=== PATIENT | male | born 1930 | race Caucasian/White ===

== ENCOUNTER 2021-02-16 13:38 | Inpatient (IN) ==
[2021-02-16 15:28] LABS: Hematocrit (blood only) 48.5 % (42-52); Hemoglobin 16.8 g/dL (14.0-18.0); Mean Corpuscular Hemoglobin 32.2 pg (25-34); Mean Corpuscular Hgb Conc 34.6 g/dL (32-36); Mean Corpuscular Volume 92.9 fL (80-100); Platelet Count 254 K/uL (130-400); RDW Coefficient of Variation 13.9 % (11.5-14.5); RDW Standard Deviation 47.1 fL (36.4-46.3); Red Blood Count 5.22 M/uL (4.7-6.1); White Blood Count 22.68 K/uL (4.8-10.8)
[2021-02-16 15:46] LABS: Albumin Level 2.6 gm/dl (3.4-5.0); Blood Urea Nitrogen 38 mg/dl (7-18); Calcium 9.1 mg/dl (8.5-10.1); Carbon Dioxide 29 mmol/L (21-32); Chloride 99 mmol/L (98-107); Est GFR (African American) 42.3 ml/min; Est GFR (Non-African American) 36.5 ml/min; Glucose 136 mg/dl (70-99); Lipase 96 U/L (73-393); Potassium 4.6 mmol/L (3.5-5.1); Sodium 133 mmol/L (136-145)
--- NOTE | 2021-02-16 15:52 | Emergency Department Note ---
History of Present Illness General Chief complaint: Illness Stated complaint: FEVER,ABD PAIN,NOT EATING,WEAKNESS,REF BY DOC Time Seen by Provider: 02/16/21 15:31 Source: patient and family History of Present Illness Provider complaint: Abdominal pain Onset (ago): week(s) Location: abdomen and right Radiation: non-radiation Pain Consistency: + intermittent Maximum Pain Intensity: 6 Quality: + dull Relieved By: + none Exacerbated By: + none Associated symptoms: + fever/chills and + nausea/vomiting (Nausea no vomiting); no chest pain, no cough, no headaches, no malaise and no shortness of breath This is an 89-year-old male sent over from his doctor's office for evaluation of fever and abdominal pain. The patient states that he has had abdominal pain on the right side for approximately 1 week. The pain is intermittent. He describes it as dull. No modifying factors. It is associated with a fever up to 100.6 at his doctor's office today. He has been nauseated but not vomiting. He has had no appetite and has not been eating very much according to his . He has had no urinary symptoms, diarrhea or black or bloody stools. The patient denies any cough or cold symptoms or known exposure to COVID-19. He has had his vaccination for COVID-19. He does have a prior history of colon cancer which was resected years ago. He also has a history of bladder cancer. Home Medications Medication Instructions Recorded Confirmed Type PreserVision AREDS 1 tab PO BID 09/14/19 02/16/21 History amlodipine 5 mg PO QPM 09/14/19 02/16/21 History lisinopril 40 mg PO QAM 09/14/19 02/16/21 History metoprolol succinate 100 mg PO QPM 09/14/19 02/16/21 History multivitamin 1 tab PO QAM 09/14/19 02/16/21 History finasteride [Proscar] 5 mg PO QAM 30 Days #30 tab 09/19/19 02/16/21 Rx tamsulosin 0.4 mg PO HS 30 Days #30 cap 09/19/19 02/16/21 Rx aspirin 81 mg tablet,delayed 81 mg PO HS 09/30/19 02/16/21 History release furosemide [Lasix] 20 mg PO QAM 10/08/19 02/16/21 History nitrofurantoin 100 mg PO Q12H 10 Days #20 cap 12/06/20 02/16/21 Rx monohydrate/macrocrystals 100 mg capsule spironolactone 25 mg PO QAM 02/16/21 02/16/21 History Allergies Allergy/AdvReac Type Severity Reaction Status Date / Time No Known Allergies Allergy Unknown Verified 02/16/21 16:19 Past Med/Surg History Medical History (Updated 02/16/21 @ 20:06 by Jerson Francois MD) Abnormal CT scan of lung Asymptomatic hypertensive urgency Improved- BP 126/60 at cardio appt 10/07/19 Atrial fibrillation Bladder cancer Bladder mass BPH loc w urin obs/LUTS CHF (congestive heart failure) Clot retention of urine Colon cancer 2002 Diastolic heart failure Dyspnea Gross hematuria Hypertension Pleural effusion on right S/p thoracentesis - 1300ml during admission from 09/19/19- feels secondary to decompensated HF. Pneumonia age 18 Pulmonary hypertension Pulmonary nodule Followed by pulm - incidental finding Surgical History History of cataract extraction History of colonoscopy History of cystoscopy EVACUATION OF BLOOD CLOTS History of transurethral resection of prostate 10/19/19-transurethral resection bladder tumor with resection of bladder neck & prostate. S/P carpal tunnel release R/L S/P colon resection 2002 S/P TKR (total knee replacement) R/L S/P tonsillectomy Family History Family/Other Cancer Heart disease Mother , age 85 of stroke No problems noted. Father , age 69 Myocardial infarction Brother No problems noted. 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 and A total of 10 systems reviewed and were otherwise negative Physical Exam Vital Signs Vital Signs - 24 hr 02/16/21 13:41 02/16/21 15:21 02/16/21 15:30 Temperature 37.0 C Temperature Source Temporal Artery Scan Pulse Rate 68 73 71 Pulse Rate from SpO2 Sensor 71 70 Respiratory Rate 18 25 H 38 H Respiratory Effort / Characteristics Non-Labored Respiratory Depth Normal Blood Pressure 177/81 H 178/72 H 167/82 H Blood Pressure Mean 113 107 110 Pulse Oximetry 95 97 97 Oxygen Delivery Method Room Air Sepsis Recent Fever Within 48 Hours No Sepsis New/Unexplained Change in Mental Status No Sepsis Action Taken by Nursing No Action Required 02/16/21 16:00 02/16/21 17:00 02/16/21 17:30 Temperature Temperature Source Pulse Rate 70 65 65 Pulse Rate from SpO2 Sensor 70 66 64 Respiratory Rate 22 28 H 22 Respiratory Effort / Characteristics Respiratory Depth Blood Pressure 172/71 H 175/79 H 170/81 H Blood Pressure Mean 104 111 110 Pulse Oximetry 95 95 94 Oxygen Delivery Method Sepsis Recent Fever Within 48 Hours Sepsis New/Unexplained Change in Mental Status Sepsis Action Taken by Nursing 02/16/21 18:00 02/16/21 18:30 Temperature Temperature Source Pulse Rate 63 67 Pulse Rate from SpO2 Sensor 62 67 Respiratory Rate 25 H 17 Respiratory Effort / Characteristics Respiratory Depth Blood Pressure 171/85 H 178/87 H Blood Pressure Mean 113 117 Pulse Oximetry 95 95 Oxygen Delivery Method Sepsis Recent Fever Within 48 Hours Sepsis New/Unexplained Change in Mental Status Sepsis Action Taken by Nursing Constitutional: Vital signs reviewed. Eyes: Pupils are equal round reactive to light. Conjunctiva are noninjected. ENT: Pharynx is clear without erythema or exudate. Mucous membranes are moist. Neck supple without meningeal signs. Respiratory: Clear to auscultation bilaterally. Breath sounds are equal bilaterally. Cardiovascular: Irregularly irregular rhythm. Regular rate. GI: Soft, nondistended with tenderness over the right mid and upper abdomen. No guarding. No Bustillos sign. Bowel sounds are present. Musculoskeletal: No peripheral edema. No lower extremity tenderness. Integumentary: No cyanosis. or jaundice. Neurological: The patient is awake and alert. No focal deficits. Psychiatric: Normal affect. Not anxious appearing. Course Administered Medications Discontinued Medications Piperacillin Sod/Tazobactam Sod (Zosyn) 4.5 gm in 120 mls @ 240 mls/hr IV NOW ONE Stop: 02/16/21 18:17 Last Admin: 02/16/21 17:58 Dose: 240 mls/hr Documented by: [id number] Medical Decision Making Differential Diagnosis Colon cancer, abdominal mass, bowel obstruction, pancreatitis, pneumonia, sepsis, pyelonephritis Medical Records Attestation: I reviewed the patient's medical records. I did perform a limited focused review of portions of the patient's old chart on the electronic medical record. The patient has had no recent pertinent visits to this hospital. Home Medications Current Medication List: was personally reviewed by me Laboratory Data Attestation: I reviewed the patient's lab results. Result diagrams: 02/16/21 15:08 02/16/21 15:08 Lab Results 02/16/21 02/16/21 02/16/21 Range/Units 15:08 15:08 15:38 WBC 22.68 H (4.8-10.8) K/uL RBC 5.22 (4.7-6.1) M/uL Hgb 16.8 (14.0-18.0) g/dL Hct 48.5 (42-52) % MCV 92.9 (80-100) fL MCH 32.2 (25-34) pg MCHC 34.6 (32-36) g/dL RDW Std Deviation 47.1 H (36.4-46.3) fL RDW Coeff of Naeem 13.9 (11.5-14.5) % Plt Count 254 (130-400) K/uL MPV 11.0 H (7.4-10.4) fL Immature Gran % (Auto) 0.5 % Neut % (Auto) 90.0 % Lymph % (Auto) 6.6 % [place] % (Auto) 2.9 % Eos % (Auto) 0.0 % Baso % (Auto) 0.0 % Neut # (Auto) 20.39 H (1.4-6.5) K/uL Lymph # (Auto) 1.50 (1.2-3.4) K/uL [place] # (Auto) 0.66 H (0.11-0.59) K/uL Eos # (Auto) 0.00 (0-0.5) K/uL Baso # (Auto) 0.01 (0-0.2) K/uL Immature Gran # (Auto) 0.12 H (0.00-0.02) K/uL Polychromasia 1+ Sodium 133 L (136-145) mmol/L Potassium 4.6 (3.5-5.1) mmol/L Chloride 99 (98-107) mmol/L Carbon Dioxide 29 (21-32) mmol/L Anion Gap 5.0 (3-11) BUN 38 H (7-18) mg/dl Creatinine 1.65 H (0.6-1.4) mg/dl Est Cr Clr Drug Dosing Not Reportable Est GFR ( Amer) 42.3 ml/min Est GFR (Non-Af Amer) 36.5 ml/min BUN/Creatinine Ratio 23.0 H (10-20) Glucose 136 H (70-99) mg/dl Lactate (0.4-2.0) mmol/L Calcium 9.1 (8.5-10.1) mg/dl Total Bilirubin 3.1 H (0.2-1) mg/dl AST 65 H (15-37) U/L ALT 103 H (12-78) U/L Alkaline Phosphatase 210 H (45-117) U/L Total Protein 7.6 (6.4-8.2) gm/dl Albumin 2.6 L (3.4-5.0) gm/dl Globulin 4.9 H (2.5-4.0) gm/dl Albumin/Globulin Ratio 0.5 L (0.9-2) Lipase 96 (73-393) U/L Urine Color Dark Yellow Urine Appearance Turbid A (Clear) Urine pH 5.0 (4.5-7.5) Ur Specific [place] 1.019 (1.000-1.030) Urine Protein 2+ H (Negative) Urine Glucose (UA) Negative (Negative) Urine Ketones Trace H (Negative) Urine Blood 3+ H (Negative) Urine Nitrite Negative (Negative) Urine Bilirubin 1+ H (Negative) Urine Urobilinogen Positive H (Negative) Ur Leukocyte Esterase 3+ H (Negative) Urine WBC (Auto) >30 H (0-5) /hpf Urine RBC (Auto) 5-10 H (0-4) /hpf U Hyaline Cast (Auto) 1-5 (0-5) /lpf U Epithel Cells (Auto) 20-30 H (0-5) /lpf Urine Bacteria (Auto) 4+ H (Negative) Urine Yeast Not Reportable COVID-19 Eval Order SARS-CoV-2 (PCR) (Negative) 02/16/21 02/16/21 02/16/21 Range/Units 15:46 16:10 16:10 WBC (4.8-10.8) K/uL RBC (4.7-6.1) M/uL Hgb (14.0-18.0) g/dL Hct (42-52) % MCV (80-100) fL MCH (25-34) pg MCHC (32-36) g/dL RDW Std Deviation (36.4-46.3) fL RDW Coeff of Naeem (11.5-14.5) % Plt Count (130-400) K/uL MPV (7.4-10.4) fL Immature Gran % (Auto) % Neut % (Auto) % Lymph % (Auto) % [place] % (Auto) % Eos % (Auto) % Baso % (Auto) % Neut # (Auto) (1.4-6.5) K/uL Lymph # (Auto) (1.2-3.4) K/uL [place] # (Auto) (0.11-0.59) K/uL Eos # (Auto) (0-0.5) K/uL Baso # (Auto) (0-0.2) K/uL Immature Gran # (Auto) (0.00-0.02) K/uL Polychromasia Sodium (136-145) mmol/L Potassium (3.5-5.1) mmol/L Chloride (98-107) mmol/L Carbon Dioxide (21-32) mmol/L Anion Gap (3-11) BUN (7-18) mg/dl Creatinine (0.6-1.4) mg/dl Est Cr Clr Drug Dosing Est GFR ( Amer) ml/min Est GFR (Non-Af Amer) ml/min BUN/Creatinine Ratio (10-20) Glucose (70-99) mg/dl Lactate 1.8 (0.4-2.0) mmol/L Calcium (8.5-10.1) mg/dl Total Bilirubin (0.2-1) mg/dl AST (15-37) U/L ALT (12-78) U/L Alkaline Phosphatase (45-117) U/L Total Protein (6.4-8.2) gm/dl Albumin (3.4-5.0) gm/dl Globulin (2.5-4.0) gm/dl Albumin/Globulin Ratio (0.9-2) Lipase (73-393) U/L Urine Color Urine Appearance (Clear) Urine pH (4.5-7.5) Ur Specific [place] (1.000-1.030) Urine Protein (Negative) Urine Glucose (UA) (Negative) Urine Ketones (Negative) Urine Blood (Negative) Urine Nitrite (Negative) Urine Bilirubin (Negative) Urine Urobilinogen (Negative) Ur Leukocyte Esterase (Negative) Urine WBC (Auto) (0-5) /hpf Urine RBC (Auto) (0-4) /hpf U Hyaline Cast (Auto) (0-5) /lpf U Epithel Cells (Auto) (0-5) /lpf Urine Bacteria (Auto) (Negative) Urine Yeast COVID-19 Eval Order Covid19 at [facility] SARS-CoV-2 (PCR) NEGATIVE (Negative) Imaging Data Radiologist's Impression: Abdomen/Pelvis CT 02/16/21 15:45 CT SCAN OF THE ABDOMEN AND PELVIS WITHOUT CONTRAST CLINICAL HISTORY: right sided pain eval for mass COMPARISON STUDY: 09/14/2019 TECHNIQUE: CT scan of the abdomen and pelvis was performed from the lung bases to the proximal femurs. Images are reviewed in the axial, sagittal, and coronal planes. IV contrast was not administered for this examination. A dose lowering technique was utilized adhering to the principles of ALARA. CT DOSE: 1255.39 mGycm FINDINGS: Lower chest: The heart is enlarged with coronary artery calcifications. There are small bilateral pleural effusions with associated right basilar parenchymal opacities, atelectatic versus infectious/inflammatory Liver: There is a 1 cm left lobe hepatic cyst. No additional masses are visualized given the limitations of a noncontrast study Gallbladder: Cholelithiasis Spleen: Normal in size and attenuation. Pancreas: Unremarkable. Adrenal glands: Unremarkable. Kidneys: No renal, ureteral, or bladder calculi are visualized. Bowel: There are no transition zones indicate bowel obstruction. There is a sigmoid anastomosis. There is colonic diverticulosis. There are no acute peridiverticular inflammatory changes. The appendix is mildly thickened measuring 8 mm. This remain similar to the prior study. There is minimal infilt ration of the fat surrounding the distal appendix but this appears to relate to generalized peritoneal edema. Peritoneum: There is no intraperitoneal free air or abdominal ascites. Vasculature: There are extensive atheromatous changes within the aorta with a high-grade stenosis of the infrarenal abdominal aorta. There is no evidence of aneurysm. There are extensive atheromatous changes within the common femoral and superficial femoral arteries. Adenopathy: None. Pelvic viscera: There is mild bladder wall thickening. There are prostatic calcifications present. There is presacral soft tissue thickening, likely postsurgical. Skeletal structures: There is an age-indeterminate superior endplate L2 compression fracture which was not present on the prior study. IMPRESSION: 1. Bilateral pleural effusions right greater than left associated right basilar atelectasis/consolidation 2. Cardiomegaly and coronary artery calcifications 3. Cholelithiasis 4. No evidence of bowel obstruction. No evidence of free air 5. Mild appendiceal thickening, similar to the preceding study. No convincing evidence of acute appendicitis, given the limitations of a study performed without intravenous or oral contrast. No evidence of acute diverticulitis 6. Extensive atherosclerotic arterial disease with a suspected high-grade aortic stenosis, and bilateral common femoral and superficial femoral artery stenotic lesions 7. Mild bladder wall thickening. 8. Interval development of an age-indeterminate superior endplate L2 compression fracture 9. No renal, ureteral, or bladder calculi identified ACT 112: Negative or not required by law. Electronically signed by: Main Cárdenas M.D. 02/16/2021 5:00 PM Chest X-Ray 02/16/21 15:47 XR chest 1V portable CLINICAL HISTORY: fever COMPARISON STUDY: 09/19/2019, CT scan dated 10/06/2020 FINDINGS: The heart is enlarged. There is an 11 mm right lower lung zone pulmon tammy nodule. There is small right pleural effusion with associated right basilar opacities atelectatic versus/inflammatory there is no pneumothorax.[ IMPRESSION: 1. Cardiomegaly 2. Small right pleural effusion with associated right basilar atelectas is/consolidation 3. Indeterminate 11 mm right lower lung zone pulmonary nodule ACT 112: Negative or not required by law. Electronically signed by: Main Cárdenas M.D. 02/16/2021 4:09 PM ECG Data Attestation: I personally reviewed and interpreted this ECG as follows: Indication: + abdominal pain Rate (beats per minute): 70 Rhythm: + atrial fibrillation ECG Intervals/blocks: + Right Bundle branch block ECG Findings: no PVCs Comparison ECG Date: from (September 15, 2019) Change: no significant change MDM Narrative I did evaluate the patient as noted above. The patient is presenting with fever and right-sided abdominal pain. IV access was established. I did place an order for continuous cardiac monitoring. The monitor showed atrial fibrillation with rate of 70 bpm. I did order and personally review the patient's 12-lead EKG as described above. He has A. fib without any acute ischemic changes. I did order and personally reviewed the images of the patient's chest x-ray as described above. He has a right-sided effusion with atelectasis versus consolidation. I did order a urine analysis. He has a significant UTI. Blood cultures were ordered. He was given Zosyn IV. I did order and review the patient's blood work as noted in the electronic medical record. His white count is elevated at 22,000. He is not anemic. Platelet count is within normal limits. Electrolytes demonstrate a sodium of 133. His creatinine is elevated 1.65. LFTs are also abnormal with a bilirubin at 3.1, AST of 65, ALT of 103 and alk phos of 210. Covid testing is negative. I did order a CT of the abdomen and pelvis. I did review the images myself as well as the radiology report as described above. He has cholelithiasis without cholecystitis. He has mild appendiceal thickening but this was present on his previous CT scan and he has no convincing evidence of acute appendicitis. There is mild bladder wall thickening. He has gallstones but no evidence of cholecystitis according to the radiologist. I did order a gallbladder ultrasound which is currently pending. I did discuss the test results with the patient and his . He will be hospitalized for further care and evaluation. I did discuss case with the hospitalist and case loader operator. Impression & Plan Sepsis, Acute pyelonephritis, NATE (acute kidney injury), Abnormal LFTs, Cholelithiasis Discharge Plan Visit Data Chief Complaint: Illness Stated Complaint: FEVER,ABD PAIN,NOT EATING,WEAKNESS,REF BY DOC ED Provider: Jerson Francois Discharge Problem: Sepsis, Acute pyelonephritis, NATE (acute kidney injury), Abnormal LFTs, Cholelithiasis Patient Disposition: Being Evaluated by Hospitalist Forms Stand Alone Forms: My [facility] Prescriptions Prescriptions: No Action nitrofurantoin monohyd/m-cryst [Macrobid] 100 mg capsule 100 mg PO Q12H 10 Days Qty: 20 RF: 0 aspirin [Adult Aspirin Regimen] 81 mg tablet,delayed release (DR/EC) 81 mg PO HS RF: 0 multivitamin Tablet 1 tab PO QAM RF: 0 metoprolol succinate 100 mg tablet extended release 24 hr 100 mg PO QPM RF: 0 amlodipine 10 mg Tablet 5 mg PO QPM RF: 0 lisinopril 40 mg Tablet 40 mg PO QAM RF: 0 PreserVision AREDS [id number] Tablet 1 tab PO BID RF: 0 tamsulosin 0.4 mg Capsule 0.4 mg PO HS 30 Days Qty: 30 RF: 3 finasteride [Proscar] 5 mg Tablet 5 mg PO QAM 30 Days Qty: 30 RF: 3 furosemide [Lasix] 20 mg tablet 20 mg PO QAM RF: 0 spironolactone 25 mg tablet 25 mg PO QAM RF: 0 Referrals Referrals: Nahun Escobar MD [Primary Care Provider] - Discharge Problem: Sepsis Qualifiers: Sepsis type: sepsis due to unspecified organism Sepsis acute organ dysfunction status: with acute organ dysfunction Severe sepsis acute organ dysfunction type: acute renal failure Acute renal failure type: unspecified Severe sepsis shock status: without septic shock Qualified Code(s): A41.9 - Sepsis, unspecified organism Cholelithiasis Qualifiers: Cholelithiasis location: gallbladder
[2021-02-16 15:53] LABS: Alanine Aminotransferase 103 U/L (12-78); Albumin Globulin Ratio 0.5 (0.9-2); Alkaline Phosphatase 210 U/L (45-117); Aspartate Aminotransferase 65 U/L (15-37); Bilirubin,Total 3.1 mg/dl (0.2-1); Globulin 4.9 gm/dl (2.5-4.0); Total Protein 7.6 gm/dl (6.4-8.2)
[2021-02-16 15:54] LABS: Appearance Urine Turbid (Clear); Bacteria Urine Automated 4+ (Negative); Blood Urine 3+ (Negative); Color Urine Dark Yellow; Epithelial Cell Urine Auto 20-30 /lpf (0-5); Glucose Urine UA Negative (Negative); Ketones Urine Trace (Negative); Leukocyte Esterase Urine 3+ (Negative); Nitrite Urine Negative (Negative); Protein Urine 2+ (Negative); Specific Gravity Urine 1.019 (1.000-1.030); Urobilinogen Urine Positive (Negative); WBC Urine Automated >30 /hpf (0-5)
[2021-02-16 16:02] LABS: Basophils # (auto) 0.01 K/uL (0-0.2); Immature Granulocytes # (auto) 0.12 K/uL (0.00-0.02); Immature Granulocytes % (auto) 0.5 %; Lymphocytes % (auto) 6.6 %; Monocytes # (auto) 0.66 K/uL (0.11-0.59); Monocytes % (auto) 2.9 %; Neutrophils # (auto) 20.39 K/uL (1.4-6.5); Polychromasia 1+
--- NOTE | 2021-02-16 16:11 | XRay Report ---
XR chest 1V portable CLINICAL HISTORY: fever COMPARISON STUDY: 09/19/2019, CT scan dated 10/06/2020 FINDINGS: The heart is enlarged. There is an 11 mm right lower lung zone pulmonary nodule. There is s mall right pleural effusion with associated right basilar opacities atelectatic versus/inflammatory t here is no pneumothorax.[ IMPRESSION: 1. Cardiomegaly 2. Small right pleural effusion with associated right basilar atelectasis/consolidation 3. Indeterminate 11 mm right lower lung zone pulmonary nodule ACT 112: Negative or not required by law. Electronically signed by: Main Cárdenas M.D. 02/16/2021 4:09 PM
[2021-02-16 16:16] LABS: Bilirubin Urine 1+ (Negative)
--- NOTE | 2021-02-16 17:02 | CT Scan Report ---
CT SCAN OF THE ABDOMEN AND PELVIS WITHOUT CONTRAST CLINICAL HISTORY: right sided pain eval for mass COMPARISON STUDY: 09/14/2019 TECHNIQUE: CT scan of the abdomen and pelvis was performed from the lung bases to the proximal femurs . Images are reviewed in the axial, sagittal, and coronal planes. IV contrast was not administered fo r this examination. A dose lowering technique was utilized adhering to the principles of ALARA. CT DOSE: 1255.39 mGycm FINDINGS: Lower chest: The heart is enlarged with coronary artery calcifications. There are small bilateral ple ural effusions with associated right basilar parenchymal opacities, atelectatic versus infectious/inf lammatory Liver: There is a 1 cm left lobe hepatic cyst. No additional masses are visualized given the limitati ons of a noncontrast study Gallbladder: Cholelithiasis Spleen: Normal in size and attenuation. Pancreas: Unremarkable. Adrenal glands: Unremarkable. Kidneys: No renal, ureteral, or bladder calculi are visualized. Bowel: There are no transition zones indicate bowel obstruction. There is a sigmoid anastomosis. Ther e is colonic diverticulosis. There are no acute peridiverticular inflammatory changes. The appendix i s mildly thickened measuring 8 mm. This remain similar to the prior study. There is minimal infiltrat ion of the fat surrounding the distal appendix but this appears to relate to generalized peritoneal e aranza. Peritoneum: There is no intraperitoneal free air or abdominal ascites. Vasculature: There are extensive atheromatous changes within the aorta with a high-grade stenosis of the infrarenal abdominal aorta. There is no evidence of aneurysm. There are extensive atheromatous ch anges within the common femoral and superficial femoral arteries. Adenopathy: None. Pelvic viscera: There is mild bladder wall thickening. There are prostatic calcifications present. Th ere is presacral soft tissue thickening, likely postsurgical. Skeletal structures: There is an age-indeterminate superior endplate L2 compression fracture which wa s not present on the prior study. IMPRESSION: 1. Bilateral pleural effusions right greater than left associated right basilar atelectasis/consolida tion 2. Cardiomegaly and coronary artery calcifications 3. Cholelithiasis 4. No evidence of bowel obstruction. No evidence of free air 5. Mild appendiceal thickening, similar to the preceding study. No convincing evidence of acute appen dicitis, given the limitations of a study performed without intravenous or oral contrast. No evidence of acute diverticulitis 6. Extensive atherosclerotic arterial disease with a suspected high-grade aortic stenosis, and bilate ral common femoral and superficial femoral artery stenotic lesions 7. Mild bladder wall thickening. 8. Interval development of an age-indeterminate superior endplate L2 compression fracture 9. No renal, ureteral, or bladder calculi identified ACT 112: Negative or not required by law. Electronically signed by: Main Cárdenas M.D. 02/16/2021 5:00 PM
[2021-02-16] MEDS ORDERED: PIPERACILL/TAZOBAC CONSULT ACTIVE PRN ×2 (17:48→19:12)
[2021-02-16] MEDS ORDERED: PIPERACILLIN/TAZOBACTAM 4.5 GM/120 ML BAG IV ONE (17:48)
--- NOTE | 2021-02-16 19:11 | History & Physical Report ---
Date of Service February 16, 2021 Assessment & Plan (1) UTI (urinary tract infection): Presented with right lower quadrant discomfort, weakness and nausea Noted to have UA suggestive of UTI with increase white count Does not meet the sepsis criteria on admission Urine was sent for culture and blood cultures were taken Is started with intravenous Zosyn and will continue We will give cautious amount of intravenous fluid as well Right lower quadrant discomfort CT scan documented to have possible appendicitis but had similar findings before Clinically Bustillos sign has been negative and symptomatically does not feel like a pain appendicitis Symptoms have been going on for 1 week We will observe and get surgical evaluation if needed (2) Acute pyelonephritis: May have acute pyelonephritis No tenderness in the renal angle and CT scan did not identify perinephritis (3) NATE (acute kidney injury): Noted to have increased BUN and creatinine Has NATE likely secondary to dehydration We will give cautious amount of intravenous fluid and monitor PRP (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 and has been ongoing BCG treatment Was told that there is no recurrence (5) Abnormal LFTs: Noted to have abnormal LFTs Has cholelithiasis without any evidence of cholecystitis We will get an ultrasound of the liver to rule out any acute cholecystitis We will monitor liver function We will get hepatitis profile (6) Atrial fibrillation: Heart rate is controlled Continue with current medication Not on any anticoagulation likely secondary to history of hematuria and bladder cancer (7) CHF (congestive heart failure): Does not have any fluid overload and/or symptomatic CHF (8) Pulmonary nodule: Has been followed up in the pulmonary clinic DVT prophylaxis Subcu heparin CODE STATUS Full History of Present Illness Chief Complaint: Right lower abdomen discomfort with nausea, anorexia and weakness for 1 week Primary Care Provider: Nahun Escobar MD He is an 89-year-old male with significant past medical history including urothelial carcinoma of the bladder with ongoing BCG treatment, atrial fibrillation not on any anticoagulation, hypertension, history of CHF with preserved EF, history of colon cancer status post surgery and history of prostatic hypertrophy status post TURP apparently has been complaining of right lower quadrant abdominal discomfort associated with nausea, anorexia and weakness for the last 1 week. He was seen in the clinic today and was sent in with above symptoms for further evaluation and he was noted to have fever of 100.6 degrees in the clinic. He denies any dysuria and frequency, denies any bowel habit changes, any chest pain or palpitation, any fever or chills, any numbness or tingling involving any of the extremities. He was noted to have UA suggestive of infection and his white count was elevated to 22,000. CT scan did not show any intestinal obstruction or any acute appendicitis. He was started with intravenous Zosyn and was admitted to the hospital for continuation of care. Allergies Allergy/AdvReac Type Severity Reaction Status Date / Time No Known Allergies Allergy Unknown Verified 02/16/21 16:19 Home Medications Medication Instructions Recorded Confirmed Type PreserVision AREDS 1 tab PO BID 09/14/19 02/16/21 History amlodipine 5 mg PO QPM 09/14/19 02/16/21 History lisinopril 40 mg PO QAM 09/14/19 02/16/21 History metoprolol succinate 100 mg PO QPM 09/14/19 02/16/21 History multivitamin 1 tab PO QAM 09/14/19 02/16/21 History finasteride [Proscar] 5 mg PO QAM 30 Days #30 tab 09/19/19 02/16/21 Rx tamsulosin 0.4 mg PO HS 30 Days #30 cap 09/19/19 02/16/21 Rx aspirin 81 mg tablet,delayed 81 mg PO HS 09/30/19 02/16/21 History release furosemide [Lasix] 20 mg PO QAM 10/08/19 02/16/21 History nitrofurantoin 100 mg PO Q12H 10 Days #20 cap 12/06/20 02/16/21 Rx monohydrate/macrocrystals 100 mg capsule spironolactone 25 mg PO QAM 02/16/21 02/16/21 History Past Med/Surg History Medical History (Updated 02/16/21 @ 20:06 by Jerson Francois MD) Abnormal CT scan of lung Asymptomatic hypertensive urgency Improved- BP 126/60 at cardio appt 10/07/19 Atrial fibrillation Bladder cancer Bladder mass BPH loc w urin obs/LUTS CHF (congestive heart failure) Clot retention of urine Colon cancer 2002 Diastolic heart failure Dyspnea Gross hematuria Hypertension Pleural effusion on right S/p thoracentesis - 1300ml during admission from 09/19/19- feels secondary to decompensated HF. Pneumonia age 18 Pulmonary hypertension Pulmonary nodule Followed by pulm - incidental finding Surgical History History of cataract extraction History of colonoscopy History of cystoscopy EVACUATION OF BLOOD CLOTS History of transurethral resection of prostate 10/19/19-transurethral resection bladder tumor with resection of bladder neck & prostate. S/P carpal tunnel release R/L S/P colon resection 2002 S/P TKR (total knee replacement) R/L S/P tonsillectomy Family History Family/Other Cancer Heart disease Mother , age 85 of stroke No problems noted. Father , age 69 Myocardial infarction Brother No problems noted. 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 Other Information That Helps Us Care for You: No Feels Safe at Home: Yes Safety Concerns: Feels Safe At This Time Childhood Exposure to Second-Hand Smoke: No caffeine: Yes (a few cups of coffee in the am) Assistive Devices: Walker Review of Systems Review of Systems: All systems reviewed & are unremarkable except as noted in HPI & below Physical Exam Physical Exam: Lying in bed comfortably Constitutional: well developed, well nourished, + ill appearing and + obese Eyes: PERRL, conjunctivae normal, anicteric sclerae ENMT: external ear and nose normal, oropharynx normal Neck: trachea midline, no thyromegaly Respiratory: no respiratory distress Auscultation: lungs clear to auscultation bilaterally Cardiovascular: Rate/Rhythm: + irregularly irregular Heart Sounds: + murmur (2/6 ESM over precordium) Extremities: + edema (Trace edema bilaterally) Gastrointestinal (Abdomen): Inspection/Auscultation: + abdomen distended and normal bowel sounds Percussion/Palpation: + abdomen tender (Mildly tender right lower quadrant, palpable large intestine, McBurney's -) and abdomen soft Musculoskeletal: No acute arthritis in any joint Neurologic: Alert awake and oriented x3. No focal sensory or motor deficit appreciated Psychiatric: A+Ox3, euthymic affect Lymphatic: no cervical or axillary lymphadenopathy Results & Data Results & Data ([facility]) Vital Signs (Past 12 Hours) Vital Signs Temp Pulse Resp BP Pulse Ox 02/16/21 18:30 67 17 178/87 H 95 02/16/21 18:00 63 25 H 171/85 H 95 02/16/21 17:30 65 22 170/81 H 94 02/16/21 17:00 65 28 H 175/79 H 95 02/16/21 16:00 70 22 172/71 H 95 02/16/21 15:30 71 38 H 167/82 H 97 02/16/21 15:21 73 25 H 178/72 H 97 02/16/21 13:41 37.0 C 68 18 177/81 H 95 Laboratory Results Short CBC 02/16/21 Range/Units 15:08 WBC 22.68 H (4.8-10.8) K/uL Hgb 16.8 (14.0-18.0) g/dL Hct 48.5 (42-52) % Plt Count 254 (130-400) K/uL BMP 02/16/21 15:08 Sodium 133 L Potassium 4.6 Chloride 99 Carbon Dioxide 29 BUN 38 H Creatinine 1.65 H Glucose 136 H Calcium 9.1 Liver Function 02/16/21 Range/Units 15:08 Total Bilirubin 3.1 H (0.2-1) mg/dl AST 65 H (15-37) U/L ALT 103 H (12-78) U/L Alkaline Phosphatase 210 H (45-117) U/L Albumin 2.6 L (3.4-5.0) gm/dl Urine 02/16/21 Range/Units 15:38 Urine Color Dark Yellow Urine Appearance Turbid A (Clear) Urine pH 5.0 (4.5-7.5) Ur Specific [place] 1.019 (1.000-1.030) Urine Protein 2+ H (Negative) Urine Glucose (UA) Negative (Negative) Diagnostic Findings CAT of the abdomen and pelvis: IMPRESSION: 1. Bilateral pleural effusions right greater than left associated right basilar atelectasis/consolidation 2. Cardiomegaly and coronary artery calcifications 3. Cholelithiasis 4. No evidence of bowel obstruction. No evidence of free air 5. Mild appendiceal thickening, similar to the preceding study. No convincing evidence of acute appendicitis, given the limitations of a study performed without intravenous or oral contrast. No evidence of acute diverticulitis 6. Extensive atherosclerotic arterial disease with a suspected high-grade aortic stenosis, and bilateral common femoral and superficial femoral artery stenotic lesions 7. Mild bladder wall thickening. 8. Interval development of an age-indeterminate superior endplate L2 compression fracture 9. No renal, ureteral, or bladder calculi identified
[2021-02-16] MEDS ORDERED: PIPERACILLIN/TAZOBACTAM 4.5 GM in DEXTROSE 5% 100 ML IV SCH (19:15)
[2021-02-16] MEDS: SODIUM CHLORIDE 0.9% 1000ML 1,000 ML IV SCH ×2 (19:30→23:21)
--- NOTE | 2021-02-16 20:56 | Ultrasound Report ---
ULTRASOUND RIGHT UPPER QUADRANT ABDOMEN CLINICAL HISTORY: Right upper quadrant abdominal pain. Cholelithiasis. COMPARISON STUDY: Abdominal CT performed the same day 02/16/2021. TECHNIQUE: Real-time, grayscale, and color flow sonography of the right upper quadrant of the abdomen was performed. Images are reviewed in the transverse and longitudinal planes. FINDINGS: Liver: The liver appears cirrhotic in morphology and heterogeneous in echotexture. There is mild nodu larity of the hepatic surface contour. There is no intrahepatic biliary ductal dilatation. The main p ortal vein is patent. Gallbladder: The gallbladder is filled with shadowing gallstones. There is no gallbladder wall thicke ashlyn or pericholecystic fluid. A sonographic Bustillos's sign is reportedly absent. The common bile duct measures up to 0.2 cm in diameter. Pancreas: Visualized portions of the pancreatic head and body are normal in appearance. The splenic v ein is patent. Right kidney: Survey images of the right kidney demonstrate normal size and echotexture. There is no hydronephrosis. Ascites: None. Pleural spaces: A right pleural effusion is noted. IMPRESSION: 1. Cholelithiasis without sonographic evidence of acute cholecystitis. 2. The appearance of the liver suggests early change of cirrhosis. 3. A right pleural effusion is noted. ACT 112: Negative or not required by law. Electronically signed by: Manuel Veronica M.D. 02/16/2021 8:55 PM
[2021-02-16] MEDS: ASPIRIN 81 MG ECTAB PO SCH (23:26)
[2021-02-16] MEDS: METOPROLOL SUCC 50MG EXT REL TAB PO SCH (23:27)
[2021-02-16] MEDS: amLODIPine BESYLATE 5 MG TAB PO SCH (23:27)
[2021-02-16] MEDS: TAMSULOSIN HCL 0.4 MG CAP PO SCH (23:28)
[2021-02-16] MEDS: PIPERACILLIN/TAZOBACTAM 3.375 GM in DEXTROSE 5% 100 ML IV SCH (23:31)
[2021-02-17 05:52] LABS: Basophils # (auto) 0.02 K/uL (0-0.2); Basophils % (auto) 0.1 %; Eosinophils # (auto) 0.01 K/uL (0-0.5); Eosinophils % (auto) 0.1 %; Hematocrit (blood only) 44.5 % (42-52); Immature Granulocytes # (auto) 0.08 K/uL (0.00-0.02); Immature Granulocytes % (auto) 0.4 %; Lymphocytes # (auto) 0.92 K/uL (1.2-3.4); Lymphocytes % (auto) 4.9 %; Mean Corpuscular Hemoglobin 31.5 pg (25-34); Mean Corpuscular Hgb Conc 33.7 g/dL (32-36); Mean Corpuscular Volume 93.5 fL (80-100); Mean Platelet Volume 10.7 fL (7.4-10.4); Monocytes # (auto) 1.05 K/uL (0.11-0.59); Monocytes % (auto) 5.6 %; Neutrophils # (auto) 16.66 K/uL (1.4-6.5); Neutrophils % (auto) 88.9 %; Platelet Count 218 K/uL (130-400); RDW Coefficient of Variation 14.1 % (11.5-14.5); RDW Standard Deviation 48.2 fL (36.4-46.3); Red Blood Count 4.76 M/uL (4.7-6.1); White Blood Count 18.74 K/uL (4.8-10.8)
[2021-02-17] MEDS: SODIUM CHLORIDE 0.9% 1000ML 1,000 ML IV SCH (06:17)
[2021-02-17 06:29] LABS: Albumin Level 2.1 gm/dl (3.4-5.0); BUN Creatinine Ratio 22.2 (10-20); Calcium 8.2 mg/dl (8.5-10.1); Creatinine Clr Calc Pharmacy 31.6 ml/min; Est GFR (African American) 38.1 ml/min; Est GFR (Non-African American) 32.9 ml/min; Potassium 4.5 mmol/L (3.5-5.1)
[2021-02-17 06:33] LABS: Albumin Globulin Ratio 0.6 (0.9-2); Bilirubin,Total 1.9 mg/dl (0.2-1); Globulin 3.8 gm/dl (2.5-4.0); Total Protein 5.9 gm/dl (6.4-8.2)
[2021-02-17] MEDS: SPIRONOLACTONE 25 MG TAB PO SCH (07:36)
[2021-02-17] MEDS: FINASTERIDE 5 MG TAB PO SCH (07:36)
[2021-02-17] MEDS: CEROVITE ADV FORMULA TAB PO SCH (07:37)
[2021-02-17] MEDS: PIPERACILLIN/TAZOBACTAM 3.375 GM in DEXTROSE 5% 100 ML IV SCH ×2 (07:37→15:25)
[2021-02-17] MEDS ORDERED: MULTIVITAMIN TAB PO SCH (09:00)
--- NOTE | 2021-02-17 09:56 | Ultrasound Report ---
EXAMINATION: RENAL ULTRASOUND CLINICAL HISTORY: Acute renal insufficiency. History of hepatocellular carcinoma COMPARISON STUDY: CT scan dated 02/16/2021 FINDINGS: The right kidney measures 11.4 cm. The left kidney measures 10.9 cm.. There is no evidence of hydronephrosis. There is an 8 mm hypoechoic midpole left renal lesion. This demonstrates interna l echoes and is therefore indeterminate. The bladder was not well distended. Neither ureteral jet was visualized. There is posterior bladder w all thickening. IMPRESSION : 1. Posterior bladder wall thickening. 2. Indeterminate 8 mm exophytic mid pole left renal lesion 3. No evidence of hydronephrosis ACT 112: Negative or not required by law. Electronically signed by: Main Cárdenas M.D. 02/17/2021 9:55 AM
--- NOTE | 2021-02-17 10:23 | Hospitalist Progress Note ---
Date of Service February 17, 2021 Assessment & Plan (1) UTI (urinary tract infection): Presented with right lower quadrant discomfort, weakness and nausea Noted to have UA suggestive of UTI with increase white count Does not meet the sepsis criteria on admission Is started with intravenous Zosyn and will continue Urine culture is growing gram-negative bacilli and 1 out of 2 blood culture is growing gram-negative bacilli-further identification and sensitivity pending Right lower quadrant discomfort CT scan documented to have possible appendicitis but had similar findings before Clinically Bustillos sign has been negative and symptomatically does not feel like a pain appendicitis Symptoms have been going on for 1 week Ultrasound of the liver did not show any acute cholecystitis Clinically much better (2) Acute pyelonephritis: May have acute pyelonephritis No tenderness in the renal angle and CT scan did not identify perinephritis (3) NATE (acute kidney injury): Noted to have increased BUN and creatinine Has NATE likely secondary to dehydration Worsening BUN and creatinine Ultrasound of the kidney did not show an obstruction Will give cautious amount of intravenous fluid and monitor PRP (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 and has been ongoing BCG treatment Was told that there is no recurrence Ultrasound did show thickening of the posterior bladder wall We will ask for outpatient urology follow-up (5) Abnormal LFTs: Noted to have abnormal LFTs Has cholelithiasis without any evidence of cholecystitis We will get an ultrasound of the liver -did not show any acute cholecystitis We will get hepatitis profile-pending Liver functions have been improving (6) Atrial fibrillation: Heart rate is controlled Continue with current medication Not on any anticoagulation likely secondary to history of hematuria and bladder cancer (7) CHF (congestive heart failure): Does not have any fluid overload and/or symptomatic CHF (8) Pulmonary nodule: Has been followed up in the pulmonary clinic DVT prophylaxis Subcu heparin CODE STATUS Full Admission and Anticipated Discharge Date Admission Date: February 16, 2021 Subjective 02/17/2021 The patient was seen and examined in medical telemetry unit He has been feeling a lot better since admission Denies any abdominal pain and no fever and no chills Review of Systems Review of Systems: All systems reviewed and are unremarkable except as noted below Gastrointestinal: + abdominal pain (Much improved) Physical Exam Physical Exam: Lying in bed comfortably Constitutional: well developed, well nourished, + ill appearing and + obese Eyes: PERRL, conjunctivae normal, anicteric sclerae ENMT: external ear and nose normal, oropharynx normal Neck: trachea midline, no thyromegaly Respiratory: no respiratory distress Auscultation: lungs clear to auscultation bilaterally Cardiovascular: Rate/Rhythm: + irregularly irregular Heart Sounds: + murmur (2/6 ESM over precordium) Extremities: + edema (Trace edema bilaterally) Gastrointestinal (Abdomen): Inspection/Auscultation: + abdomen distended and normal bowel sounds Percussion/Palpation: + abdomen tender (Mildly tender right lower quadrant, palpable large intestine, McBurney's -) and abdomen soft Musculoskeletal: No acute arthritis in any joint Neurologic: Alert, awake and oriented x3. Generally weak but no focal sensory and motor deficit appreciated Psychiatric: A+Ox3, euthymic affect Lymphatic: no cervical or axillary lymphadenopathy Results & Data Results & Data ([facility]) Vital Signs (Past 12 Hours) Vital Signs Temp Pulse Pulse Resp BP BP Pulse Ox 02/17/21 07:09 57 L 02/17/21 07:00 36.7 C 66 20 155/76 H 94 02/17/21 03:09 37.0 C 56 L 18 135/72 93 02/16/21 23:25 66 20 153/75 H 96 02/16/21 22:50 77 02/16/21 22:43 36.5 C 76 22 189/78 H 94 02/16/21 22:21 37.1 C Laboratory Results Short CBC 02/16/21 02/17/21 Range/Units 15:08 05:33 WBC 22.68 H 18.74 H (4.8-10.8) K/uL Hgb 16.8 15.0 (14.0-18.0) g/dL Hct 48.5 44.5 (42-52) % Plt Count 254 218 (130-400) K/uL BMP 02/16/21 02/17/21 15:08 05:33 Sodium 133 L 134 L Potassium 4.6 4.5 Chloride 99 102 Carbon Dioxide 29 29 BUN 38 H 40 H Creatinine 1.65 H 1.80 H Glucose 136 H 126 H Calcium 9.1 8.2 L Liver Function 02/16/21 02/17/21 Range/Units 15:08 05:33 Total Bilirubin 3.1 H 1.9 H (0.2-1) mg/dl AST 65 H 41 H (15-37) U/L ALT 103 H 73 (12-78) U/L Alkaline Phosphatase 210 H 163 H (45-117) U/L Albumin 2.6 L 2.1 L (3.4-5.0) gm/dl Urine 02/16/21 Range/Units 15:38 Urine Color Dark Yellow Urine Appearance Turbid A (Clear) Urine pH 5.0 (4.5-7.5) Ur Specific [place] 1.019 (1.000-1.030) Urine Protein 2+ H (Negative) Urine Glucose (UA) Negative (Negative) Medications Administered Current Inpatient Medications Amlodipine Besylate (Amlodipine Besylate 5 Mg Tab) 5 mg PO QPM [facility] Stop: 03/18/21 22:41 Last Admin: 02/16/21 23:27 Dose: 5 mg Documented by: Aspirin (Aspirin 81 Mg Ectab) 81 mg PO HS [facility] Stop: 03/18/21 22:41 Last Admin: 02/16/21 23:26 Dose: 81 mg Documented by: Finasteride (Finasteride 5 Mg Tab) 5 mg PO QAM [facility] Stop: 03/19/21 08:59 Last Admin: 02/17/21 07:36 Dose: 5 mg Documented by: Sodium Chloride (Nss 1000ml) 1,000 mls @ 125 mls/hr IV .Q8H [facility] Stop: 02/17/21 19:14 Last Admin: 02/17/21 06:17 Dose: 125 mls/hr Documented by: Piperacillin Sod/Tazobactam (Sod 3.375 gm/ Dextrose) 115 mls @ 28.75 mls/hr IV Q8H [facility]; Protocol Stop: 02/27/21 00:00 Last Admin: 02/17/21 07:37 Dose: 28.8 mls/hr Documented by: Metoprolol Succinate (Metoprolol Succ 50mg Ext Rel Tab) 100 mg PO QPM [facility] Stop: 03/18/21 22:41 Last Admin: 02/16/21 23:27 Dose: 100 mg Documented by: Miscellaneous Information (Piperacill/Tazobac Consult Active) 1 ea N/A UD PRN PRN Reason: Consult Stop: 03/18/21 19:11 Multivitamins/Minerals (Cerovite Adv Formula Tab) 1 tab PO QAM [facility] Stop: 03/19/21 08:59 Last Admin: 02/17/21 07:37 Dose: 1 tab Documented by: Spironolactone (Spironolactone 25 Mg Tab) 25 mg PO QAM [facility] Stop: 03/19/21 08:59 Last Admin: 02/17/21 07:36 Dose: 25 mg Documented by: Tamsulosin HCl (Tamsulosin Hcl 0.4 Mg Cap) 0.4 mg PO [facility] Stop: 03/18/21 22:41 Last Admin: 02/16/21 23:28 Dose: 0.4 mg Documented by:
[2021-02-17] MEDS: ASPIRIN 81 MG ECTAB PO SCH (21:02)
[2021-02-17] MEDS: amLODIPine BESYLATE 5 MG TAB PO SCH (21:02)
[2021-02-17] MEDS: TAMSULOSIN HCL 0.4 MG CAP PO SCH (21:04)
[2021-02-17] MEDS: METOPROLOL SUCC 50MG EXT REL TAB PO SCH (21:04)
[2021-02-18] MEDS: PIPERACILLIN/TAZOBACTAM 3.375 GM in DEXTROSE 5% 100 ML IV SCH ×3 (01:46→15:58)
[2021-02-18 03:06] LABS: Hepatitis A Antibody IgM NON-REACTIVE (NON-REACTIVE); Hepatitis B Core Antibody IgM NON-REACTIVE (NON-REACTIVE)
[2021-02-18 06:26] LABS: Basophils # (auto) 0.02 K/uL (0-0.2); Basophils % (auto) 0.1 %; Eosinophils # (auto) 0.06 K/uL (0-0.5); Eosinophils % (auto) 0.3 %; Hemoglobin 13.6 g/dL (14.0-18.0); Immature Granulocytes # (auto) 0.15 K/uL (0.00-0.02); Immature Granulocytes % (auto) 0.7 %; Lymphocytes # (auto) 0.67 K/uL (1.2-3.4); Lymphocytes % (auto) 3.3 %; Mean Corpuscular Hemoglobin 31.4 pg (25-34); Mean Corpuscular Hgb Conc 33.2 g/dL (32-36); Mean Corpuscular Volume 94.7 fL (80-100); Mean Platelet Volume 10.7 fL (7.4-10.4); Monocytes # (auto) 1.31 K/uL (0.11-0.59); Monocytes % (auto) 6.5 %; Neutrophils % (auto) 89.1 %; Platelet Count 236 K/uL (130-400); RDW Coefficient of Variation 14.3 % (11.5-14.5); Red Blood Count 4.33 M/uL (4.7-6.1); White Blood Count 20.11 K/uL (4.8-10.8)
[2021-02-18 06:43] LABS: Albumin Level 1.8 gm/dl (3.4-5.0); BUN Creatinine Ratio 21.8 (10-20); Calcium 7.8 mg/dl (8.5-10.1); Creatinine Clr Calc Pharmacy 23.1 ml/min; Est GFR (African American) 25.7 ml/min; Est GFR (Non-African American) 22.2 ml/min; Potassium 4.3 mmol/L (3.5-5.1)
[2021-02-18 06:54] LABS: Albumin Globulin Ratio 0.5 (0.9-2); Bilirubin,Total 1.4 mg/dl (0.2-1); Globulin 3.9 gm/dl (2.5-4.0); Total Protein 5.7 gm/dl (6.4-8.2)
[2021-02-18] MEDS: FINASTERIDE 5 MG TAB PO SCH (07:44)
[2021-02-18] MEDS: CEROVITE ADV FORMULA TAB PO SCH (07:44)
[2021-02-18] MEDS: SPIRONOLACTONE 25 MG TAB PO SCH (07:44)
--- NOTE | 2021-02-18 09:38 | Nephrology Consultation ---
Date of Consultation February 18, 2021 Assessment & Plan (1) NATE (acute kidney injury): Acute kidney injury on CKD. Likely secondary to Volume overload, on the background of UTI/pyelonephritis/karla stolic heart failure/HUDSON He is net positive around 3.5 L. D/C fluids Start on furosemide 40 mg IV Bid This can be titrated as per response and renal functions. Need to speak to radiologist regarding the USS finding not mentioned in the CT abdomen, further imaging may be needed. In light of the news l2 Compression fracture, Recommends ortho review AND myeloma screen, bladder scan , if residual>200 foleys, Repeat U/A after the completing the course of anti biotics with Protenuria quantification and screen (2) Urothelial carcinoma of bladder: Patient states this is in remission Recommend Urology review (3) Cholelithiasis: History of Present Illness Reason for Consultation: NATE on CKD Attending Physician: Felicia Vázquez MD History of Present Illness 89-year-old man with significant past medical history of urothelial carcinoma ongoing BCG treatment denies recurrence, atrial fibrillation not on anticoagulation, hypertension, history of CHF with preserved ejection fraction, colon cancer post surgery prostatic hypertrophy s/p TURP who was admitted to the ER with around 2 weeks history of lower quadrant abdominal pain discomfort associated with nausea anorexia and weakness U/A was significant for infection with raised white cell count and he was started on antibiotics with IV fluids. On admission his BUN by creatinine was 38/1.65, has risen over the last 48 hours to 54/2.94. UA was positive for blood and protein and urobilinogen. Ultrasound scan of the kidney shows almost normal-sized kidneys with 8 mm hyperechoic lesion on the left side with bladder thickening, however CT scan done subsequently does not comment on this 82 also showed early cirrhosis with cholelithiasis without cholecystitis with pleural effusion, new L2 compression fracture. On review today. Comfortable, complained of ongoing abdominal pain but no nausea vomiting, urine output has been borderline, is net positive by more than 3 L as per records.,He has been on the 20 mg of furosemide with 40 lisinopril at home which was stopped during this admission. Allergies Allergy/AdvReac Type Severity Reaction Status Date / Time No Known Allergies Allergy Unknown Verified 02/16/21 16:19 Home Medications Medication Instructions Recorded Confirmed Type PreserVision AREDS 1 tab PO BID 09/14/19 02/16/21 History amlodipine 5 mg PO QPM 09/14/19 02/16/21 History lisinopril 40 mg PO QAM 09/14/19 02/16/21 History metoprolol succinate 100 mg PO QPM 09/14/19 02/16/21 History multivitamin 1 tab PO QAM 09/14/19 02/16/21 History finasteride [Proscar] 5 mg PO QAM 30 Days #30 tab 09/19/19 02/16/21 Rx tamsulosin 0.4 mg PO HS 30 Days #30 cap 09/19/19 02/16/21 Rx aspirin 81 mg tablet,delayed 81 mg PO HS 09/30/19 02/16/21 History release furosemide [Lasix] 20 mg PO QAM 10/08/19 02/16/21 History nitrofurantoin 100 mg PO Q12H 10 Days #20 cap 12/06/20 02/16/21 Rx monohydrate/macrocrystals 100 mg capsule spironolactone 25 mg PO QAM 02/16/21 02/16/21 History Patient History Medical History (Updated 02/16/21 @ 20:06 by Jerson Francois MD) Abnormal CT scan of lung Asymptomatic hypertensive urgency Improved- BP 126/60 at cardio appt 10/07/19 Atrial fibrillation Bladder cancer Bladder mass BPH loc w urin obs/LUTS CHF (congestive heart failure) Clot retention of urine Colon cancer 2002 Diastolic heart failure Dyspnea Gross hematuria Hypertension Pleural effusion on right S/p thoracentesis - 1300ml during admission from 09/19/19- feels secondary to decompensated HF. Pneumonia age 18 Pulmonary hypertension Pulmonary nodule Followed by pulm - incidental finding Surgical History History of cataract extraction History of colonoscopy History of cystoscopy EVACUATION OF BLOOD CLOTS History of transurethral resection of prostate 10/19/19-transurethral resection bladder tumor with resection of bladder neck & prostate. S/P carpal tunnel release R/L S/P colon resection 2002 S/P TKR (total knee replacement) R/L S/P tonsillectomy Family History Family/Other Cancer Heart disease Mother , age 85 of stroke No problems noted. Father , age 69 Myocardial infarction Brother No problems noted. 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 Other Information That Helps Us Care for You: No Feels Safe at Home: Yes Safety Concerns: Feels Safe At This Time Childhood Exposure to Second-Hand Smoke: No caffeine: Yes (a few cups of coffee in the am) Assistive Devices: Walker Review of Systems Review of Systems: All systems reviewed & are unremarkable except as noted in HPI & below Positive for abdominal pain improved no nausea or vomiting Physical Exam Physical Exam: Constitutional: Comfortable, not in distress but + ill appearing and + obese Eyes: PERRL, conjunctivae normal, anicteric sclerae Neck: trachea midline, no thyromegaly Respiratory: no respiratory distress ,lungs clear to auscultation bilaterally Cardiovascular: Rate/Rhythm: + irregularly irregular Heart Sounds: + murmur (2/6 ESM over precordium) Extremities: + edema Abdomen: + abdomen distended and normal bowel sounds, generalized tenderness. [employer] Alert awake and oriented x3. No focal sensory or motor deficit appreciated Results & Data ([facility]) Vital Signs (Past 12 Hours) Vital Signs Temp Pulse Pulse Resp BP Pulse Ox 02/18/21 08:06 36.6 C 63 16 144/78 H 96 02/18/21 07:11 59 L 02/18/21 06:19 52 L 02/18/21 02:39 36.5 C 59 L 18 128/76 93 02/17/21 22:03 36.6 C 53 L 18 124/72 93 Laboratory Results 02/18/21 06:14 02/18/21 06:14 (1) Cholelithiasis Cholelithiasis location: gallbladder
[2021-02-18] MEDS ORDERED: FUROSEMIDE 40 MG in SYRINGE 0 ML IV ONE (11:15)
--- NOTE | 2021-02-18 12:41 | Hospitalist Progress Note ---
Date of Service February 18, 2021 Assessment & Plan (1) UTI (urinary tract infection): Presented with right lower quadrant discomfort, weakness and nausea Noted to have UA suggestive of UTI with increase white count Does not meet the sepsis criteria on admission Is started with intravenous Zosyn and will continue Urine culture is growing E. coli and is pansensitive except penicillin 1 out of 2 blood culture is growing gram-negative bacilli-further identification and sensitivity pending Clinically better but white count remains elevated Right lower quadrant discomfort CT scan documented to have possible appendicitis but had similar findings before Clinically Bustillos sign has been negative and symptomatically does not feel like a pain appendicitis Symptoms have been going on for 1 week Ultrasound of the liver did not show any acute cholecystitis Clinically much better Has lumbar vertebral compression fracture Without radiculopathy Given the history of urethral carcinoma with ongoing treatment to 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 We will get MRI of the lumbar spine (2) Acute pyelonephritis: May have acute pyelonephritis No tenderness in the renal angle and CT scan did not identify perinephritis (3) NATE (acute kidney injury): Noted to have increased BUN and creatinine Has NATE likely secondary to dehydration Worsening BUN and creatinine Ultrasound of the kidney did not show an obstruction Appreciate nephrology input and recommendation Could have multiple myeloma-appropriate tests have been sent (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 and has been ongoing BCG treatment Was told that there is no recurrence Ultrasound did show thickening of the posterior bladder wall We will ask for outpatient urology follow-up (5) Abnormal LFTs: Noted to have abnormal LFTs Has cholelithiasis without any evidence of cholecystitis We will get an ultrasound of the liver -did not show any acute cholecystitis We will get hepatitis profile-negative so far Liver functions have been improving (6) Atrial fibrillation: Heart rate is controlled Continue with current medication Not on any anticoagulation likely secondary to history of hematuria and bladder cancer (7) CHF (congestive heart failure): Does not have any fluid overload and/or symptomatic CHF (8) Pulmonary nodule: Has been followed up in the pulmonary clinic DVT prophylaxis Subcu heparin CODE STATUS Full Admission and Anticipated Discharge Date Admission Date: February 16, 2021 Subjective 02/17/2021 The patient was seen and examined in medical telemetry unit He has been feeling a lot better since admission Denies any abdominal pain and no fever and no chills 02/18/2021 The patient was seen and examined in medical telemetry unit He denies any complaints but his kidney function is getting worse His pain in the right upper quadrant is much better No fever and/or chills Review of Systems Review of Systems: All systems reviewed and are unremarkable except as noted below Gastrointestinal: + abdominal pain (Much improved) Physical Exam Physical Exam: Lying in bed comfortably Constitutional: well developed, well nourished, + ill appearing and + obese Eyes: PERRL, conjunctivae normal, anicteric sclerae ENMT: external ear and nose normal, oropharynx normal Neck: trachea midline, no thyromegaly Respiratory: no respiratory distress Auscultation: lungs clear to auscultation bilaterally Cardiovascular: Rate/Rhythm: + irregularly irregular Heart Sounds: + murmur (2/6 ESM over precordium) Extremities: + edema (Trace edema bilaterally) Gastrointestinal (Abdomen): Inspection/Auscultation: + abdomen distended and normal bowel sounds Percussion/Palpation: + abdomen tender (Mildly tender right lower quadrant, palpable large intestine, McBurney's -) and abdomen soft Musculoskeletal: No acute arthritis in any joint. Has lower lumbar tenderness without radiculopathy Psychiatric: A+Ox3, euthymic affect Lymphatic: no cervical or axillary lymphadenopathy Results & Data Results & Data ([facility]) Vital Signs (Past 12 Hours) Vital Signs Temp Pulse Pulse Resp BP Pulse Ox 02/18/21 11:52 36.7 C 64 16 144/76 H 94 02/18/21 08:06 36.6 C 63 16 144/78 H 96 02/18/21 07:11 59 L 02/18/21 06:19 52 L 02/18/21 02:39 36.5 C 59 L 18 128/76 93 Laboratory Results Short CBC 02/18/21 Range/Units 06:14 WBC 20.11 H (4.8-10.8) K/uL Hgb 13.6 L (14.0-18.0) g/dL Hct 41.0 L (42-52) % Plt Count 236 (130-400) K/uL BMP 02/18/21 06:14 Sodium 135 L Potassium 4.3 Chloride 102 Carbon Dioxide 26 BUN 54 H Creatinine 2.49 H D Glucose 95 Calcium 7.8 L Liver Function 02/18/21 Range/Units 06:14 Total Bilirubin 1.4 H (0.2-1) mg/dl AST 38 H (15-37) U/L ALT 56 (12-78) U/L Alkaline Phosphatase 136 H (45-117) U/L Albumin 1.8 L (3.4-5.0) gm/dl Short CBC 02/18/21 Range/Units 06:14 WBC 20.11 H (4.8-10.8) K/uL Hgb 13.6 L (14.0-18.0) g/dL Hct 41.0 L (42-52) % Plt Count 236 (130-400) K/uL BMP 02/18/21 06:14 Sodium 135 L Potassium 4.3 Chloride 102 Carbon Dioxide 26 BUN 54 H Creatinine 2.49 H D Glucose 95 Calcium 7.8 L Liver Function 02/18/21 Range/Units 06:14 Total Bilirubin 1.4 H (0.2-1) mg/dl AST 38 H (15-37) U/L ALT 56 (12-78) U/L Alkaline Phosphatase 136 H (45-117) U/L Albumin 1.8 L (3.4-5.0) gm/dl Medications Administered Current Inpatient Medications Amlodipine Besylate (Amlodipine Besylate 5 Mg Tab) 5 mg PO QPM [facility] Stop: 03/18/21 22:41 Last Admin: 02/17/21 21:02 Dose: 5 mg Documented by: Aspirin (Aspirin 81 Mg Ectab) 81 mg PO HS [facility] Stop: 03/18/21 22:41 Last Admin: 02/17/21 21:02 Dose: 81 mg Documented by: Finasteride (Finasteride 5 Mg Tab) 5 mg PO QAM [facility] Stop: 03/19/21 08:59 Last Admin: 02/18/21 07:44 Dose: 5 mg Documented by: Piperacillin Sod/Tazobactam (Sod 3.375 gm/ Dextrose) 115 mls @ 28.75 mls/hr IV Q8H [facility]; Protocol Stop: 02/27/21 00:00 Last Infusion: 02/18/21 11:41 Dose: Infused Documented by: Metoprolol Succinate (Metoprolol Succ 50mg Ext Rel Tab) 100 mg PO QPM [facility] Stop: 03/18/21 22:41 Last Admin: 02/17/21 21:04 Dose: Not Given Documented by: Miscellaneous Information (Piperacill/Tazobac Consult Active) 1 ea N/A UD PRN PRN Reason: Consult Stop: 03/18/21 19:11 Multivitamins/Minerals (Cerovite Adv Formula Tab) [facility] [place] Stop: 03/19/21 08:59 Last Admin: 02/18/21 07:44 Dose: 1 tab Documented by: Spironolactone (Spironolactone 25 Mg Tab) [facility] [place] Stop: 03/19/21 08:59 Last Admin: 02/18/21 07:44 Dose: 25 mg Documented by: Tamsulosin HCl (Tamsulosin Hcl 0.4 Mg Cap) 0.4 mg PO [facility] Stop: 03/18/21 22:41 Last Admin: 02/17/21 21:04 Dose: 0.4 mg Documented by:
[2021-02-18] MEDS: METOPROLOL SUCC 50MG EXT REL TAB PO SCH (22:37)
[2021-02-18] MEDS: amLODIPine BESYLATE 5 MG TAB PO SCH (22:39)
[2021-02-18] MEDS: TAMSULOSIN HCL 0.4 MG CAP PO SCH (22:41)
[2021-02-18] MEDS: ASPIRIN 81 MG ECTAB PO SCH (22:41)
[2021-02-19] MEDS: PIPERACILLIN/TAZOBACTAM 3.375 GM in DEXTROSE 5% 100 ML IV SCH ×2 (00:30→09:00)
[2021-02-19 05:46] LABS: Basophils # (auto) 0.01 K/uL (0-0.2); Basophils % (auto) 0.1 %; Eosinophils % (auto) 0.6 %; Hematocrit (blood only) 39.7 % (42-52); Hemoglobin 13.4 g/dL (14.0-18.0); Immature Granulocytes # (auto) 0.13 K/uL (0.00-0.02); Immature Granulocytes % (auto) 0.8 %; Lymphocytes # (auto) 0.66 K/uL (1.2-3.4); Lymphocytes % (auto) 4.1 %; Mean Corpuscular Hemoglobin 31.2 pg (25-34); Mean Corpuscular Hgb Conc 33.8 g/dL (32-36); Mean Corpuscular Volume 92.5 fL (80-100); Mean Platelet Volume 10.4 fL (7.4-10.4); Monocytes # (auto) 0.96 K/uL (0.11-0.59); Neutrophils # (auto) 14.24 K/uL (1.4-6.5); Neutrophils % (auto) 88.4 %; Platelet Count 250 K/uL (130-400); RDW Coefficient of Variation 14.3 % (11.5-14.5); RDW Standard Deviation 48.1 fL (36.4-46.3); Red Blood Count 4.29 M/uL (4.7-6.1)
[2021-02-19 06:17] LABS: Creatinine Clr Calc Pharmacy 20.5 ml/min; Est GFR (African American) 22.2 ml/min; Est GFR (Non-African American) 19.2 ml/min; Potassium 4.5 mmol/L (3.5-5.1)
[2021-02-19] MEDS: FINASTERIDE 5 MG TAB PO SCH (08:51)
[2021-02-19] MEDS: CEROVITE ADV FORMULA TAB PO SCH (08:51)
[2021-02-19] MEDS: SPIRONOLACTONE 25 MG TAB PO SCH (08:51)
[2021-02-19 10:22] LABS: Hepatitis B Surf Ag Rflx Conf Neg (Neg)
[2021-02-19 10:50] LABS: Hepatitis C IgG 13Yrs+Old_Rflx Neg (Neg)
--- NOTE | 2021-02-19 12:31 | Electrocardiogram Report ---
Test Reason : Blood Pressure : / mmHG Vent. Rate : 070 BPM Atrial Rate : 267 BPM P-R Int : 000 ms QRS Dur : 142 ms QT Int : 450 ms P-R-T Axes : 000 265 000 degrees QTc Int : 486 ms Atrial fibrillation Right bundle branch block Inferior infarct , age undetermined Abnormal ECG When compared with ECG of 15-SEP-2019 01:19, No significant change was found Confirmed by Javier Darling ([id number]) on 02/19/2021 12:31:44 PM Referred By: REFERRED SELF Confirmed By:Javier Darling
--- NOTE | 2021-02-19 14:38 | Hospitalist Progress Note ---
Date of Service February 19, 2021 Assessment & Plan (1) UTI (urinary tract infection): Presented with right lower quadrant discomfort, weakness and nausea Noted to have UA suggestive of UTI with increase white count Does not meet the sepsis criteria on admission Is started with intravenous Zosyn and will continue Urine culture is growing E. coli and is pansensitive except penicillin 1 out of 2 blood culture is growing E. coli and seems to pansensitive except ampicillin Clinically better but white count remains elevated We will continue intravenous Zosyn for now Right lower quadrant discomfort CT scan documented to have possible appendicitis but had similar findings before Clinically Bustillos sign has been negative and symptomatically does not feel like a pain appendicitis Symptoms have been going on for 1 week Ultrasound of the liver did not show any acute cholecystitis Clinically much better-denies any more pain Has lumbar vertebral compression fracture Without radiculopathy Given the history of urethral carcinoma with ongoing treatment to 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 We will get MRI of the lumbar spine-patient refused to have the test and will not do it even with premedication Work-up for multiple myeloma has been ongoing (2) Acute pyelonephritis: May have acute pyelonephritis No tenderness in the renal angle and CT scan did not identify perinephritis (3) NATE (acute kidney injury): Noted to have increased BUN and creatinine Has NATE likely secondary to dehydration Worsening BUN and creatinine Ultrasound of the kidney did not show an obstruction Appreciate nephrology input and recommendation Could have multiple myeloma-appropriate tests have been sent BUN and creatinine are worse today-received 1 dose of intravenous Lasix yesterday and IV fluid was stopped (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 and has been ongoing BCG treatment Was told that there is no recurrence Ultrasound did show thickening of the posterior bladder wall We will ask for outpatient urology follow-up (5) Abnormal LFTs: Noted to have abnormal LFTs Has cholelithiasis without any evidence of cholecystitis We will get an ultrasound of the liver -did not show any acute cholecystitis We will get hepatitis profile-negative so far Liver functions have been improving and is almost normalized (6) Atrial fibrillation: Heart rate is controlled Continue with current medication Not on any anticoagulation likely secondary to history of hematuria and bladder cancer (7) CHF (congestive heart failure): Does not have any fluid overload and/or symptomatic CHF (8) Pulmonary nodule: Has been followed up in the pulmonary clinic DVT prophylaxis Subcu heparin CODE STATUS Full Admission and Anticipated Discharge Date Admission Date: February 16, 2021 Subjective 02/17/2021 The patient was seen and examined in medical telemetry unit He has been feeling a lot better since admission Denies any abdominal pain and no fever and no chills 02/18/2021 The patient was seen and examined in medical telemetry unit He denies any complaints but his kidney function is getting worse His pain in the right upper quadrant is much better No fever and/or chills 02/19/2021 The patient was seen and examined in medical telemetry unit He has been stable and denies any pain today He again did not want to pursue MRI for the lumbar spinal vertebral fracture He denies any radiculopathic pain and does not have any problem with urine and her bowel habit Review of Systems Review of Systems: All systems reviewed and are unremarkable except as noted below Gastrointestinal: no abdominal pain (Much improved) Physical Exam Physical Exam: Lying in bed comfortably Constitutional: well developed, well nourished, + ill appearing and + obese Eyes: PERRL, conjunctivae normal, anicteric sclerae ENMT: external ear and nose normal, oropharynx normal Neck: trachea midline, no thyromegaly Respiratory: no respiratory distress Auscultation: lungs clear to auscultation bilaterally Cardiovascular: Rate/Rhythm: + irregularly irregular Heart Sounds: + murmur (2/6 ESM over precordium) Extremities: + edema (Trace edema bilaterally) Gastrointestinal (Abdomen): Inspection/Auscultation: + abdomen distended and normal bowel sounds Percussion/Palpation: + abdomen tender (Mildly tender right lower quadrant, palpable large intestine, McBurney's -) and abdomen soft Musculoskeletal: No acute arthritis in any joint Neurologic: Alert, awake and oriented x3. No focal sensory and motor deficit appreciated Psychiatric: A+Ox3, euthymic affect Lymphatic: no cervical or axillary lymphadenopathy Results & Data Results & Data ([facility]) Vital Signs (Past 12 Hours) Vital Signs Temp Pulse Pulse Resp BP Pulse Ox 02/19/21 07:35 36.6 C 56 L 18 128/66 95 02/19/21 07:00 56 L 02/19/21 05:09 57 L 02/19/21 02:51 36.8 C 57 L 16 114/63 96 Laboratory Results Short CBC 06/28/21 Range/Units 05:35 WBC 16.10 H (4.8-10.8) K/uL Hgb 13.4 L (14.0-18.0) g/dL Hct 39.7 L (42-52) % Plt Count 250 (130-400) K/uL BMP 02/19/21 05:35 Sodium 133 L Potassium 4.5 Chloride 100 Carbon Dioxide 28 BUN 59 H Creatinine 2.81 H D Glucose 105 H Calcium 8.0 L Medications Administered Current Inpatient Medications Amlodipine Besylate (Amlodipine Besylate 5 Mg Tab) 5 mg PO QPM [facility] Stop: 03/18/21 22:41 Last Admin: 02/18/21 22:39 Dose: 5 mg Documented by: Aspirin (Aspirin 81 Mg Ectab) 81 mg PO [facility] Stop: 03/18/21 22:41 Last Admin: 02/18/21 22:41 Dose: 81 mg Documented by: Finasteride ([facility] 5 Mg Tab) [facility] [place]: 03/19/21 08:59 Last Admin: 02/19/21 08:51 Dose: 5 mg Documented by: Heparin Sodium (Porcine) (Heparin Sod 5,000 Unit/0.5 Ml Vial) 5,000 units SQ Q12 [facility] Stop: 03/21/21 20:59 Ceftriaxone Sodium 2,000 mg/ (Dextrose) 70 mls @ 140 mls/hr IV DAILY@1600 [facility] Stop: 03/01/21 15:59 Metoprolol Succinate (Metoprolol Succ 50mg Ext Rel Tab) 100 mg PO QPM [facility] Stop: 03/18/21 22:41 Last Admin: 02/18/21 22:37 Dose: 100 mg Documented by: Multivitamins/Minerals (Cerovite Adv Formula Tab) 1 tab PO QA [facility] Stop: 03/19/21 08:59 Last Admin: 02/19/21 08:51 Dose: 1 tab Documented by: Spironolactone (Spironolactone 25 Mg Tab) [facility] [place]: 03/19/21 08:59 Last Admin: 02/19/21 08:51 Dose: 25 mg Documented by: Tamsulosin HCl (Tamsulosin Hcl 0.4 Mg Cap) 0.4 mg PO [facility] Stop: 03/18/21 22:41 Last Admin: 02/18/21 22:41 Dose: 0.4 mg Documented by:
[2021-02-19] MEDS: cefTRIAXone SODIUM 2,000 MG in DEXTROSE 5% 50 ML IV SCH (17:09)
--- NOTE | 2021-02-19 20:18 | Nephrology Progress Note ---
Date of Service February 19, 2021 Assessment & Plan (1) NATE (acute kidney injury): Acute kidney injury on CKD. attributed at first to Volume overload, on the background of UTI/pyelonephritis/diastolic heart failure/HUDSON > however renal failure worsened w/ one dose of lasix, now appropriately on hold still quite positive overall in terms of fluid balance but several unemeasured voids as well -daily bmp -continue to follow on zosyn for UTI In light of the news L2 Compression fracture, Recommends ortho review AND myeloma screen, bladder scan , if residual>200 foleys, Repeat U/A after the completing the course of anti biotics for Proteinuria quantification and screen (2) Urothelial carcinoma of bladder: Patient states this is in remission Recommend Urology review (3) Cholelithiasis: Admission and Anticipated Discharge Date Admission Date: February 16, 2021 Subjective tired when I evaluated him early evening today; denies sob; ongoing generalized weakness Review of Systems Review of Systems: All systems reviewed & are unremarkable except as noted in Subjective Physical Exam Constitutional: well developed, well nourished, + frail appearing and comfortable; no acute distress Eyes: EOM intact bilaterally ENMT: Ears: no external ear abnormality Nose: no external nose abnormality Mouth: + dry oral mucous membranes Neck: no nuchal rigidity Respiratory: normal respiratory effort (on RA) Auscultation: + diminished lung sounds and + crackles (L base) Cardiovascular: Rate/Rhythm: regular rate and regular rhythm Extremities: + edema (trace BLe at most) Gastrointestinal (Abdomen): Inspection/Auscultation: normal bowel sounds Percussion/Palpation: abdomen soft; abdomen nontender Musculoskeletal: Extremities: strength 5/5 throughout Skin: no rashes, warm and dry Neurologic: cancino but generalized weakness, fluent but limited speech, no tremor Results & Data ([facility]) Vital Signs (Past 12 Hours) Vital Signs Temp Pulse Pulse Resp BP BP Pulse Ox 02/19/21 19:20 37.2 C 65 18 149/75 H 93 02/19/21 15:16 36.7 C 60 18 144/62 H 95 02/19/21 15:00 61 Laboratory Results 02/19/21 05:35 02/19/21 05:35 (1) Cholelithiasis Cholelithiasis location: gallbladder
[2021-02-19] MEDS: TAMSULOSIN HCL 0.4 MG CAP PO SCH (20:38)
[2021-02-19] MEDS: METOPROLOL SUCC 50MG EXT REL TAB PO SCH (20:39)
[2021-02-19] MEDS: amLODIPine BESYLATE 5 MG TAB PO SCH (20:39)
[2021-02-19] MEDS: ASPIRIN 81 MG ECTAB PO SCH (20:39)
[2021-02-19] MEDS: HEPARIN SOD 5,000 UNIT/0.5 ML VIAL SQ SCH (20:40)
[2021-02-20 07:15] LABS: Hematocrit (blood only) 40.3 % (42-52); Hemoglobin 13.3 g/dL (14.0-18.0); Mean Corpuscular Hemoglobin 31.3 pg (25-34); Mean Corpuscular Volume 94.8 fL (80-100); Mean Platelet Volume 10.5 fL (7.4-10.4); Platelet Count 304 K/uL (130-400); RDW Coefficient of Variation 14.3 % (11.5-14.5); RDW Standard Deviation 49.3 fL (36.4-46.3); Red Blood Count 4.25 M/uL (4.7-6.1); White Blood Count 14.62 K/uL (4.8-10.8)
[2021-02-20 07:44] LABS: BUN Creatinine Ratio 23.2 (10-20); Calcium 8.1 mg/dl (8.5-10.1); Creatinine Clr Calc Pharmacy 22.2 ml/min; Est GFR (African American) 24.5 ml/min; Est GFR (Non-African American) 21.2 ml/min; Potassium 4.5 mmol/L (3.5-5.1)
[2021-02-20] MEDS: HEPARIN SOD 5,000 UNIT/0.5 ML VIAL SQ SCH ×2 (08:15→20:49)
[2021-02-20] MEDS: SPIRONOLACTONE 25 MG TAB PO SCH (08:15)
[2021-02-20] MEDS: FINASTERIDE 5 MG TAB PO SCH (08:15)
[2021-02-20] MEDS: CEROVITE ADV FORMULA TAB PO SCH (08:15)
--- NOTE | 2021-02-20 09:49 | CT Scan Report ---
CT SCAN OF THE LUMBAR SPINE WITHOUT IV CONTRAST CLINICAL HISTORY: Lumbar compression fracture. COMPARISON STUDY: Abdominal CT dated 02/16/2021 and 09/14/2019. TECHNIQUE: CT scan of the lumbar spine is performed from the lower thoracic spine to the sacrum. Imag es are reviewed in the axial, sagittal, and coronal planes. IV contrast was not administered for this examination. A dose lowering technique was utilized adhering to the principles of ALARA. CT DOSE: 1724.95 mGy.cm FINDINGS: The skeletal structures are osteopenic. There is an age indeterminant superior endplate com pression deformity of L2 with mild to moderate loss of height. There are minimally retropulsed fragme nts and this is new from 09/14/2019. Vertebral body height is otherwise maintained throughout the lumb ar spine. Alignment is preserved. Anterior and lateral marginal osteophytes are seen throughout. The transverse and spinous processes are intact. There is no spondylolysis. Moderate to advanced facet ar thropathy is noted in the lower lumbar region. There is mild multilevel degenerative disc space narro wing throughout the lumbar spine. Central canal stenosis is suggested at L3-L4 and L4-L5. The visuali zed sacrum and bony pelvis appear intact. Degenerative change is noted in the sacroiliac joints. Ther e is fatty atrophy of the paraspinous musculature. Advanced atherosclerotic change is seen throughout the abdominal aorta. Pleural effusions are partially imaged. There is no retroperitoneal lymphadenop athy. Postoperative change is partially visualized in the sigmoid colon. IMPRESSION: 1. There is unchanged appearance of an age indeterminant superior endplate compression deformity of L 2 as compared to 02/16/2021. This is new as compared to the 09/14/2019 examination. Correlate for point tenderness. 2. No additional findings are concerning for fracture. 3. Osteopenia and spondylotic change as above ACT 112: Negative or not required by law. Dictated: 02/20/2021 9:08 AM Transcribed: 02/20/2021 9:20 AM Carmita [id number] [email or web address] Electronically signed by: Manuel Veronica M.D. 02/20/2021 9:47 AM
--- NOTE | 2021-02-20 11:40 | Hospitalist Progress Note ---
Date of Service February 20, 2021 Assessment & Plan (1) UTI (urinary tract infection): Presented with right lower quadrant discomfort, weakness and nausea Noted to have UA suggestive of UTI with increase white count Does not meet the sepsis criteria on admission Is started with intravenous Zosyn and will continue Urine culture is growing E. coli and is pansensitive except penicillin 1 out of 2 blood culture is growing E. coli and seems to pansensitive except ampicillin Clinically better but white count remains elevated We will continue intravenous Zosyn for now with possible oral transformation to Augmentin and/or 1 of cephalosporins No more signs and or symptoms of infection Right lower quadrant discomfort CT scan documented to have possible appendicitis but had similar findings before Clinically Bustillos sign has been negative and symptomatically does not feel like a pain appendicitis Symptoms have been going on for 1 week Ultrasound of the liver did not show any acute cholecystitis Clinically much better-denies any more pain Has lumbar vertebral compression fracture Without radiculopathy Given the history of urethral carcinoma with ongoing treatment to 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 We will get MRI of the lumbar spine-patient refused to have the test and will not do it even with premedication Work-up for multiple myeloma has been ongoing CT scan of the lumbar spine showed an age indeterminate determinant superior endplate compression deformity of L2 Ortho has been consulted (2) Acute pyelonephritis: May have acute pyelonephritis No tenderness in the renal angle and CT scan did not identify perinephritis (3) NATE (acute kidney injury): Noted to have increased BUN and creatinine Has NATE likely secondary to dehydration Worsening BUN and creatinine Ultrasound of the kidney did not show an obstruction Appreciate nephrology input and recommendation Could have multiple myeloma-appropriate tests have been sent BUN and creatinine are worse today-received 1 dose of intravenous Lasix yeste rday and IV fluid was stopped Lasix has been on hold and the creatinine seems to be little better today (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 and has been ongoing BCG treatment Was told that there is no recurrence Ultrasound did show thickening of the posterior bladder wall We will ask for outpatient urology follow-up (5) Abnormal LFTs: Noted to have abnormal LFTs Has cholelithiasis without any evidence of cholecystitis We will get an ultrasound of the liver -did not show any acute cholecystitis We will get hepatitis profile-negative Liver functions have been improving and is almost normalized (6) Atrial fibrillation: Heart rate is controlled Continue with current medication Not on any anticoagulation likely secondary to history of hematuria and bladder cancer (7) CHF (congestive heart failure): Does not have any fluid overload and/or symptomatic CHF (8) Pulmonary nodule: Has been followed up in the pulmonary clinic DVT prophylaxis Subcu heparin CODE STATUS Full Admission and Anticipated Discharge Date Admission Date: February 16, 2021 Subjective 02/17/2021 The patient was seen and examined in medical telemetry unit He has been feeling a lot better since admission Denies any abdominal pain and no fever and no chills 02/18/2021 The patient was seen and examined in medical telemetry unit He denies any complaints but his kidney function is getting worse His pain in the right upper quadrant is much better No fever and/or chills 02/19/2021 The patient was seen and examined in medical telemetry unit He has been stable and denies any pain today He again did not want to pursue MRI for the lumbar spinal vertebral fracture He denies any radiculopathic pain and does not have any problem with urine and her bowel habit 02/20/2021 The patient was seen and examined in medical telemetry unit He has been feeling a lot better today Minimal pain at the back and denies any pain in the abdomen We will get PT and OT evaluation Review of Systems Review of Systems: All systems reviewed and are unremarkable except as noted below Musculoskeletal: + back pain (Minimal back pain without radiation) Physical Exam Physical Exam: Lying in bed comfortably Constitutional: well developed, well nourished and + obese; not ill appearing Eyes: PERRL, conjunctivae normal, anicteric sclerae ENMT: external ear and nose normal, oropharynx normal Neck: trachea midline, no thyromegaly Respiratory: no respiratory distress Auscultation: lungs clear to auscultation bilaterally Cardiovascular: Rate/Rhythm: + irregularly irregular Heart Sounds: + murmur (2/6 ESM over precordium) Extremities: + edema (Trace edema bilaterally) Gastrointestinal (Abdomen): Inspection/Auscultation: + abdomen distended and normal bowel sounds Percussion/Palpation: abdomen soft; abdomen nontender (Mildly tender right lower quadrant, palpable large intestine, McBurney's -) Musculoskeletal: No acute arthritis in any joint Neurologic: Alert, awake and oriented x3. No focal sensory and motor deficit appreciated Psychiatric: A+Ox3, euthymic affect Lymphatic: no cervical or axillary lymphadenopathy Results & Data Results & Data ([facility]) Vital Signs (Past 12 Hours) Vital Signs Temp Pulse Pulse Resp BP Pulse Ox 02/20/21 11:19 36.3 C L 55 L 20 136/70 94 02/20/21 07:00 36.5 C 50 L 54 L 18 132/71 93 02/20/21 03:54 36.8 C 56 L 18 126/70 90 02/20/21 01:40 59 L Laboratory Results Short CBC 02/20/21 Range/Units 06:48 WBC 14.62 H (4.8-10.8) K/uL Hgb 13.3 L (14.0-18.0) g/dL Hct 40.3 L (42-52) % Plt Count 304 (130-400) K/uL BMP 02/20/21 06:48 Sodium 132 L Potassium 4.5 Chloride 100 Carbon Dioxide 27 BUN 60 H Creatinine 2.59 H Glucose 107 H Calcium 8.1 L Medications Administered Current Inpatient Medications Amlodipine Besylate (Amlodipine Besylate 5 Mg Tab) 5 mg PO QPM LEONOR Stop: 03/18/21 22:41 Last Admin: 02/19/21 20:39 Dose: 5 mg Documented by: Aspirin (Aspirin 81 Mg Ectab) 81 mg PO HS LEONOR Stop: 03/18/21 22:41 Last Admin: 02/19/21 20:39 Dose: 81 mg Documented by: Finasteride (Finasteride 5 Mg Tab) 5 mg PO QAM LEONOR Stop: 03/19/21 08:59 Last Admin: 02/20/21 08:15 Dose: 5 mg Documented by: Heparin Sodium (Porcine) (Heparin Sod 5,000 Unit/0.5 Ml Vial) 5,000 units SQ Q12 LEONOR Stop: 03/21/21 20:59 Last Admin: 02/20/21 08:15 Dose: 5,000 units Documented by: Ceftriaxone Sodium 2,000 mg/ (Dextrose) 70 mls @ 140 mls/hr IV DAILY@1600 LEONOR Stop: 03/01/21 15:59 Last Infusion: 02/19/21 17:50 Dose: Infused Documented by: Metoprolol Succinate (Metoprolol Succ 50mg Ext Rel Tab) 100 mg PO QPM LEONOR Stop: 03/18/21 22:41 Last Admin: 02/19/21 20:39 Dose: 100 mg Documented by: Multivitamins/Minerals (Cerovite Adv Formula Tab) [facility] [place] Stop: 03/19/21 08:59 Last Admin: 02/20/21 08:15 Dose: 1 tab Documented by: Spironolactone (Spironolactone 25 Mg Tab) [facility] [place] Stop: 03/19/21 08:59 Last Admin: 02/20/21 08:15 Dose: 25 mg Documented by: Tamsulosin HCl (Tamsulosin Hcl 0.4 Mg Cap) 0.4 mg PO [facility] Stop: 03/18/21 22:41 Last Admin: 02/19/21 20:38 Dose: 0.4 mg Documented by:
[2021-02-20] MEDS: cefTRIAXone SODIUM 2,000 MG in DEXTROSE 5% 50 ML IV SCH (15:36)
--- NOTE | 2021-02-20 17:00 | Nephrology Progress Note ---
Date of Service February 20, 2021 Assessment & Plan (1) NATE (acute kidney injury): Acute kidney injury on CKD. unknown baseline creatinine (in [employer]) -- was 1.7 on presentation 02/16, peak at 2.8 on 02/19; down to 2.6 today attributed at first to Volume overload, on the background of UTI/pyelo nephritis/diastolic heart failure/HUDSON > however renal failure worsened w/ one dose of lasix, now appropriately on hold still quite positive overall in terms of fluid balance but several unemeasured voids as well; now w/ tsang -daily bmp -continue to follow on zosyn for UTI In light of the news L2 Compression fracture>> f/u ortho recs AND myeloma screen Repeat U/A after the completing the course of anti biotics for Proteinuria quantification and screen (2) Urothelial carcinoma of bladder: Patient states this is in remission after BCG tx w/ u/s showing bladder wall thickening > for OP urology f/u Admission and Anticipated Discharge Date Admission Date: February 16, 2021 Subjective no overnight events. denies sob, uncontrolled pain, n/v, abd pain. Review of Systems Review of Systems: All systems reviewed & are unremarkable except as noted in Subjective Physical Exam Constitutional: well developed, well nourished, + frail appearing and comfortable; no acute distress Eyes: EOM intact bilaterally ENMT: Ears: no external ear abnormality Nose: no external nose abnormality Mouth: + dry oral mucous membranes Neck: no nuchal rigidity Respiratory: normal respiratory effort (on RA) Auscultation: + diminished lung sounds (markedly) Cardiovascular: Rate/Rhythm: regular rate and regular rhythm Extremities: + edema (trace-1+ BE) Gastrointestinal (Abdomen): Inspection/Auscultation: normal bowel sounds Percussion/Palpation: abdomen soft; abdomen nontender Musculoskeletal: Extremities: strength 5/5 throughout Skin: no rashes, warm and dry Genitourinary: tsang w/ clear light urine Results & Data ([facility]) Vital Signs (Past 12 Hours) Vital Signs Temp Pulse Pulse Resp BP BP Pulse Ox 02/20/21 15:56 36.6 C 52 L 20 150/66 H 94 02/20/21 14:21 56 L 02/20/21 11:19 36.3 C L 55 L 20 136/70 94 02/20/21 07:00 36.5 C 50 L 54 L 18 132/71 93 Laboratory Results 02/20/21 06:48 02/20/21 06:48
[2021-02-20] MEDS: DICLOFENAC SOD 1% GEL 100 GM TUBE EXT SCH ×2 (17:02→20:50)
[2021-02-20] MEDS: METOPROLOL SUCC 25MG EXT REL TAB PO SCH (20:48)
[2021-02-20] MEDS: amLODIPine BESYLATE 5 MG TAB PO SCH (20:49)
[2021-02-20] MEDS: TAMSULOSIN HCL 0.4 MG CAP PO SCH (20:50)
[2021-02-20] MEDS: ASPIRIN 81 MG ECTAB PO SCH (20:50)
[2021-02-21 08:23] LABS: BUN Creatinine Ratio 25.3 (10-20); Calcium 8.3 mg/dl (8.5-10.1); Creatinine Clr Calc Pharmacy 22.9 ml/min; Est GFR (African American) 27.7 ml/min; Est GFR (Non-African American) 23.9 ml/min; Potassium 4.9 mmol/L (3.5-5.1)
[2021-02-21] MEDS: SPIRONOLACTONE 25 MG TAB PO SCH (08:48)
[2021-02-21] MEDS: HEPARIN SOD 5,000 UNIT/0.5 ML VIAL SQ SCH ×2 (08:48→22:11)
[2021-02-21] MEDS: FINASTERIDE 5 MG TAB PO SCH (08:48)
[2021-02-21] MEDS: CEROVITE ADV FORMULA TAB PO SCH (08:49)
[2021-02-21] MEDS: DICLOFENAC SOD 1% GEL 100 GM TUBE EXT SCH ×4 (08:49→22:18)
--- NOTE | 2021-02-21 10:19 | Consultation ---
Date of Consultation February 21, 2021 Assessment & Plan (1) Fracture, lumbar vertebra, compression: This case has been reviewed with Dr. Contreras. Pt has chronic, unchanged LBP. THis, in correlation with his CT scan represents a chronic compression fracture of L2 most likely. No further treatment needed/ recommended other than what comfort permits. Ambulate ad batsheva. I suggested an MRI of lumbar spine to assess acuity of fracture. Pt is declining due to severe claustraphobia. Supervising Physician Co-Signing Physician Notes Dr. Jorge Contreras History of Present Illness This is an 89yo gentleman that we were asked to see in consultation regarding an L2 compression fracture. Pt states he's had chronic low back pain for several months. He denies any specific fall. He also denies radicular leg pain. He notes numbness that is established in both feel. He typically ambulates with a walker at home. THis is not his primary complaint for admission. He does have bladder cancer. Currently also being treated for complicated UTI and pyelonephritis, Attending Physician: Adriana Morales, Allergies Allergy/AdvReac Type Severity Reaction Status Date / Time No Known Allergies Allergy Unknown Verified 02/16/21 16:19 Home Medications Medication Instructions Recorded Confirmed Type PreserVision AREDS 1 tab PO BID 09/14/19 02/16/21 History amlodipine 5 mg PO QPM 09/14/19 02/16/21 History lisinopril 40 mg PO QAM 09/14/19 02/16/21 History metoprolol succinate 100 mg PO QPM 09/14/19 02/16/21 History multivitamin 1 tab PO QAM 09/14/19 02/16/21 History finasteride [Proscar] 5 mg PO QAM 30 Days #30 tab 09/19/19 02/16/21 Rx tamsulosin 0.4 mg PO HS 30 Days #30 cap 09/19/19 02/16/21 Rx aspirin 81 mg tablet,delayed 81 mg PO HS 09/30/19 02/16/21 History release furosemide [Lasix] 20 mg PO QAM 10/08/19 02/16/21 History nitrofurantoin 100 mg PO Q12H 10 Days #20 cap 12/06/20 02/16/21 Rx monohydrate/macrocrystals 100 mg capsule spironolactone 25 mg PO QAM 02/16/21 02/16/21 History Patient History Medical History Abnormal CT scan of lung Asymptomatic hypertensive urgency Improved- BP 126/60 at cardio appt 10/07/19 Atrial fibrillation Bladder cancer Bladder mass BPH loc w urin obs/LUTS CHF (congestive heart failure) Clot retention of urine Colon cancer 2002 Diastolic heart failure Dyspnea Gross hematuria Hypertension Pleural effusion on right S/p thoracentesis - 1300ml during admission from 09/19/19- feels secondary to decompensated HF. Pneumonia age 18 Pulmonary hypertension Pulmonary nodule Followed by pulm - incidental finding Surgical History History of cataract extraction History of colonoscopy History of cystoscopy EVACUATION OF BLOOD CLOTS History of transurethral resection of prostate 10/19/19-transurethral resection bladder tumor with resection of bladder neck & prostate. S/P carpal tunnel release R/L S/P colon resection 2002 S/P TKR (total knee replacement) R/L S/P tonsillectomy Family History Family/Other Cancer Heart disease Mother , age 85 of stroke No problems noted. Father , age 69 Myocardial infarction Brother No problems noted. 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 Strength 5/5 b/l lower extremities Results & Data ([facility]) Vital Signs (Past 12 Hours) Vital Signs Temp Pulse Pulse Resp BP Pulse Ox 02/21/21 08:01 36.4 C L 56 L 18 137/72 94 02/21/21 07:00 49 L 02/21/21 03:27 36.4 C L 59 L 18 172/79 H 92 02/20/21 22:50 36.7 C 54 L 18 126/67 93 Diagnostic Findings [facility], [id number] CT Scan Report Patient: MILADYS VILCHIS Date: 02/16/21#: [id number]: [id number] [facility] ID:[id number]: Date: 1930[facility] Zip: [id number]: [id number]: 2NSex: MRoom/Bed: [id number] Phy: Felicia Vázquez MDDiagnosis: COMPLICATED UTI, AKIPri Phy: Nahun Escobar MDService Date: 02/20/21Fa Phy:Interpreting Phy: Manuel Veronica MDAdmit Phy: Felicia Vázquez MD Ordering Phy: Jorge Contreras D.O. cc: ~ CT SCAN OF THE LUMBAR SPINE WITHOUT IV CONTRAST CLINICAL HISTORY: Lumbar compression fracture. COMPARISON STUDY: Abdominal CT dated 02/16/2021 and 09/14/2019. TECHNIQUE: CT scan of the lumbar spine is performed from the lower thoracic spine to the sacrum. Images are reviewed in the axial, sagittal, and coronal planes. IV contrast was not administered for this examination. A dose lowering technique was utilized adhering to the principles of ALARA. CT DOSE: 1724.95 mGy.cm FINDINGS: The skeletal structures are osteopenic. There is an age indeterminant superior endplate compression deformity of L2 with mild to moderate loss of height. There are minimally retropulsed fragments and this is new from 09/14/2019. Vertebral body height is otherwise maintained throughout the lumbar spine. Alignment is preserved. Anterior and lateral marginal osteophytes are seen throughout. The transverse and spinous processes are intact. There is no spondylolysis. Moderate to advanced facet arthropathy is noted in the lower lumbar region. There is mild multilevel degenerative disc space narrowing throughout the lumbar spine. Central canal stenosis is suggested at L3-L4 and L4-L5. The visualized sacrum and bony pelvis appear intact. Degenerative change is noted in the sacroiliac joints. There is fatty atrophy of the paraspinous musculature. Advanced atherosclerotic change is seen throughout the abdominal aorta. Pleural effusions are partially imaged. There is no retroperitoneal lymphadenopathy. Postoperative change is partially visualized in the sigmoid colon. IMPRESSION: 1. There is unchanged appearance of an age indeterminant superior endplate compression deformity of L2 as compared to 02/16/2021. This is new as compared to the 09/14/2019 examination. Correlate for point tenderness. 2. No additional findings are concerning for fracture. 3. Osteopenia and spondylotic change as above ACT 112: Negative or not required by law. Dictated: 02/20/2021 9:08 AM Transcribed: 02/20/2021 9:20 AM Carmita [id number] [email or web address] Electronically signed by: Manuel Veronica M.D. 02/20/2021 9:47 AM Dictated: 02/20/21 0908Transcribed: 02/20/21 0920
[2021-02-21 10:47] LABS: Albumin 2.1 g/dL (3.8-4.8); Alpha 1 Globulin 0.5 g/dL (0.2-0.3); Alpha 2 Globulin 0.9 g/dL (0.5-0.9); Beta-1-Globulin 0.3 g/dL (0.4-0.6); Beta-2-Globulin 0.4 g/dL (0.2-0.5); Free Kappa 78.3 mg/L (3.3-19.4); Free Kappa/Lambda Ratio 0.28 (0.26-1.65); Free Lambda 278.7 mg/L (5.7-26.3); Gamma Globulin 0.9 g/dL (0.8-1.7); Monoclonal Protein Band 1 0.2 g/dL (NONE DETECTED); Monoclonal Protein Band 2 DNR g/dL (NONE DETECTED); Monoclonal Protein Band 3 DNR g/dL (NONE DETECTED)
[2021-02-21] MEDS: cefTRIAXone SODIUM 2,000 MG in DEXTROSE 5% 50 ML IV SCH (15:56)
--- NOTE | 2021-02-21 16:51 | Nephrology Progress Note ---
Date of Service February 21, 2021 Assessment & Plan (1) NATE (acute kidney injury): Acute kidney injury on CKD. unknown baseline creatinine (in [employer]) -- was 1.7 on presentation 02/16, peak at 2.8 on 02/19; down to 2.6 today attributed at first to Volume overload, on the background of UTI/pyelo nephritis/diastolic heart failure/HUDSON > however renal failure worsened w/ one dose of lasix which has been on hold w/ minimal improvement still quite positive overall in terms of fluid balance but several unmeasured voids as well -daily bmp -continue to follow on zosyn for UTI >>will give 10 mg IV lasix x1 and monitor vol status/labs In light of the news L2 Compression fracture>> f/u ortho recs AND myeloma screen Repeat U/A after the completing the course of anti biotics for Proteinuria quant ification and screen (2) Urothelial carcinoma of bladder: Patient states this is in remission after BCG tx w/ u/s showing bladder wall thickening > for OP urology f/u Admission and Anticipated Discharge Date Admission Date: February 16, 2021 Subjective seen on rounds at 1500; c/o swollen feet w/ numbness, worse w/ walking; no sob, no increased abd girth; no voiding concerns Review of Systems Review of Systems: All systems reviewed & are unremarkable except as noted in Subjective Physical Exam Constitutional: well developed, well nourished, + frail appearing and comfortable; no acute distress Eyes: EOM intact bilaterally ENMT: Ears: no external ear abnormality Nose: no external nose abnormality Mouth: + dry oral mucous membranes Neck: no nuchal rigidity Respiratory: normal respiratory effort (on RA) Auscultation: + diminished lung sounds (markedly) Cardiovascular: Rate/Rhythm: regular rate and regular rhythm Extremities: + edema (1+ BLE) Gastrointestinal (Abdomen): Inspection/Auscultation: normal bowel sounds Percussion/Palpation: abdomen soft; abdomen nontender Musculoskeletal: Extremities: strength 5/5 throughout Skin: no rashes, warm and dry Neurologic: cancino, fluent speech, no tremor Psychiatric: Orientation: oriented to person and oriented to place Speech: normal rate/rhythm/volume of speech Affect: euthymic affect Results & Data ([facility]) Vital Signs (Past 12 Hours) Vital Signs Temp Pulse Pulse Resp BP Pulse Ox 02/21/21 15:41 36.4 C L 58 L 18 177/74 H 96 02/21/21 14:20 55 L 02/21/21 12:46 158/66 H 02/21/21 12:22 36.8 C 61 20 175/71 H 98 02/21/21 08:01 36.4 C L 56 L 18 137/72 94 02/21/21 07:00 49 L Laboratory Results 02/20/21 06:48 02/21/21 07:28
[2021-02-21] MEDS ORDERED: FUROSEMIDE 10 MG in SYRINGE 0 ML IV ONE (17:30)
--- NOTE | 2021-02-21 19:39 | Hospitalist Progress Note ---
Date of Service February 21, 2021 Assessment & Plan (1) UTI (urinary tract infection): Was initially started on Zosyn, switched to Rocephin and continues on this now. Abdominal pain has improved per his report. Some residual weakness is present, likely a result of the infection. Cont with PT/OT. Close urology follow-up for his scheduled 3 month cystoscopy surveillance and maintenance BCG treatments as outpatient. (2) NATE (acute kidney injury): Nephro following. Etiology unclear with differential including but not limited to prerenal cause in settin gof infection, HUDSON. Initially thought to be overloaded and was given one dose Lasix with worsening renal function. Home Lasix on hold for now (20mg daily). Home lisinopril also held (40mg daily). Daily BMP (3) Fracture, lumbar vertebra, compression: Nontraumatic, patient has no pain. With h/o malignancy, metastatic disease causing fracture was questioned and MRI was offered to assess nature of fracture and acuity, but declined by patient secondary to claustrophobia. Ortho spine saw him and noted his back pain is chronic and unchanged with the film and clinical picture consistent with a chronic compression fracture of L2 most likely. 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 Lopez in Oct 2020. He continues to undergo q3 month cystoscopies and BCG maintenance therapy. Follow-up [facility] Urology as outpatient. (5) Abnormal LFTs: Noted to have abnormal LFTs Has cholelithiasis without any evidence of cholecystitis ultrasound of the liver -did not show any acute cholecystitis but did show changes suggestive of early cirrhosis-outpatient GI follow-up recommended. hepatitis profile-negative Liver functions have been [id number] as outpatient (6) PAD (peripheral artery disease): Extensive atherosclerotic arterial disease with a suspected high-grade stenosis of the infrarenal abdominal aorta is present. There are extensive atheromatous changes within the common femoral and superficial femoral arteries. Patient currently has significant numbness in his feet. Will consult vascular surgery to see if there are options for intervention here. (7) Atrial fibrillation: Heart rate is controlled Continue with metoprolol. Not on any anticoagulation likely secondary to history of hematuria and bladder cancer (8) CHF (congestive heart failure): Chronic, compensated. Off daily Lasix. Monitor daily weights. Low salt diet. (9) Pulmonary nodule: Followed by pulmonary clinic. (10) DVT prophylaxis: Heparin Full Code Dispo-uncertain at this time. Pending improvement of renal function and PT/OT recommendations. Adriana Morales DO [facility] Hospitalist Admission and Anticipated Discharge Date Admission Date: February 16, 2021 Subjective The patient is an 89-year-old man sent over from his doctor for evaluation of fever and abdominal pain that had been ongoing for 1 week. He has a prior history of colon cancer status post resection and a history of bladder cancer. On arrival white count was 22 and creatinine was elevated from baseline to 1.65. He has a normal baseline kidney function. He has known atrial fibrillation and an EKG on admission revealed no acute ischemic changes. A UTI was seen, blood cultures were ordered and he was given Zosyn. A CT of the abdomen and pelvis without contrast reports severe numbness in his feet bilaterally, cannot walk or stand easily. Has had numbness in the past but nothing this more severe. Tolerating PO, afebrile. Denies CP or SOB. Review of Systems Review of Systems: All systems reviewed & are unremarkable except as noted in Subjective Physical Exam Physical Exam: CONSTITUTIONAL: WNWD, vitals as above, generally well- appearing EYES: normal conjunctivae, no scleral icterus ENT: external ear and nose normal, MMM RESPIRATORY: clear to auscultation bilaterally, no crackles, rales or wheezes, normal respiratory effort CARDIOVASCULAR: regular rate and rhythm, S1 and 2 heard without murmurs, gallops or rubs, no JVD, no peripheral edema GASTROINTESTINAL: soft, nontender, nondistended MUSCULOSKELETAL: generalized weakness, moves all extremities equally, head is normocephalic and atraumatic SKIN: warm and dry NEUROLOGIC: CN 2-12 grossly intact, sensation deficit on bilateral plantar surface of feet, normal cognition, normal speech PSYCHIATRIC: alert cooperative and oriented to person, place and time. Results & Data Results & Data ([facility]) Vital Signs (Past 12 Hours) Vital Signs Temp Pulse Pulse Resp BP Pulse Ox 02/21/21 18:59 36.8 C 67 16 149/67 H 93 02/21/21 16:54 69 145/67 H 02/21/21 15:41 36.4 C L 58 L 18 177/74 H 96 02/21/21 14:20 55 L 02/21/21 12:46 158/66 H 02/21/21 12:22 36.8 C 61 20 175/71 H 98 02/21/21 08:01 36.4 C L 56 L 18 137/72 94 Laboratory Results [facility] 02/21/21 07:28 Sodium 135 L Potassium 4.9 Chloride 103 Carbon Dioxide 25 BUN 59 H Creatinine 2.34 H Glucose 94 Calcium 8.3 L Medications Administered Current Inpatient Medications Amlodipine Besylate (Amlodipine Besylate 5 Mg Tab) 5 mg PO QPM [facility] Stop: 03/18/21 22:41 Last Admin: 02/20/21 20:49 Dose: Not Given Documented by: Aspirin (Aspirin 81 Mg Ectab) 81 mg PO HS [facility] Stop: 03/18/21 22:41 Last Admin: 02/20/21 20:50 Dose: 81 mg Documented by: Diclofenac Sodium (Diclofenac Sod 1% Gel 100 Gm Tube) 2 gm EXT QID [facility] Stop: 03/22/21 16:59 Last Admin: 02/21/21 17:23 Dose: 2 gm Documented by: Finasteride (Finasteride 5 Mg Tab) 5 mg PO QAM [facility] Stop: 03/19/21 08:59 Last Admin: 02/21/21 08:48 Dose: 5 mg Documented by: Heparin Sodium (Porcine) (Heparin Sod 5,000 Unit/0.5 Ml Vial) 5,000 units SQ Q12 [facility] Stop: 03/21/21 20:59 Last Admin: 02/21/21 08:48 Dose: 5,000 units Documented by: Ceftriaxone Sodium 2,000 mg/ (Dextrose) 70 mls @ 140 mls/hr IV DAILY@1600 [facility] Stop: 03/01/21 15:59 Last Infusion: 02/21/21 16:26 Dose: Infused Documented by: Metoprolol Succinate (Metoprolol Succ 25mg Ext Rel Tab) 75 mg PO QPM [facility] Stop: 03/22/21 20:59 Last Admin: 02/20/21 20:48 Dose: Not Given Documented by: Multivitamins/Minerals (Cerovite Adv Formula Tab) 1 tab PO QAM [facility] Stop: 03/19/21 08:59 Last Admin: 02/21/21 08:49 Dose: 1 tab Documented by: Spironolactone (Spironolactone 25 Mg Tab) 25 mg PO QAM [facility] Stop: 03/19/21 08:59 Last Admin: 02/21/21 08:48 Dose: 25 mg Documented by: Tamsulosin HCl (Tamsulosin Hcl 0.4 Mg Cap) 0.4 mg PO [facility] Stop: 03/18/21 22:41 Last Admin: 02/20/21 20:50 Dose: 0.4 mg Documented by:
[2021-02-21] MEDS: METOPROLOL SUCC 25MG EXT REL TAB PO SCH (22:10)
[2021-02-21] MEDS: TAMSULOSIN HCL 0.4 MG CAP PO SCH (22:11)
[2021-02-21] MEDS: ASPIRIN 81 MG ECTAB PO SCH (22:12)
[2021-02-21] MEDS: amLODIPine BESYLATE 5 MG TAB PO SCH (22:13)
[2021-02-22 01:37] LABS: Basophils # (auto) 0.04 K/uL (0-0.2); Basophils % (auto) 0.3 %; Eosinophils # (auto) 0.14 K/uL (0-0.5); Eosinophils % (auto) 1.1 %; Hematocrit (blood only) 39.3 % (42-52); Hemoglobin 13.1 g/dL (14.0-18.0); Immature Granulocytes # (auto) 0.13 K/uL (0.00-0.02); Immature Granulocytes % (auto) 1.1 %; Lymphocytes # (auto) 0.51 K/uL (1.2-3.4); Lymphocytes % (auto) 4.2 %; Mean Corpuscular Hemoglobin 30.8 pg (25-34); Mean Corpuscular Hgb Conc 33.3 g/dL (32-36); Mean Corpuscular Volume 92.5 fL (80-100); Mean Platelet Volume 9.9 fL (7.4-10.4); Monocytes # (auto) 0.97 K/uL (0.11-0.59); Monocytes % (auto) 7.9 %; Neutrophils # (auto) 10.45 K/uL (1.4-6.5); Neutrophils % (auto) 85.4 %; Platelet Count 316 K/uL (130-400); RDW Standard Deviation 47.6 fL (36.4-46.3); Red Blood Count 4.25 M/uL (4.7-6.1); White Blood Count 12.24 K/uL (4.8-10.8)
[2021-02-22 02:04] LABS: BUN Creatinine Ratio 27.1 (10-20); Calcium 8.5 mg/dl (8.5-10.1); Creatinine Clr Calc Pharmacy 24.8 ml/min; Est GFR (African American) 30.6 ml/min; Est GFR (Non-African American) 26.4 ml/min; Magnesium 2.1 mg/dl (1.8-2.4); Potassium 5.3 mmol/L (3.5-5.1)
[2021-02-22 02:15] LABS: Thyroid Stimulating Hormone 8.02 uIu/ml (0.300-4.500)
[2021-02-22] MEDS ORDERED: ALBUMIN 25% 12.5 GM/50 ML VIAL IV ONE (02:29)
[2021-02-22 02:39] LABS: T4 Free Thyroxine 0.97 ng/dl (0.8-1.6)
[2021-02-22] MEDS ORDERED: DEXTROSE 50% 50 ML SYRINGE IV ONE (02:45)
[2021-02-22] MEDS ORDERED: INSULIN HUMAN REGULAR PER UNIT 5 UNITS in SYRINGE 4.95 ML IV ONE (02:45)
--- NOTE | 2021-02-22 05:55 | Communication Note ---
Date of Service: February 22, 2021 Made aware by RN around 12:50 AM of episodic bradycardic episodes. Cardiac rate 30s to 40s. Patient sleeping as per RN. Serum potassium 5.3 EKG as per my interpretation rate 55, slow A. fib, normal axis, RBBB, T wave abnormalities inferior leads AP Episodic bradycardia Likely related to current beta-bryant dose given baseline heart rate of 60 to 7 0s during confinement Hyperkalemia Will relay to AM provider. Decrease current Toprol-XL daily dosing of 75 mg to 25 mg. Regular insulin for hyperkalemia Appropriate to hold spironolactone for now. Recheck serum potassium level in a.m.
[2021-02-22] MEDS: HEPARIN SOD 5,000 UNIT/0.5 ML VIAL SQ SCH ×2 (08:42→20:41)
[2021-02-22] MEDS: FINASTERIDE 5 MG TAB PO SCH (08:42)
[2021-02-22] MEDS: DICLOFENAC SOD 1% GEL 100 GM TUBE EXT SCH ×4 (08:42→20:42)
[2021-02-22] MEDS: CEROVITE ADV FORMULA TAB PO SCH (08:42)
--- NOTE | 2021-02-22 11:06 | Nephrology Progress Note ---
Date of Service February 22, 2021 Assessment & Plan (1) NATE (acute kidney injury): Acute kidney injury on CKD. unknown baseline creatinine (in [facility]) -- was 1.7 on presentation 02/16, peak at 2.8 on 02/19; down to 2.2 today attributed at first to Volume overload, on the background of UTI/pyelon ephritis/diastolic heart failure/HUDSON > however renal failure worsened w/ one dose of lasix which has been on hold w/ minimal improvement still quite positive overall in terms of fluid balance but several unmeasured voids as well -daily bmp -continue to follow on ceftriaxone for UTI >>will give 10 mg IV lasix daily for now and monitor renal labs/vol status/ K (was on 20 mg po daily as OP) -home lisinopril 40 mg daily to remain on hold, albertina given borderline hyperkalemia -faint M spike in gamma globulin band >serum immunofixation ordered given L2 compression frx, hypoalbuminemia, dipstick proteinuria; rest of myeloma screen otherwise negative; held off on 24 hr urine immunofixation -Repeat U/A after the completing the course of anti biotics for Proteinuria quantification and screen>> 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 feels edema a bit better/ at chronic OP baseline as is BL foot numbness; was on RA when I saw him but note on now Review of Systems Review of Systems: All systems reviewed & are unremarkable except as noted in Subjective Physical Exam Constitutional: well developed, well nourished, + frail appearing and comfortable; no acute distress Eyes: EOM intact bilaterally ENMT: Ears: no external ear abnormality Nose: no external nose abnormality Mouth: + dry oral mucous membranes Neck: no nuchal rigidity Respiratory: normal respiratory effort (on RA) Auscultation: + diminished lung sounds (markedly) Cardiovascular: Rate/Rhythm: regular rate and regular rhythm Extremities: + edema (at most trace BLE) Gastrointestinal (Abdomen): Inspection/Auscultation: normal bowel sounds Percussion/Palpation: abdomen soft; abdomen nontender Musculoskeletal: Extremities: strength 5/5 throughout Skin: no rashes, warm and dry Trauma: + abrasion (R bernal) Psychiatric: Orientation: oriented to person and oriented to place Speech: normal rate/rhythm/volume of speech Affect: euthymic affect Results & Data ([facility]) Vital Signs (Past 12 Hours) Vital Signs Temp Pulse Pulse Resp BP Pulse Ox 02/22/21 08:13 48 L 02/22/21 06:53 36.5 C 54 L 18 151/78 H 93 02/22/21 04:57 66 02/22/21 02:46 36.7 C 54 L 18 151/66 H 92 Laboratory Results 02/22/21 01:23 02/22/21 06:41
[2021-02-22] MEDS ORDERED: FUROSEMIDE 10 MG in SYRINGE 0 ML IV SCH (11:30)
--- NOTE | 2021-02-22 14:44 | Electrocardiogram Report ---
Test Reason : Blood Pressure : / mmHG Vent. Rate : 057 BPM Atrial Rate : 340 BPM P-R Int : 000 ms QRS Dur : 134 ms QT Int : 478 ms P-R-T Axes : 000 255 006 degrees QTc Int : 465 ms Atrial fibrillation with slow ventricular response Right bundle branch block Cannot rule out Inferior infarct (cited on or before 16-FEB-2021) Abnormal ECG When compared with ECG of 16-FEB-2021 18:26, No significant change was found Confirmed by Javier Darling ([id number]) on 02/22/2021 2:44:43 PM Referred By: REFERRED SELF Confirmed By:Javier Darling
--- NOTE | 2021-02-22 15:15 | Hospitalist Progress Note ---
Date of Service February 22, 2021 Assessment & Plan (1) UTI (urinary tract infection): Was initially started on Zosyn, switched to Rocephin and continues on this now. Abdominal pain has improved per his report. Some residual weakness is present, likely a result of the infection. Cont with PT/OT. Close urology follow-up for his scheduled 3 month cystoscopy surveillance and maintenance BCG treatments as outpatient. (2) NATE (acute kidney injury): Nephro following. Etiology unclear with differential including but not limited to prerenal cause in setting of infection, HUDSON. Initially thought to be overloaded and was given one dose Lasix with worsening renal function. Home Lasix on hold for now (20mg daily). Home lisinopril also held (40mg daily). Daily BMP (3) Hypertension: Hypertensive off his lisinopril. Continue Norvasc. Spironolactone was held in setting of hyperkalemia overnight. Low salt diet (4) Fracture, lumbar vertebra, compression: Nontraumatic, patient has no pain. With h/o malignancy, metastatic disease causing fracture was questioned and MRI was offered to assess nature of fracture and acuity, but declined by patient secondary to claustrophobia. Ortho spine saw him and noted his back pain is chronic and unchanged with the film and clinical picture consistent with a chronic compression fracture of L2 most likely. 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 Lopez in Oct 2020. He continues to undergo q3 month cystoscopies and BCG maintenance therapy. Follow-up [facility] Urology as outpatient. (6) Abnormal LFTs: Noted to have abnormal LFTs Has cholelithiasis without any evidence of cholecystitis ultrasound of the liver -did not show any acute cholecystitis but did show changes suggestive of early cirrhosis-outpatient GI follow-up recommended. hepatitis profile-negative Liver functions have been [id number] as outpatient (7) PAD (peripheral artery disease): Extensive atherosclerotic arterial disease with a suspected high-grade stenosis of the infrarenal abdominal aorta is present. There are extensive atheromatous changes within the common femoral and superficial femoral arteries. Patient currently has significant numbness in his feet. Vascular consulted and no surgical intervention recommended. (8) Atrial fibrillation: Heart rate is controlled Continue with metoprolol. Not on any anticoagulation likely secondary to history of hematuria and bladder cancer (9) CHF (congestive heart failure): Chronic, compensated. Off daily Lasix. Monitor daily weights. Low salt diet. (10) Pulmonary nodule: Followed by pulmonary clinic. (11) DVT prophylaxis: Heparin Full Code Dispo-uncertain at this time. Pending improvement of renal function and PT/OT recommendations. Adriana Morales DO [facility] Hospitalist Admission and Anticipated Discharge Date Admission Date: February 16, 2021 Subjective The patient is an 89-year-old man sent over from his doctor for evaluation of fever and abdominal pain that had been ongoing for 1 week. He has a prior history of colon cancer status post resection and a history of bladder cancer. On arrival white count was 22 and creatinine was elevated from baseline to 1.65. He has a normal baseline kidney function. He has known atrial fibrillation and an EKG on admission revealed no acute ischemic changes. A UTI was seen, blood cultures were ordered and he was given Zosyn. A CT of the abdomen and pelvis without contrast reports severe numbness in his feet bilaterally, cannot walk or stand easily. Denies any claudication with walking recently or at rest. Denies any abdominal pain today. Tolerating PO, afebrile. Denies CP or SOB. Review of Systems Review of Systems: All systems reviewed & are unremarkable except as noted in Subjective Physical Exam Physical Exam: CONSTITUTIONAL: WNWD, vitals as above, generally well- appearing EYES: normal conjunctivae, no scleral icterus ENT: external ear and nose normal, MMM RESPIRATORY: clear to auscultation bilaterally, no crackles, rales or wheezes, normal respiratory effort CARDIOVASCULAR: regular rate and rhythm, S1 and 2 heard without murmurs, gallops or rubs, no JVD, no peripheral edema GASTROINTESTINAL: soft, nontender, nondistended MUSCULOSKELETAL: generalized weakness, moves all extremities equally, head is normocephalic and atraumatic SKIN: warm and dry NEUROLOGIC: CN 2-12 grossly intact, sensation deficit on bilateral plantar surface of feet, normal cognition, normal speech PSYCHIATRIC: alert cooperative and oriented to person, place and time. Results & Data Results & Data ([facility]) Vital Signs (Past 12 Hours) Vital Signs Temp Pulse Pulse Resp BP Pulse Ox 02/22/21 14:49 36.6 C 60 18 170/73 H 97 02/22/21 11:38 36.6 C 59 L 18 178/65 H 91 02/22/21 08:13 48 L 02/22/21 06:53 36.5 C 54 L 18 151/78 H 93 02/22/21 04:57 66 Laboratory Results Short CBC 02/22/21 Range/Units 01:23 WBC 12.24 H (4.8-10.8) K/uL Hgb 13.1 L (14.0-18.0) g/dL Hct 39.3 L (42-52) % Plt Count 316 (130-400) K/uL BMP 02/22/21 02/22/21 01:23 06:41 Sodium 135 L Potassium 5.3 H 5.1 Chloride 104 Carbon Dioxide 29 BUN 59 H Creatinine 2.16 H Glucose 125 H Calcium 8.5 Medications Administered Current Inpatient Medications Amlodipine Besylate (Amlodipine Besylate 5 Mg Tab) 5 mg PO QPM [facility] Stop: 03/18/21 22:41 Last Admin: 02/21/21 22:13 Dose: 5 mg Documented by: Aspirin (Aspirin 81 Mg Ectab) 81 mg PO HS [facility] Stop: 03/18/21 22:41 Last Admin: 02/21/21 22:12 Dose: 81 mg Documented by: Diclofenac Sodium (Diclofenac Sod 1% Gel 100 Gm Tube) 2 gm EXT QID [facility] Stop: 03/22/21 16:59 Last Admin: 02/22/21 14:15 Dose: Not Given Documented by: Finasteride (Finasteride 5 Mg Tab) 5 mg PO QAM [facility] Stop: 03/19/21 08:59 Last Admin: 02/22/21 08:42 Dose: 5 mg Documented by: Heparin Sodium (Porcine) (Heparin Sod 5,000 Unit/0.5 Ml Vial) 5,000 units SQ Q12 [facility] Stop: 03/21/21 20:59 Last Admin: 02/22/21 08:42 Dose: 5,000 units Documented by: Ceftriaxone Sodium 2,000 mg/ (Dextrose) 70 mls @ 140 mls/hr IV DAILY@1600 [facility] Stop: 03/01/21 15:59 Last Infusion: 02/21/21 16:26 Dose: Infused Documented by: Furosemide 10 mg/ Syringe 1 mls @ 4 mls/min IV DAILY [facility] Stop: 03/24/21 11:29 Last Admin: 02/22/21 12:52 Dose: 4 mls/min Documented by: Metoprolol Succinate (Metoprolol Succ 25mg Ext Rel Tab) 25 mg PO QPM [facility] Stop: 03/24/21 20:59 Multivitamins/Minerals (Cerovite Adv Formula Tab) 1 tab PO QAM [facility] Stop: 03/19/21 08:59 Last Admin: 02/22/21 08:42 Dose: 1 tab Documented by: Spironolactone (Spironolactone 25 Mg Tab) 25 mg PO QAM [facility] Stop: 03/19/21 08:59 Last Admin: 02/21/21 08:48 Dose: 25 mg Documented by: Tamsulosin HCl (Tamsulosin Hcl 0.4 Mg Cap) 0.4 mg PO HS [facility] Stop: 03/18/21 22:41 Last Admin: 02/21/21 22:11 Dose: 0.4 mg Documented by:
--- NOTE | 2021-02-22 16:26 | Consultation ---
Date of Consultation February 22, 2021 Assessment & Plan (1) Aortoiliac occlusive disease: Pt with severe stenosis of aorta at takeoff of renal arteries. Angiography with stenting is not an option d/t location of the plaque at the renal arteries. Pt appears to be asymptomatic at this time. If pt were to develop sx, he would require transfer to tertiary center for further eval and possible aortic endarterectomy. Please call if needed. History of Present Illness Reason for Consultation: aortic stenosis Attending Physician: Adriana Morales DO History of Present Illness 89 yo m with hx of HTN, CHF, a fib, bladder ca, pulmonary nodule, admitted with acute kidney injury and UTI, seen in consultation today for severe stenosis of abd aorta noted on CT scan. Pt states he was c/o some RLQ discomfort and nausea, so his PCP ordered testing and then he was told to come to [facility] ED. States his sx have resolved since admission and his appetite is improved. Admits some generalized weakness and states he has had edema and numbness of bilateral feet for months. Denies prior hx of PAD, GARCIA, chest pain, SOB, abd pain presently, N/V presently, ulcerations of feet/toes, claudication, other complaints. States can ambulate with walker, but only goes very short distances. CT scan demonstrates high grade stenosis of suprarenal aorta at renal arteries. Allergies Allergy/AdvReac Type Severity Reaction Status Date / Time No Known Allergies Allergy Unknown Verified 02/16/21 16:19 Home Medications Medication Instructions Recorded Confirmed Type PreserVision AREDS 1 tab PO BID 09/14/19 02/16/21 History amlodipine 5 mg PO QPM 09/14/19 02/16/21 History lisinopril 40 mg PO QAM 09/14/19 02/16/21 History metoprolol succinate 100 mg PO QPM 09/14/19 02/16/21 History multivitamin 1 tab PO QAM 09/14/19 02/16/21 History finasteride [Proscar] 5 mg PO QAM 30 Days #30 tab 09/19/19 02/16/21 Rx tamsulosin 0.4 mg PO HS 30 Days #30 cap 09/19/19 02/16/21 Rx aspirin 81 mg tablet,delayed 81 mg PO HS 09/30/19 02/16/21 History release furosemide [Lasix] 20 mg PO QAM 10/08/19 02/16/21 History nitrofurantoin 100 mg PO Q12H 10 Days #20 cap 12/06/20 02/16/21 Rx monohydrate/macrocrystals 100 mg capsule spironolactone 25 mg PO QAM 02/16/21 02/16/21 History Patient History Medical History Abnormal CT scan of lung Asymptomatic hypertensive urgency Improved- BP 126/60 at cardio appt 10/07/19 Atrial fibrillation Bladder cancer Bladder mass BPH loc w urin obs/LUTS CHF (congestive heart failure) Clot retention of urine Colon cancer 2002 Diastolic heart failure Dyspnea Gross hematuria Hypertension Pleural effusion on right S/p thoracentesis - 1300ml during admission from 09/19/19- feels secondary to decompensated HF. Pneumonia age 18 Pulmonary hypertension Pulmonary nodule Followed by pulm - incidental finding Surgical History History of cataract extraction History of colonoscopy History of cystoscopy EVACUATION OF BLOOD CLOTS History of transurethral resection of prostate 10/19/19-transurethral resection bladder tumor with resection of bladder neck & prostate. S/P carpal tunnel release R/L S/P colon resection 2002 S/P TKR (total knee replacement) R/L S/P tonsillectomy Family History Family/Other Cancer Heart disease Mother , age 85 of stroke No problems noted. Father , age 69 Myocardial infarction Brother No problems noted. 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 How many Children do You have: 9 Other Information That Helps Us Care for You: No Feels Safe at Home: Yes Safety Concerns: Feels Safe At This Time Childhood Exposure to Second-Hand Smoke: No caffeine: Yes (a few cups of coffee in the am) Assistive Devices: Denture - Upper Review of Systems Review of Systems: All systems reviewed & are unremarkable except as noted in HPI & below Physical Exam Constitutional: WD/WN, vitals as above + disheveled and cooperative; not in distress ENMT: Ears: no hearing impairment Neck: trachea midline Respiratory: normal respiratory effort, lungs clear to auscultation Auscultation: + diminished lung sounds Cardiovascular: Rate/Rhythm: + irregularly irregular Vessels: radial pulses present; + abnormal peripheral pulses, + femoral pulses abnormal, + posterior tibial pulses abnormal (nonpalpable) and + dorsalis pedis pulses abnormal (nonpalpable) Extremities: normal capillary refill, + pedal edema and + edema Gastrointestinal (Abdomen): normal bowel sounds, soft, nontender, no hepatosplenomegaly Musculoskeletal: no cyanosis or clubbing, extremities motor strength 5/5 Skin: no rashes, warm and dry Neurologic: moves all extremities and awake; no focal motor deficits and not confused Psychiatric: A+Ox3, euthymic affect Results & Data ([facility]) Vital Signs (Past 12 Hours) Vital Signs Temp Pulse Pulse Resp BP Pulse Ox 02/22/21 15:50 58 L 02/22/21 14:49 36.6 C 60 18 170/73 H 97 02/22/21 11:38 36.6 C 59 L 18 178/65 H 91 02/22/21 08:13 48 L 02/22/21 06:53 36.5 C 54 L 18 151/78 H 93 02/22/21 04:57 66
[2021-02-22] MEDS: cefTRIAXone SODIUM 2,000 MG in DEXTROSE 5% 50 ML IV SCH (16:43)
[2021-02-22] MEDS: ASPIRIN 81 MG ECTAB PO SCH (20:41)
[2021-02-22] MEDS: TAMSULOSIN HCL 0.4 MG CAP PO SCH (20:42)
[2021-02-22] MEDS: amLODIPine BESYLATE 5 MG TAB PO SCH (20:51)
[2021-02-22] MEDS: METOPROLOL SUCC 25MG EXT REL TAB PO SCH (20:52)
[2021-02-23] MEDS: HEPARIN SOD 5,000 UNIT/0.5 ML VIAL SQ SCH ×2 (08:52→20:39)
[2021-02-23] MEDS: CEROVITE ADV FORMULA TAB PO SCH (08:52)
[2021-02-23] MEDS: FINASTERIDE 5 MG TAB PO SCH (08:52)
[2021-02-23] MEDS: DICLOFENAC SOD 1% GEL 100 GM TUBE EXT SCH ×4 (08:53→20:39)
[2021-02-23 08:59] LABS: BUN Creatinine Ratio 27.8 (10-20); Calcium 9.1 mg/dl (8.5-10.1); Creatinine Clr Calc Pharmacy 31.1 ml/min; Est GFR (African American) 37.1 ml/min; Potassium 5.9 mmol/L (3.5-5.1)
[2021-02-23] MEDS ORDERED: INSULIN HUMAN REGULAR IV STA (09:23)
[2021-02-23] MEDS ORDERED: DEXTROSE 50% 50 ML SYRINGE IV ONE (09:45)
[2021-02-23] MEDS ORDERED: SODIUM POLYSTYRENE SULFONATE 15G/60ML SUSP PO ONE (09:45)
[2021-02-23] MEDS ORDERED: INSULIN HUMAN REGULAR PER UNIT 10 UNITS in SYRINGE 9.9 ML IV ONE (09:45)
[2021-02-23] MEDS ORDERED: CALCIUM GLUCONATE 10% 1,000 MG in SODIUM CHLORIDE 0.9% 50 ML IV ONE (09:45)
[2021-02-23 12:28] LABS: BUN Creatinine Ratio 26.7 (10-20); Calcium 9.2 mg/dl (8.5-10.1); Creatinine Clr Calc Pharmacy 32.7 ml/min; Est GFR (African American) 39.4 ml/min; Potassium 5.3 mmol/L (3.5-5.1)
--- NOTE | 2021-02-23 15:56 | Electrocardiogram Report ---
Test Reason : Blood Pressure : / mmHG Vent. Rate : 057 BPM Atrial Rate : 090 BPM P-R Int : 000 ms QRS Dur : 136 ms QT Int : 470 ms P-R-T Axes : 000 -50 026 degrees QTc Int : 457 ms Atrial fibrillation with slow ventricular response Left axis deviation Right bundle branch block Cannot rule out Inferior infarct (cited on or before 16-FEB-2021) Abnormal ECG When compared with ECG of 22-FEB-2021 01:40, No significant change was found Confirmed by Javier Darling ([id number]) on 02/23/2021 3:55:43 PM Referred By: REFERRED SELF Confirmed By:Javier Darling
[2021-02-23] MEDS: cefTRIAXone SODIUM 2,000 MG in DEXTROSE 5% 50 ML IV SCH (16:31)
--- NOTE | 2021-02-23 17:15 | Nephrology Progress Note ---
Date of Service February 23, 2021 Assessment & Plan (1) NATE (acute kidney injury): Acute kidney injury on CKD. unknown baseline creatinine (in [employer]) -- was 1.7 on presentation 02/16, peak at 2.8 on 02/19; down to 1.8 today despite IV contrast yesterday attributed at first to Volume overload, on the background of UTI/pyelonephritis/diastolic heart failure/HUDSON > however renal failure worsened w/ one dose of lasix which has been on hold w/ minimal improvement still quite positive overall in terms of fluid balance but several unmeasured voids as well -daily bmp -continue to follow on ceftriaxone for UTI >>held lasix today given recent IV contrast w/ CT scan > needed tx today for hyperkalemia and likely to need to resume low dose lasix tomorrow -home lisinopril 40 mg daily to remain on hold, albertina given borderline hyperkalemia -faint M spike in gamma globulin band >serum immunofixation ordered given L2 compression frx, hypoalbuminemia, dipstick proteinuria; rest of myeloma screen otherwise negative; held off on 24 hr urine immunofixation -Repeat U/A after the completing the course of anti biotics for Proteinuria quantification and screen>> 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 w/ u/s showing bladder wall thickening > for OP urology f/u Admission and Anticipated Discharge Date Admission Date: February 16, 2021 Subjective renal function improved today ; imaging shows severe to renal artery take off Review of Systems Review of Systems: All systems reviewed & are unremarkable except as noted in Subjective Physical Exam Constitutional: well developed, well nourished, + frail appearing and comfortable; no acute distress Eyes: EOM intact bilaterally ENMT: Ears: no external ear abnormality Nose: no external nose abnormality Mouth: + dry oral mucous membranes Neck: no nuchal rigidity Respiratory: normal respiratory effort (on RA) Auscultation: + diminished lung sounds (markedly) Cardiovascular: Rate/Rhythm: regular rate and regular rhythm Extremities: + edema (at most trace BLE) Gastrointestinal (Abdomen): Inspection/Auscultation: normal bowel sounds Percussion/Palpation: abdomen soft; abdomen nontender Musculoskeletal: Extremities: strength 5/5 throughout Skin: no rashes, warm and dry Trauma: + abrasion (R bernal) Psychiatric: Orientation: oriented to person Results & Data ([place]) Vital Signs (Past 12 Hours) Vital Signs Temp Pulse Pulse Resp BP BP Pulse Ox 02/23/21 16:57 63 02/23/21 15:53 184/67 H 02/23/21 15:52 37.0 C 64 18 195/70 H 94 02/23/21 11:47 36.7 C 58 L 18 175/67 H 95 02/23/21 08:14 48 L 02/23/21 07:55 36.7 C 55 L 16 175/72 H 95 Laboratory Results 02/22/21 01:23 02/23/21 11:44
[2021-02-23] MEDS ORDERED: hydrALAZINE HCL 20 MG/ML VIAL IV STA (18:00)
--- NOTE | 2021-02-23 18:19 | Hospitalist Progress Note ---
Date of Service February 23, 2021 Assessment & Plan (1) UTI (urinary tract infection): Was initially started on Zosyn, switched to Rocephin and continues on this now. Abdominal pain has improved per his report. Some residual weakness is present, likely a result of the infection. Cont with PT/OT. Close urology follow-up for his scheduled 3 month cystoscopy surveillance and maintenance BCG treatments as outpatient. To rehab as a transition to home. (2) NATE (acute kidney injury): Nephro following. Etiology unclear with differential including but not limited to prerenal cause in setting of infection, HUDSON. Initially thought to be overloaded and was given one dose Lasix with worsening renal function. Home Lasix on hold for now (20mg daily). Home lisinopril also held (40mg daily). Daily BMP. Adjustments per nephrology (3) Hypertension: uncontrolled off his lisinopril and spironolactone. Cont Norvasc and low salt diet. Hydralazine now. Nephro for recommendations on adjustments. (4) Fracture, lumbar vertebra, compression: Nontraumatic, patient has no pain. With h/o malignancy, metastatic disease causing fracture was questioned and MRI was offered to assess nature of fracture and acuity, but declined by patient secondary to claustrophobia. Ortho spine saw him and noted his back pain is chronic and unchanged with the film and clinical picture consistent with a chronic compression fracture of L2 most likely. 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 Lopez in Oct 2020. He continues to undergo q3 month cystoscopies and BCG maintenance therapy. Follow-up [facility] as outpatient. (6) Abnormal LFTs: Noted to have abnormal LFTs Has cholelithiasis without any evidence of cholecystitis ultrasound of the liver -did not show any acute cholecystitis but did show changes suggestive of early cirrhosis-outpatient GI follow-up recommended. hepatitis profile-negative Liver functions have been [id number]-[id number] as outpatient (7) PAD (peripheral artery disease): Extensive atherosclerotic arterial disease with a suspected high-grade stenosis of the infrarenal abdominal aorta is present. There are extensive atheromatous changes within the common femoral and superficial femoral arteries. Patient currently has significant numbness in his feet. Vascular consulted and no surgical intervention recommended. (8) Atrial fibrillation: Heart rate is controlled Continue with metoprolol. Not on any anticoagulation likely secondary to history of hematuria and bladder cancer (9) CHF (congestive heart failure): Chronic, compensated. Off daily Lasix. Monitor daily weights. Low salt diet. (10) Pulmonary nodule: Followed by pulmonary clinic. (11) DVT prophylaxis: Heparin Full Code Dispo-to rehab. Awaiting placement. Adriana Morales DO [facility] Hospitalist Admission and Anticipated Discharge Date Admission Date: February 16, 2021 Subjective The patient is an 89-year-old man sent over from his doctor for evaluation of fever and abdominal pain that had been ongoing for 1 week. He has a prior history of colon cancer status post resection and a history of bladder cancer. On arrival white count was 22 and creatinine was elevated from baseline to 1.65. He has a normal baseline kidney function. He has known atrial fibrillation and an EKG on admission revealed no acute ischemic changes. A UTI was seen, blood cultures were ordered and he was given Zosyn. Today he has no abdominal pain, he is eating well, had hyperkalemia this morning and received insulin/D50, calcium, kayexalate and did have a BM. Repeat K was 5.3. He did drink OJ this morning and was counseled on avoiding high potassium foods at this time. at bedside and discussed rehab option-patient and in agreement. Await auth after hol weekend. Review of Systems Review of Systems: All systems reviewed & are unremarkable except as noted in Subjective Physical Exam Physical Exam: CONSTITUTIONAL: WNWD, vitals as above, generally well- appearing EYES: normal conjunctivae, no scleral icterus ENT: external ear and nose normal, MMM RESPIRATORY: clear to auscultation bilaterally, no crackles, rales or wheezes, normal respiratory effort CARDIOVASCULAR: regular rate and rhythm, S1 and 2 heard without murmurs, gallops or rubs, no JVD, no peripheral edema GASTROINTESTINAL: soft, nontender, nondistended MUSCULOSKELETAL: generalized weakness, moves all extremities equally, head is normocephalic and atraumatic SKIN: warm and dry NEUROLOGIC: CN 2-12 grossly intact, sensation deficit on bilateral plantar surface of feet, normal cognition, normal speech PSYCHIATRIC: alert cooperative and oriented to person, place and time. Results & Data Results & Data ([facility]) Vital Signs (Past 12 Hours) Vital Signs Temp Pulse Pulse Resp BP BP Pulse Ox 02/23/21 16:57 63 02/23/21 15:53 184/67 H 02/23/21 15:52 37.0 C 64 18 195/70 H 94 02/23/21 11:47 36.7 C 58 L 18 175/67 H 95 02/23/21 08:14 48 L 02/23/21 07:55 36.7 C 55 L 16 175/72 H 95 Laboratory Results BMP 02/23/21 02/23/21 06:24 11:44 Sodium 135 L 135 L Potassium 5.9 H D 5.3 H Chloride 104 104 Carbon Dioxide 29 27 BUN 51 H 47 H Creatinine 1.84 H D 1.75 H Glucose 105 H 99 Calcium 9.1 9.2 Medications Administered Current Inpatient Medications Amlodipine Besylate (Amlodipine Besylate 5 Mg Tab) 5 mg PO QPM LEONOR Stop: 03/18/21 22:41 Last Admin: 02/22/21 20:51 Dose: 5 mg Documented by: Aspirin (Aspirin 81 Mg Ectab) 81 mg PO HS LEONOR Stop: 03/18/21 22:41 Last Admin: 02/22/21 20:41 Dose: 81 mg Documented by: Diclofenac Sodium (Diclofenac Sod 1% Gel 100 Gm Tube) 2 gm EXT QID LEONOR Stop: 03/22/21 16:59 Last Admin: 02/23/21 16:36 Dose: Not Given Documented by: Finasteride (Finasteride 5 Mg Tab) 5 mg PO QAM LEONOR Stop: 03/19/21 08:59 Last Admin: 02/23/21 08:52 Dose: 5 mg Documented by: Heparin Sodium (Porcine) (Heparin Sod 5,000 Unit/0.5 Ml Vial) 5,000 units SQ Q12 LEONOR Stop: 03/21/21 20:59 Last Admin: 02/23/21 08:52 Dose: 5,000 units Documented by: Hydralazine HCl (Hydralazine 10 Mg Tab) 10 mg PO TID LEONOR Stop: 03/25/21 20:59 Ceftriaxone Sodium 2,000 mg/ (Dextrose) 70 mls @ 140 mls/hr IV DAILY@1600 LEONOR Stop: 03/01/21 15:59 Last Infusion: 02/23/21 17:05 Dose: Infused Documented by: Furosemide 10 mg/ Syringe 1 mls @ 4 mls/min IV DAILY LEONOR Stop: 03/25/21 17:59 Metoprolol Succinate (Metoprolol Succ 25mg Ext Rel Tab) 25 mg PO QPM LEONOR Stop: 03/24/21 20:59 Last Admin: 02/22/21 20:52 Dose: 25 mg Documented by: Multivitamins/Minerals (Cerovite Adv Formula Tab) 1 tab PO QAM LEONOR Stop: 03/19/21 08:59 Last Admin: 02/23/21 08:52 Dose: 1 tab Documented by: Spironolactone (Spironolactone 25 Mg Tab) 25 mg PO QAM LEONOR Stop: 03/19/21 08:59 Last Admin: 02/21/21 08:48 Dose: 25 mg Documented by: Tamsulosin HCl (Tamsulosin Hcl 0.4 Mg Cap) 0.4 mg PO [facility] Stop: 03/18/21 22:41 Last Admin: 02/22/21 20:42 Dose: 0.4 mg Documented by:
[2021-02-23] MEDS: FUROSEMIDE 10 MG in SYRINGE 0 ML IV SCH (18:34)
[2021-02-23] MEDS: amLODIPine BESYLATE 5 MG TAB PO SCH (20:39)
[2021-02-23] MEDS: TAMSULOSIN HCL 0.4 MG CAP PO SCH (20:39)
[2021-02-23] MEDS: ASPIRIN 81 MG ECTAB PO SCH (20:40)
[2021-02-23] MEDS: hydrALAZINE 10 MG TAB PO SCH (20:40)
[2021-02-23] MEDS: METOPROLOL SUCC 25MG EXT REL TAB PO SCH (20:40)
[2021-02-24 06:59] LABS: Hematocrit (blood only) 39.9 % (42-52); Hemoglobin 13.2 g/dL (14.0-18.0); Mean Corpuscular Hemoglobin 31.1 pg (25-34); Mean Corpuscular Hgb Conc 33.1 g/dL (32-36); Mean Corpuscular Volume 94.1 fL (80-100); Platelet Count 330 K/uL (130-400); RDW Coefficient of Variation 14.2 % (11.5-14.5); RDW Standard Deviation 48.6 fL (36.4-46.3); Red Blood Count 4.24 M/uL (4.7-6.1); White Blood Count 10.24 K/uL (4.8-10.8)
[2021-02-24 07:30] LABS: BUN Creatinine Ratio 28.1 (10-20); Calcium 8.7 mg/dl (8.5-10.1); Creatinine Clr Calc Pharmacy 36.9 ml/min; Est GFR (Non-African American) 39.7 ml/min; Magnesium 1.9 mg/dl (1.8-2.4); Potassium 4.7 mmol/L (3.5-5.1)
[2021-02-24 07:31] LABS: Phosphorus 3.2 mg/dl (2.5-4.9)
[2021-02-24] MEDS: HEPARIN SOD 5,000 UNIT/0.5 ML VIAL SQ SCH ×2 (09:03→20:32)
[2021-02-24] MEDS: hydrALAZINE 10 MG TAB PO SCH ×3 (09:04→20:32)
[2021-02-24] MEDS: FINASTERIDE 5 MG TAB PO SCH (09:04)
[2021-02-24] MEDS: DICLOFENAC SOD 1% GEL 100 GM TUBE EXT SCH ×4 (09:07→20:33)
[2021-02-24] MEDS: FUROSEMIDE 10 MG in SYRINGE 0 ML IV SCH (09:11)
--- NOTE | 2021-02-24 14:43 | Hospitalist Progress Note ---
Date of Service February 24, 2021 Assessment & Plan (1) UTI (urinary tract infection): Was initially started on Zosyn, switched to Rocephin and continues on this now. Abdominal pain has improved per his report. Some residual weakness is present, likely a result of the infection. Cont with PT/OT. Close urology follow-up for his scheduled 3 month cystoscopy surveillance and maintenance BCG treatments as outpatient. To rehab as a transition to home. (2) Gram-negative bacteremia: One blood culture was positive for E coli, same bug as in urine. Cont ceftriaxone and repeat blood cultures now to ensure this has cleared. Consult ID for recommendations. (3) NATE (acute kidney injury): Nephro following. Etiology unclear with differential including but not limited to prerenal cause in setting of infection, HUDSON. Initially thought to be overloaded and was given one dose Lasix with worsening renal function. Home Lasix on hold for now (20mg daily). Home lisinopril also held (40mg daily). Daily BMP. Adjustments per nephrology (4) Hypothyroidism: Subclinical hypothyroidism. As patient is elderly will start very low dose Synthroid and have him followup in the clinic for repeat TFTs in 6-8 weeks. (5) Peripheral neuropathy: Has some mild hypothyroidism-will start low dose Synthroid per plan below. Will also screen for reversible causes with A1C, iron studies, B12/folate, 25OH. Replace as needed. (6) Hypertension: uncontrolled off his lisinopril and spironolactone. Cont Norvasc and low salt diet. Hydralazine 10mg PO TID is not imrpoving things. Adding back lisinopril at 50% dose and watch for hyperkalemia. If that occurs may just add back his home Lasix, also. Cont to monitor. (7) Fracture, lumbar vertebra, compression: Nontraumatic, patient has no pain. With h/o malignancy, metastatic disease causing fracture was questioned and MRI was offered to assess nature of fracture and acuity, but declined by patient secondary to claustrophobia. Ortho spine saw him and noted his back pain is chronic and unchanged with the film and clinical picture consistent with a chronic compression fracture of L2 most likely. 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 Lopez in Oct 2020. He continues to undergo q3 month cystoscopies and BCG maintenance therapy. Follow-up [facility] as outpatient. (9) Abnormal LFTs: Noted to have abnormal LFTs Has cholelithiasis without any evidence of cholecystitis ultrasound of the liver -did not show any acute cholecystitis but did show changes suggestive of early cirrhosis-outpatient GI follow-up recommended. hepatitis profile-negative Liver functions have been uhcilzihh-hkdwzs-jz as outpatient (10) PAD (peripheral artery disease): Extensive atherosclerotic arterial disease with a suspected high-grade stenosis of the infrarenal abdominal aorta is present. There are extensive a theromatous changes within the common femoral and superficial femoral arteries. Patient currently has significant numbness in his feet. Vascular consulted and no surgical intervention recommended. (11) Atrial fibrillation: Heart rate is controlled Continue with metoprolol. Not on any anticoagulation likely secondary to history of hematuria and bladder cancer (12) CHF (congestive heart failure): Chronic, compensated. Off daily Lasix. Monitor daily weights. Low salt diet. (13) Pulmonary nodule: Followed by pulmonary clinic. (14) DVT prophylaxis: Heparin Full Code Dispo-to rehab. Awaiting placement. Adriaan Morales DO [facility] Hospitalist Admission and Anticipated Discharge Date Admission Date: February 16, 2021 Subjective The patient is an 89-year-old man sent over from his doctor for evaluation of fever and abdominal pain that had been ongoing for 1 week. He has a prior history of colon cancer status post resection and a history of bladder cancer. On arrival white count was 22 and creatinine was elevated from baseline to 1.65. He has a normal baseline kidney function. He has known atrial fibrillation and an EKG on admission revealed no acute ischemic changes. A UTI was seen, blood cultures were ordered and he was given Zosyn. Abdominal pain resolved and he remains on ceftriaxone with one blood culture positive for E coli. He is not ill-appearing and feels well overall. He had an issue with hyperkalemia which was treated and has resolved. His spironolactone and lisinopril is on hold and he is on a low potassium diet. Still has bilateral foot numbness with some swelling present, causing him trouble walking around. Awaiting placement to SNF after holiday weekend. Review of Systems Review of Systems: All systems reviewed & are unremarkable except as noted in Subjective Physical Exam Physical Exam: CONSTITUTIONAL: WNWD, vitals as above, generally well- appearing EYES: normal conjunctivae, no scleral icterus ENT: external ear and nose normal, MMM RESPIRATORY: clear to auscultation bilaterally, no crackles, rales or wheezes, normal respiratory effort CARDIOVASCULAR: regular rate and rhythm, S1 and 2 heard without murmurs, gallops or rubs, no JVD, no peripheral edema GASTROINTESTINAL: soft, nontender, nondistended MUSCULOSKELETAL: generalized weakness, moves all extremities equally, head is normocephalic and atraumatic SKIN: warm and dry NEUROLOGIC: CN 2-12 grossly intact, sensation deficit on bilateral plantar surface of feet, normal cognition, normal speech PSYCHIATRIC: alert cooperative and oriented to person, place and time. Results & Data Results & Data ([facility]) Vital Signs (Past 12 Hours) Vital Signs Temp Pulse Pulse Resp BP BP Pulse Ox 02/24/21 11:44 36.4 C L 83 20 163/71 H 97 02/24/21 09:00 64 148/68 H 02/24/21 07:51 36.6 C 66 20 134/72 95 02/24/21 07:15 64 02/24/21 04:01 36.7 C 69 20 176/74 H 95 Laboratory Results Short CBC 02/24/21 Range/Units 06:11 WBC 10.24 (4.8-10.8) K/uL Hgb 13.2 L (14.0-18.0) g/dL Hct 39.9 L (42-52) % Plt Count 330 (130-400) K/uL BMP 02/24/21 06:11 Sodium 137 Potassium 4.7 Chloride 102 Carbon Dioxide 27 BUN 43 H Creatinine 1.54 H Glucose 101 H Calcium 8.7 Medications Administered Current Inpatient Medications Amlodipine Besylate (Amlodipine Besylate 5 Mg Tab) 5 mg PO QPM LEONOR Stop: 03/18/21 22:41 Last Admin: 02/23/21 20:39 Dose: 5 mg Documented by: Aspirin (Aspirin 81 Mg Ectab) 81 mg PO HS LEONOR Stop: 03/18/21 22:41 Last Admin: 02/23/21 20:40 Dose: 81 mg Documented by: Diclofenac Sodium (Diclofenac Sod 1% Gel 100 Gm Tube) 2 gm EXT QID LEONOR Stop: 03/22/21 16:59 Last Admin: 02/24/21 13:23 Dose: 2 gm Documented by: Finasteride (Finasteride 5 Mg Tab) 5 mg PO QAM LEONOR Stop: 03/19/21 08:59 Last Admin: 02/24/21 09:04 Dose: 5 mg Documented by: Heparin Sodium (Porcine) (Heparin Sod 5,000 Unit/0.5 Ml Vial) 5,000 units SQ Q12 LEONOR Stop: 03/21/21 20:59 Last Admin: 02/24/21 09:03 Dose: 5,000 units Documented by: Hydralazine HCl (Hydralazine 10 Mg Tab) 10 mg PO TID LEONOR Stop: 03/25/21 20:59 Last Admin: 02/24/21 13:22 Dose: 10 mg Documented by: Ceftriaxone Sodium 2,000 mg/ (Dextrose) 70 mls @ 140 mls/hr IV DAILY@1600 LEONOR Stop: 03/01/21 15:59 Last Infusion: 02/23/21 17:05 Dose: Infused Documented by: Furosemide 10 mg/ Syringe 1 mls @ 4 mls/min IV DAILY [facility]ONOR Stop: 03/25/21 17:59 Last Admin: 02/24/21 09:11 Dose: 4 mls/min Documented by: Metoprolol Succinate (Metoprolol Succ 25mg Ext Rel Tab) 25 mg PO QPM LEONOR Stop: 03/24/21 20:59 Last Admin: 02/23/21 20:40 Dose: 25 mg Documented by: Multivitamins/Minerals (Cerovite Adv Formula Tab) 1 tab PO QAM LEONOR Stop: 03/19/21 08:59 Last Admin: 02/23/21 08:52 Dose: 1 tab Documented by: Spironolactone (Spironolactone 25 Mg Tab) 25 mg PO QAM LEONOR Stop: 03/19/21 08:59 Last Admin: 02/21/21 08:48 Dose: 25 mg Documented by: Tamsulosin HCl (Tamsulosin Hcl 0.4 Mg Cap) 0.4 mg PO HS [facility] Stop: 03/18/21 22:41 Last Admin: 02/23/21 20:39 Dose: 0.4 mg Documented by:
[2021-02-24] MEDS ORDERED: lisinopril 20 MG TAB PO STA (14:44)
[2021-02-24] MEDS: cefTRIAXone SODIUM 2,000 MG in DEXTROSE 5% 50 ML IV SCH (15:07)
[2021-02-24] MEDS: amLODIPine BESYLATE 5 MG TAB PO SCH (20:31)
[2021-02-24] MEDS: ASPIRIN 81 MG ECTAB PO SCH (20:31)
[2021-02-24] MEDS: METOPROLOL SUCC 25MG EXT REL TAB PO SCH (20:32)
[2021-02-24] MEDS: TAMSULOSIN HCL 0.4 MG CAP PO SCH (20:32)
[2021-02-25] MEDS: MICONAZOLE NITRATE POWDER 43 GM EXT PRN ×2 (00:37→13:00)
[2021-02-25] MEDS: LEVOTHYROXINE SODIUM 25 MCG TABLET PO SCH (05:37)
[2021-02-25 08:55] LABS: BUN Creatinine Ratio 26.8 (10-20); Calcium 8.6 mg/dl (8.5-10.1); Creatinine Clr Calc Pharmacy 31.3 ml/min; Est GFR (African American) 37.6 ml/min; Est GFR (Non-African American) 32.4 ml/min; Potassium 4.6 mmol/L (3.5-5.1)
[2021-02-25 09:01] LABS: Ferritin 369.9 ng/ml (8-388); Phosphorus 3.7 mg/dl (2.5-4.9)
[2021-02-25 09:12] LABS: Folate (Folic Acid) > 20.00 ng/ml (>5.38); Vitamin B12 720 pg/ml (193-986)
[2021-02-25] MEDS: HEPARIN SOD 5,000 UNIT/0.5 ML VIAL SQ SCH ×2 (09:13→21:49)
[2021-02-25] MEDS: lisinopril 20 MG TAB PO SCH (09:13)
[2021-02-25] MEDS: FINASTERIDE 5 MG TAB PO SCH (09:13)
[2021-02-25] MEDS: FUROSEMIDE 10 MG in SYRINGE 0 ML IV SCH (09:13)
[2021-02-25] MEDS: hydrALAZINE 10 MG TAB PO SCH ×3 (09:13→21:49)
[2021-02-25] MEDS: DICLOFENAC SOD 1% GEL 100 GM TUBE EXT SCH ×4 (09:14→21:47)
[2021-02-25] MEDS: cefTRIAXone SODIUM 2,000 MG in DEXTROSE 5% 50 ML IV SCH (15:32)
--- NOTE | 2021-02-25 15:48 | Hospitalist Progress Note ---
Date of Service February 25, 2021 Assessment & Plan (1) UTI (urinary tract infection): Was initially started on Zosyn, switched to Rocephin and continues on this now. OK to transition to oral on DC per ID recommendations. Abdominal pain has improved per his report. Some residual weakness is present, likely a result of the infection. Cont with PT/OT. Close urology follow-up for his scheduled 3 month cystoscopy surveillance and maintenance BCG treatments as outpatient. To rehab as a transition to home. (2) Gram-negative bacteremia: One blood culture was positive for E coli, same bug as in urine. Cont ceftriaxone and repeat blood cultures now to ensure this has cleared. Consult ID for recommendations. (3) NATE (acute kidney injury): Likely has CKD but unknown baseline. He is presumably close to this now. (4) Hypothyroidism: Subclinical hypothyroidism. As patient is elderly will start very low dose Synthroid and have him followup in the clinic for repeat TFTs in 6-8 weeks. (5) Peripheral neuropathy: Has some mild hypothyroidism-will start low dose Synthroid per plan below. Will also screen for reversible causes with A1C, iron studies, B12/folate, 25OH. Replace as needed. (6) Hypertension: uncontrolled off his lisinopril and spironolactone. Cont Norvasc and low salt diet. Hydralazine 10mg PO TID. Adding back lisinopril at 50% dose and watch for hyperkalemia. Add back home Lasix in am. Cont to monitor K-cont to hold spironolactone. (7) Fracture, lumbar vertebra, compression: Nontraumatic, patient has no pain. With h/o malignancy, metastatic disease causing fracture was questioned and MRI was offered to assess nature of fracture and acuity, but declined by patient secondary to claustrophobia. Ortho spine saw him and noted his back pain is chronic and unchanged with the film and clinical picture consistent with a chronic compression fracture of L2 most likely. 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 Lopez in Oct 2020. He continues to undergo q3 month cystoscopies and BCG maintenance therapy. Follow-up [facility] Urology as outpatient. (9) Abnormal LFTs: Noted to have abnormal LFTs Has cholelithiasis without any evidence of cholecystitis ultrasound of the liver -did not show any acute cholecystitis but did show changes suggestive of early cirrhosis-outpatient GI follow-up recommended. hepatitis profile-negative Liver functions have been [id number] as outpatient (10) PAD (peripheral artery disease): Extensive atherosclerotic arterial disease with a suspected high-grade stenosis of the infrarenal abdominal aorta is present. There are extensive atheromatous changes within the common femoral and superficial femoral arteries. Patient currently has significant numbness in his feet. Vascular consulted and no surgical intervention recommended. (11) Atrial fibrillation: Heart rate is controlled Continue with metoprolol. Not on any anticoagulation likely secondary to history of hematuria and bladder cancer (12) CHF (congestive heart failure): Chronic, compensated. Restarted daily Lasix. Monitor daily weights. Low salt diet. (13) Pulmonary nodule: Followed by pulmonary clinic. (14) DVT prophylaxis: Heparin Full Code Dispo-to rehab. Awaiting placement. Adriana Morales DO [facility] Hospitalist Admission and Anticipated Discharge Date Admission Date: February 16, 2021 Subjective The patient is an 89-year-old man admitted for UTI, found to have UTI and bacteremia. Peripheral neuropathy and numbness with generalized weakness continues to prevent him from ambulating much at all. Started low dose levothyroxine today and discussed this with him He reports to not be sleeping well Denies significant pain. Tolerating PO Review of Systems Review of Systems: All systems reviewed & are unremarkable except as noted in Subjective Physical Exam Physical Exam: CONSTITUTIONAL: WNWD, vitals as above, generally well- appearing EYES: normal conjunctivae, no scleral icterus ENT: external ear and nose normal, MMM RESPIRATORY: clear to auscultation bilaterally, no crackles, rales or wheezes, normal respiratory effort CARDIOVASCULAR: regular rate and rhythm, S1 and 2 heard without murmurs, gallops or rubs, no JVD, no peripheral edema GASTROINTESTINAL: soft, nontender, nondistended MUSCULOSKELETAL: generalized weakness, moves all extremities equally, head is normocephalic and atraumatic SKIN: warm and dry NEUROLOGIC: CN 2-12 grossly intact, sensation deficit on bilateral plantar surface of feet, normal cognition, normal speech PSYCHIATRIC: alert cooperative and oriented to person, place and time. Results & Data Results & Data ([facility]) Vital Signs (Past 12 Hours) Vital Signs Temp Pulse Pulse Resp BP BP Pulse Ox 02/25/21 14:19 65 02/25/21 14:11 36.6 C 61 18 122/52 L 97 02/25/21 12:11 36.5 C 63 20 147/66 H 95 02/25/21 07:41 36.6 C 56 L 20 131/67 96 02/25/21 07:00 53 L 02/25/21 04:10 36.4 C L 55 L 18 127/68 97 Laboratory Results BMP 02/25/21 08:04 Sodium 137 Potassium 4.6 Chloride 102 Carbon Dioxide 29 BUN 49 H Creatinine 1.82 H Glucose 99 Calcium 8.6 Medications Administered Current Inpatient Medications Amlodipine Besylate (Amlodipine Besylate 5 Mg Tab) 5 mg PO QPM [facility] Stop: 03/18/21 22:41 Last Admin: 02/24/21 20:31 Dose: 5 mg Documented by: Aspirin (Aspirin 81 Mg Ectab) 81 mg PO HS [facility] Stop: 03/18/21 22:41 Last Admin: 02/24/21 20:31 Dose: 81 mg Documented by: Diclofenac Sodium (Diclofenac Sod 1% Gel 100 Gm Tube) 2 gm EXT QID [facility] Stop: 03/22/21 16:59 Last Admin: 02/25/21 14:09 Dose: 2 gm Documented by: Finasteride (Finasteride 5 Mg Tab) 5 mg PO QAM [facility] Stop: 03/19/21 08:59 Last Admin: 02/25/21 09:13 Dose: 5 mg Documented by: Heparin Sodium (Porcine) (Heparin Sod 5,000 Unit/0.5 Ml Vial) 5,000 units SQ Q12 [facility] Stop: 03/21/21 20:59 Last Admin: 02/25/21 09:13 Dose: 5,000 units Documented by: Hydralazine HCl (Hydralazine 10 Mg Tab) 10 mg PO TID [facility] Stop: 03/25/21 20:59 Last Admin: 02/25/21 14:09 Dose: Not Given Documented by: Ceftriaxone Sodium 2,000 mg/ (Dextrose) 70 mls @ 140 mls/hr IV DAILY@1600 [facility] Stop: 03/01/21 15:59 Last Admin: 02/25/21 15:32 Dose: 140 mls/hr Documented by: Furosemide 10 mg/ Syringe 1 mls @ 4 mls/min IV DAILY [facility] Stop: 03/25/21 17:59 Last Admin: 02/25/21 09:13 Dose: 4 mls/min Documented by: Levothyroxine Sodium (Levothyroxine Sodium 25 Mcg Tablet) 25 mcg PO DAILYBB [facility] Stop: 03/27/21 06:29 Last Admin: 02/25/21 05:37 Dose: 25 mcg Documented by: Lisinopril (Lisinopril 20 Mg Tab) [facility] Stop: 03/27/21 08:59 Last Admin: 02/25/21 09:13 Dose: 20 mg Documented by: Metoprolol Succinate (Metoprolol Succ 25mg Ext Rel Tab) 25 mg PO QPM [facility] Stop: 03/24/21 20:59 Last Admin: 02/24/21 20:32 Dose: 25 mg Documented by: Miconazole Nitrate (Miconazole Nitrate Powder 43 Gm) 1 appln EXT PRN PRN PRN Reason: Affected Skin Folds Stop: 03/26/21 18:21 Last Admin: 02/25/21 13:00 Dose: 1 appln Documented by: Multivitamins/Minerals (Cerovite Adv Formula Tab) 1 tab PO [facility] Stop: 03/19/21 08:59 Last Admin: 02/23/21 08:52 Dose: 1 tab Documented by: Spironolactone (Spironolactone 25 Mg Tab) 25 mg PO [facility] Stop: 03/19/21 08:59 Last Admin: 02/21/21 08:48 Dose: 25 mg Documented by: Tamsulosin HCl (Tamsulosin Hcl 0.4 Mg Cap) 0.4 mg PO [facility] Stop: 03/18/21 22:41 Last Admin: 02/24/21 20:32 Dose: 0.4 mg Documented by:
[2021-02-25] MEDS: TAMSULOSIN HCL 0.4 MG CAP PO SCH (21:46)
[2021-02-25] MEDS: METOPROLOL SUCC 25MG EXT REL TAB PO SCH (21:47)
[2021-02-25] MEDS: ASPIRIN 81 MG ECTAB PO SCH (21:47)
[2021-02-25] MEDS: amLODIPine BESYLATE 5 MG TAB PO SCH (21:47)
[2021-02-26] MEDS: LEVOTHYROXINE SODIUM 25 MCG TABLET PO SCH (05:54)
[2021-02-26 06:54] LABS: BUN Creatinine Ratio 28.9 (10-20); Calcium 8.5 mg/dl (8.5-10.1); Creatinine Clr Calc Pharmacy 32.9 ml/min; Est GFR (African American) 38.9 ml/min; Est GFR (Non-African American) 33.5 ml/min
[2021-02-26 07:42] LABS: Estimated Average Glucose 137 mg/dl; Hemoglobin A1C 6.4 % (4.5-5.6)
[2021-02-26] MEDS: HEPARIN SOD 5,000 UNIT/0.5 ML VIAL SQ SCH ×2 (08:43→21:00)
[2021-02-26] MEDS: DICLOFENAC SOD 1% GEL 100 GM TUBE EXT SCH ×4 (08:43→20:49)
[2021-02-26] MEDS: FUROSEMIDE 20 MG TAB PO SCH (08:43)
[2021-02-26] MEDS: hydrALAZINE 10 MG TAB PO SCH (08:44)
[2021-02-26] MEDS: FINASTERIDE 5 MG TAB PO SCH (08:44)
[2021-02-26] MEDS: lisinopril 20 MG TAB PO SCH (08:45)
[2021-02-26] MEDS ORDERED: lisinopril 20 MG TAB PO SCH (09:00)
[2021-02-26] MEDS: cephALEXin 500 MG CAP PO SCH ×2 (13:47→20:54)
--- NOTE | 2021-02-26 18:04 | Hospitalist Progress Note ---
Date of Service February 26, 2021 Assessment & Plan (1) UTI (urinary tract infection): Was initially started on Zosyn, switched to Rocephin --will transition to cephalexin per ID recommendations, last dose 03/02. Close urology follow-up for his scheduled 3 month cystoscopy surveillance and maintenance BCG treatments as outpatient. To rehab as a transition to home. (2) Gram-negative bacteremia: One blood culture was positive for E coli, same bug as in urine. Complete antibiotic therapy outlined above. Repeat blood cultures show clearance. (3) NATE (acute kidney injury): Likely has CKD but unknown baseline. He is presumably close to this now as he is improved clinically and his creatinine is stable. (4) Hypothyroidism: Subclinical hypothyroidism. As patient is elderly will start very low dose Synthroid and have him followup in the clinic for repeat TFTs in 6-8 weeks. (5) Peripheral neuropathy: Has some mild hypothyroidism-will start low dose Synthroid per plan below. No other reversible cause noted. (6) Hypertension: uncontrolled off his lisinopril and spironolactone. Cont Norvasc and low salt diet. Hydralazine 10mg PO TID. Adding back lisinopril at 50% dose and watch for hyperkalemia. Add back home Lasix in am. Cont to monitor K-cont to hold spironolactone. (7) Fracture, lumbar vertebra, compression: Nontraumatic, patient has no pain. With h/o malignancy, metastatic disease causing fracture was questioned and MRI was offered to assess nature of fracture and acuity, but declined by patient secondary to claustrophobia. Ortho spine saw him and noted his back pain is chronic and unchanged with the film and clinical picture consistent with a chronic compression fracture of L2 most likely. 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 Lopez in Oct 2020. He continues to undergo q3 month cystoscopies and BCG maintenance therapy. Follow-up [facility] Urology as outpatient. (9) Abnormal LFTs: Noted to have abnormal LFTs Has cholelithiasis without any evidence of cholecystitis ultrasound of the liver -did not show any acute cholecystitis but did show changes suggestive of early cirrhosis-outpatient GI follow-up recommended. hepatitis profile-negative Liver functions have been [id number] as outpatient (10) PAD (peripheral artery disease): Extensive atherosclerotic arterial disease with a suspected high-grade stenosis of the infrarenal abdominal aorta is present. There are extensive atheromatous changes within the common femoral and superficial femoral arteries. Patient currently has significant numbness in his feet. Vascular consulted and no surgical intervention recommended. (11) Atrial fibrillation: Heart rate is controlled Continue with metoprolol. Not on any anticoagulation likely secondary to history of hematuria and bladder cancer (12) CHF (congestive heart failure): Chronic, compensated. Restarted daily Lasix. Monitor daily weights. Low salt diet. (13) Pulmonary nodule: Followed by pulmonary clinic. (14) DVT prophylaxis: Heparin Full Code Dispo-to rehab. Awaiting placement. Medically stable for discharge when bed is available. Adriana Morales DO [facility] Hospitalist Admission and Anticipated Discharge Date Admission Date: February 16, 2021 Subjective The patient is an 89-year-old man admitted for UTI, found to have UTI and bacteremia. Peripheral neuropathy and numbness with generalized weakness continues to prevent him from ambulating much at all. Doing well on the levothyroxine Tolerating PO Review of Systems Review of Systems: All systems reviewed & are unremarkable except as noted in Subjective Physical Exam Physical Exam: CONSTITUTIONAL: WNWD, vitals as above, generally well- appearing EYES: normal conjunctivae, no scleral icterus ENT: external ear and nose normal, MMM RESPIRATORY: clear to auscultation bilaterally, no crackles, rales or wheezes, normal respiratory effort CARDIOVASCULAR: regular rate and rhythm, S1 and 2 heard without murmurs, gallops or rubs, no JVD, 2+ edema legs bilaterally GASTROINTESTINAL: soft, nontender, nondistended MUSCULOSKELETAL: generalized weakness, moves all extremities equally, head is normocephalic and atraumatic SKIN: warm and dry NEUROLOGIC: CN 2-12 grossly intact, sensation deficit on bilateral plantar surface of feet, normal cognition, normal speech PSYCHIATRIC: alert cooperative and oriented to person, place and time. Results & Data Results & Data ([facility]) Vital Signs (Past 12 Hours) Vital Signs Temp Pulse Resp BP Pulse Ox 02/26/21 15:39 36.4 C L 57 L 16 154/69 H 97 02/26/21 07:10 36.4 C L 55 L 18 146/68 H 97 Laboratory Results [facility] 02/26/21 05:19 Sodium 137 Potassium 4.0 Chloride 103 Carbon Dioxide 29 BUN 51 H Creatinine 1.77 H Glucose 103 H Calcium 8.5 Medications Administered Current Inpatient Medications Amlodipine Besylate (Amlodipine Besylate 5 Mg Tab) 5 mg PO QPM [facility] Stop: 03/18/21 22:41 Last Admin: 02/25/21 21:47 Dose: 5 mg Documented by: Aspirin (Aspirin 81 Mg Ectab) 81 mg PO HS [facility] Stop: 03/18/21 22:41 Last Admin: 02/25/21 21:47 Dose: 81 mg Documented by: Cephalexin HCl (Cephalexin 500 Mg Cap) 500 mg PO BID [facility] Stop: 03/02/21 22:00 Last Admin: 02/26/21 13:47 Dose: 500 mg Documented by: Diclofenac Sodium (Diclofenac Sod 1% Gel 100 Gm Tube) 2 gm EXT QID [facility] Stop: 03/22/21 16:59 Last Admin: 02/26/21 17:46 Dose: Not Given Documented by: Finasteride (Finasteride 5 Mg Tab) 5 mg PO QAM [facility] Stop: 03/19/21 08:59 Last Admin: 02/26/21 08:44 Dose: 5 mg Documented by: Furosemide (Furosemide 20 Mg Tab) 20 [facility] Stop: 03/28/21 08:59 Last Admin: 02/26/21 08:43 Dose: 20 mg Documented by: Heparin Sodium (Porcine) (Heparin Sod 5,000 Unit/0.5 Ml Vial) 5,000 units SQ Q12 [facility] Stop: 03/21/21 20:59 Last Admin: 02/26/21 08:43 Dose: 5,000 units Documented by: Levothyroxine Sodium (Levothyroxine Sodium 25 Mcg Tablet) 25 mcg PO DAILYBB [facility] Stop: 03/27/21 06:29 Last Admin: 02/26/21 05:54 Dose: 25 mcg Documented by: Lisinopril (Lisinopril 20 Mg Tab) 20 mg PO [facility] Stop: 03/27/21 08:59 Last Admin: 02/26/21 08:45 Dose: 20 mg Documented by: Miconazole Nitrate (Miconazole Nitrate Powder 43 Gm) 1 appln EXT PRN PRN PRN Reason: Affected Skin Folds Stop: 03/26/21 18:21 Last Admin: 02/25/21 13:00 Dose: 1 appln Documented by: Spironolactone (Spironolactone 12.5 Mg Tab) 12.5 mg PO DAILY [facility] Stop: 03/29/21 08:59 Tamsulosin HCl (Tamsulosin Hcl 0.4 Mg Cap) 0.4 mg PO [facility] Stop: 03/18/21 22:41 Last Admin: 02/25/21 21:46 Dose: 0.4 mg Documented by:
[2021-02-26] MEDS: amLODIPine BESYLATE 5 MG TAB PO SCH (20:59)
[2021-02-26] MEDS: ASPIRIN 81 MG ECTAB PO SCH (20:59)
[2021-02-26] MEDS: TAMSULOSIN HCL 0.4 MG CAP PO SCH (21:00)
[2021-02-27] MEDS: LEVOTHYROXINE SODIUM 25 MCG TABLET PO SCH (05:35)
[2021-02-27 06:35] LABS: BUN Creatinine Ratio 26.2 (10-20); Calcium 8.3 mg/dl (8.5-10.1); Creatinine Clr Calc Pharmacy 25.7 ml/min; Est GFR (African American) 28.9 ml/min; Potassium 4.2 mmol/L (3.5-5.1)
[2021-02-27] MEDS: cephALEXin 500 MG CAP PO SCH (08:06)
[2021-02-27] MEDS: FINASTERIDE 5 MG TAB PO SCH (08:07)
[2021-02-27] MEDS: DICLOFENAC SOD 1% GEL 100 GM TUBE EXT SCH ×4 (08:07→20:10)
[2021-02-27] MEDS: HEPARIN SOD 5,000 UNIT/0.5 ML VIAL SQ SCH ×2 (08:08→20:44)
[2021-02-27] MEDS: FUROSEMIDE 20 MG TAB PO SCH (08:08)
[2021-02-27] MEDS: SPIRONOLACTONE 12.5 MG TAB PO SCH (08:13)
[2021-02-27] MEDS ORDERED: lisinopril 40 MG TAB PO SCH (09:00)
[2021-02-27] MEDS: cephALEXin 250 MG CAP PO SCH ×2 (13:32→20:45)
--- NOTE | 2021-02-27 14:43 | Hospitalist Progress Note ---
Date of Service February 27, 2021 Assessment & Plan (1) UTI (urinary tract infection): Was initially started on Zosyn, switched to Rocephin transitioned to cephalexin per ID recommendations, last dose 03/02. Close urology follow-up for his scheduled 3 month cystoscopy surveillance and maintenance BCG treatments as outpatient. To rehab as a transition to home. (2) Gram-negative bacteremia: One blood culture was positive for E coli, same bug as in urine. Complete antibiotic therapy outlined above. Repeat blood cultures show clearance. (3) NATE (acute kidney injury): Likely has CKD but unknown baseline. His baseline is likely around 1.9 and creatinine laurita to 2.26 from 1.7 today, likely a result of reinitiating the lisinopril over the weekend. Per Nephro, will keep dose at 20mg for now. Cont Lasix at current dose. Followup with Nephro prior to discharge for formal recs- note not in yet. (4) Hypothyroidism: Subclinical hypothyroidism. Started low dose Synthroid. As patient is elderly will start very low dose Synthroid and have him followup in the clinic for repeat TFTs in 6-8 weeks. (5) Peripheral neuropathy: Has some mild hypothyroidism, synthroid as above.. No other reversible cause noted. (6) Hypertension: uncontrolled off his lisinopril and spironolactone. Norvasc and hydralazine stopped in setting of peripheral edema. BMP in am. Followup with Nephrology as outpatient. (7) Fracture, lumbar vertebra, compression: Nontraumatic, patient has no pain. With h/o malignancy, metastatic disease causing fracture was questioned and MRI was offered to assess nature of fracture and acuity, but declined by patient secondary to claustrophobia. Ortho spine saw him and noted his back pain is chronic and unchanged with the film and clinical picture consistent with a chronic compression fracture of L2 most like ly. 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 Lopez in Oct 2020. He continues to undergo q3 month cystoscopies and BCG maintenance therapy. Follow-up [facility] Urology as outpatient. (9) Abnormal LFTs: Noted to have abnormal LFTs Has cholelithiasis without any evidence of cholecystitis ultrasound of the liver -did not show any acute cholecystitis but did show changes suggestive of early cirrhosis-outpatient GI follow-up recommended. hepatitis profile-negative Liver functions have been [id number]-[id number]-[id number] as outpatient (10) PAD (peripheral artery disease): Extensive atherosclerotic arterial disease with a suspected high-grade stenosis of the infrarenal abdominal aorta is present. There are extensive atheromatous changes within the common femoral and superficial femoral arteries. Patient currently has significant numbness in his feet. Vascular consulted and no surgical intervention recommended. (11) Atrial fibrillation: Heart rate is controlled Continue with metoprolol. Not on any anticoagulation likely secondary to history of hematuria and bladder cancer (12) CHF (congestive heart failure): Chronic, compensated. Restarted daily Lasix. Monitor daily weights. Low salt diet. (13) Pulmonary nodule: Followed by pulmonary clinic. (14) DVT prophylaxis: Heparin Full Code Dispo-to rehab. Awaiting placement. Medically stable for discharge when bed is available. Adriana Morales DO [facility] Hospitalist Admission and Anticipated Discharge Date Admission Date: February 16, 2021 Subjective The patient is an 89-year-old man admitted for UTI, found to have UTI and bacteremia. Peripheral neuropathy and numbness with generalized weakness continues to prevent him from ambulating much at all. No changes in symptoms Tolerating PO Review of Systems Review of Systems: All systems reviewed & are unremarkable except as noted in Subjective Physical Exam Physical Exam: CONSTITUTIONAL: WNWD, vitals as above, generally well- appearing EYES: normal conjunctivae, no scleral icterus ENT: external ear and nose normal, MMM RESPIRATORY: clear to auscultation bilaterally, no crackles, rales or wheezes, normal respiratory effort CARDIOVASCULAR: regular rate and rhythm, S1 and 2 heard without murmurs, gallops or rubs, no JVD, 2+ edema legs bilaterally GASTROINTESTINAL: soft, nontender, nondistended MUSCULOSKELETAL: generalized weakness, moves all extremities equally, head is normocephalic and atraumatic SKIN: warm and dry NEUROLOGIC: CN 2-12 grossly intact, sensation deficit on bilateral plantar surface of feet, normal cognition, normal speech PSYCHIATRIC: alert cooperative and oriented to person, place and time. Results & Data Results & Data ([facility]) Vital Signs (Past 12 Hours) Vital Signs Temp Pulse Resp BP Pulse Ox 02/27/21 07:20 36.6 C 59 L 14 159/69 H 96
--- NOTE | 2021-02-27 19:44 | Nephrology Progress Note ---
Date of Service February 27, 2021 Assessment & Plan (1) NATE (acute kidney injury): Acute kidney injury on CKD. unknown baseline creatinine (in [facility] [employer]) -- was 1.7 on presentation 02/16, peak at 2.8 on 02/19; up to 2.3 after recently resuming acei attributed at first to Volume overload, on the background of UTI/pyelonephritis/diastolic heart failure/HUDSON > however renal failure worsened w/ one dose of lasix which has been on hold w/ minimal improvement still quite positive overall in terms of fluid balance but several unmeasured voids as well -daily bmp -continue to follow on ceftriaxone> keflex for UTI -home lisinopril 40 mg daily to remain on hold; even resuming 20 mg daily for 2 days led to worse renal function -faint M spike in gamma globulin band >serum immunofixation ordered given L2 compression frx, hypoalbuminemia, dipstick proteinuria; rest of myeloma screen otherwise negative; held off on 24 hr urine immunofixation -Repeat U/A after the completing the course of anti biotics for Proteinuria quantification and screen>> 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 w/ u/s showing bladder wall thickening > for OP urology f/u (3) Hypertension: for symptom mgt primarily ; pt w/ SBP frequently in 150-160s; currently on lasix 20 mg daily and spironolactone 12.5 mg daily; ACEI, CCB on hold Present on Admission?: Yes Admission and Anticipated Discharge Date Admission Date: February 16, 2021 Subjective neuropathy BL feet bothering him; no worse sob or edema Review of Systems Review of Systems: All systems reviewed & are unremarkable except as noted in Subjective Physical Exam Constitutional: well developed, well nourished, + frail appearing and comfortable; no acute distress Eyes: EOM intact bilaterally ENMT: Ears: no external ear abnormality Nose: no external nose abnormality Mouth: + dry oral mucous membranes Neck: no nuchal rigidity Respiratory: normal respiratory effort (on RA) Auscultation: + diminished lung sounds (markedly) Cardiovascular: Rate/Rhythm: regular rate and regular rhythm Extremities: + edema (at most trace BLE) Gastrointestinal (Abdomen): Inspection/Auscultation: normal bowel sounds Percussion/Palpation: abdomen soft; abdomen nontender Musculoskeletal: Extremities: strength 5/5 throughout Skin: no rashes, warm and dry Trauma: + abrasion (R bernal) Psychiatric: Orientation: oriented to person Speech: normal rate/rhythm/volume of speech Affect: euthymic affect Results & Data ([facility]) Vital Signs (Past 12 Hours) Vital Signs Temp Pulse Resp BP Pulse Ox 02/27/21 15:21 36.4 C L 63 18 155/66 H 98 Laboratory Results 02/24/21 06:11 02/27/21 05:22
[2021-02-27] MEDS: TAMSULOSIN HCL 0.4 MG CAP PO SCH (20:42)
[2021-02-27] MEDS: ASPIRIN 81 MG ECTAB PO SCH (20:43)
[2021-02-28] MEDS: LEVOTHYROXINE SODIUM 25 MCG TABLET PO SCH (05:18)
[2021-02-28] MEDS: cephALEXin 250 MG CAP PO SCH ×2 (05:19→13:34)
[2021-02-28] MEDS: FUROSEMIDE 20 MG TAB PO SCH (08:39)
[2021-02-28] MEDS: FINASTERIDE 5 MG TAB PO SCH (08:40)
[2021-02-28] MEDS: SPIRONOLACTONE 12.5 MG TAB PO SCH (08:40)
[2021-02-28] MEDS: DICLOFENAC SOD 1% GEL 100 GM TUBE EXT SCH ×2 (08:41→13:34)
[2021-02-28] MEDS: HEPARIN SOD 5,000 UNIT/0.5 ML VIAL SQ SCH (08:42)
[2021-02-28 10:44] LABS: BUN Creatinine Ratio 28.6 (10-20); Calcium 8.5 mg/dl (8.5-10.1); Creatinine Clr Calc Pharmacy 31.8 ml/min; Est GFR (African American) 37.3 ml/min; Est GFR (Non-African American) 32.2 ml/min; Potassium 4.3 mmol/L (3.5-5.1)
--- NOTE | 2021-02-28 12:00 | Hospitalist Progress Note ---
Date of Service February 28, 2021 Assessment & Plan (1) UTI (urinary tract infection): Was initially started on Zosyn, switched to Rocephin transitioned to cephalexin per ID recommendations, last dose 03/02. Close urology follow-up for his scheduled 3 month cystoscopy surveillance and maintenance BCG treatments as outpatient. To rehab as a transition to home. Denies any urinary symptoms (2) Gram-negative bacteremia: One blood culture was positive for E coli, same bug as in urine. Complete antibiotic therapy outlined above. Repeat blood cultures show clearance. No more fever and no chills and white count has been normalized (3) NATE (acute kidney injury): Likely has CKD but unknown baseline. His baseline is likely around 1.9 His creatinine as of today 02/28/21 is 1.83 We will continue current dose of diuretics (4) Hypothyroidism: Subclinical hypothyroidism. Started low dose Synthroid. As patient is elderly will start very low dose Synthroid and have him followup in the clinic for repeat TFTs in 6-8 weeks. (5) Peripheral neuropathy: Has some mild hypothyroidism, synthroid as above.. No other reversible cause noted. (6) Hypertension: Uncontrolled off his lisinopril and spironolactone. Norvasc and hydralazine stopped in setting of peripheral edema. BMP in am. Followup with Nephrology as outpatient. (7) Fracture, lumbar vertebra, compression: Nontraumatic, patient has no pain. With h/o malignancy, metastatic disease causing fracture was questioned and MRI was offered to assess nature of fracture and acuity, but declined by patient secondary to claustrophobia. Ortho spine saw him and noted his back pain is chronic and unchanged with the film and clinical picture consistent with a chronic compression fracture of L2 most likely. 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 Lopez in Oct 2020. He continues to undergo q3 month cystoscopies and BCG maintenance therapy. Follow-up [facility] as outpatient. (9) Abnormal LFTs: Noted to have abnormal LFTs Has cholelithiasis without any evidence of cholecystitis ultrasound of the liver -did not show any acute cholecystitis but did show changes suggestive of early cirrhosis-outpatient GI follow-up recommended. hepatitis profile-negative Liver functions have been [id number] as outpatient (10) PAD (peripheral artery disease): Extensive atherosclerotic arterial disease with a suspected high-grade stenosis of the infrarenal abdominal aorta is present. There are extensive atheromatous changes within the common femoral and superficial femoral arteries. Patient currently has significant numbness in his feet. Vascular consulted and no surgical intervention recommended. (11) Atrial fibrillation: Heart rate is controlled Continue with metoprolol. Not on any anticoagulation likely secondary to history of hematuria and bladder cancer (12) CHF (congestive heart failure): Chronic, compensated. Restarted daily Lasix. Monitor daily weights. Low salt diet. (13) Pulmonary nodule: Followed by pulmonary clinic. (14) DVT prophylaxis: Heparin Full Code Dispo-to rehab. Awaiting placement. Medically stable for discharge when bed is available. Will be transferred to [facility] this afternoon Admission and Anticipated Discharge Date Admission Date: February 16, 2021 Subjective 02/28/2021 The patient was seen and examined in medical floor He has been feeling a lot better today Denies any symptoms He will be going to [facility] this afternoon Review of Systems Review of Systems: All systems reviewed and are unremarkable except as noted below Musculoskeletal: + back pain (Minimal back pain without radiation) Physical Exam Physical Exam: Lying in bed comfortably Constitutional: well developed, well nourished and + obese; not ill appearing Eyes: PERRL, conjunctivae normal, anicteric sclerae ENMT: external ear and nose normal, oropharynx normal Neck: trachea midline, no thyromegaly Respiratory: no respiratory distress Auscultation: lungs clear to auscultation bilaterally Cardiovascular: Rate/Rhythm: + irregularly irregular Heart Sounds: + murmur (2/6 ESM over precordium) Extremities: + edema (Trace edema bilaterally) Gastrointestinal (Abdomen): Inspection/Auscultation: + abdomen distended and normal bowel sounds Percussion/Palpation: abdomen soft; abdomen nontender (Mildly tender right lower quadrant, palpable large intestine, McBurney's -) Musculoskeletal: No acute arthritis in any joint Neurologic: Alert, awake and oriented x3. No focal sensory and motor deficit appreciated Psychiatric: A+Ox3, euthymic affect Lymphatic: no cervical or axillary lymphadenopathy Results & Data Results & Data ([facility]) Vital Signs (Past 12 Hours) Vital Signs Temp Pulse Resp BP Pulse Ox 02/28/21 07:10 36.7 C 58 L 18 153/72 H 97 Laboratory Results BMP 02/28/21 09:34 Sodium 138 Potassium 4.3 Chloride 105 Carbon Dioxide 30 BUN 52 H Creatinine 1.83 H D Glucose 189 H Calcium 8.5 Medications Administered Current Inpatient Medications Aspirin (Aspirin 81 Mg Ectab) 81 mg PO [facility] Stop: 03/18/21 22:41 Last Admin: 02/27/21 20:43 Dose: 81 mg Documented by: Cephalexin HCl (Cephalexin 250 Mg Cap) 250 mg PO Q8 [facility]; Protocol Stop: 03/12/21 13:59 Last Admin: 02/28/21 05:19 Dose: 250 mg Documented by: Diclofenac Sodium (Diclofenac Sod 1% Gel 100 Gm Tube) 2 gm EXT QID [facility] Stop: 03/22/21 16:59 Last Admin: 02/28/21 08:41 Dose: Not Given Documented by: Finasteride (Finasteride 5 Mg Tab) 5 mg PO QAM [facility] Stop: 03/19/21 08:59 Last Admin: 02/28/21 08:40 Dose: 5 mg Documented by: Furosemide (Furosemide 20 Mg Tab) 20 mg PO QAM [facility] Stop: 03/28/21 08:59 Last Admin: 02/28/21 08:39 Dose: 20 mg Documented by: Heparin Sodium (Porcine) (Heparin Sod 5,000 Unit/0.5 Ml Vial) 5,000 units SQ Q12 [facility] Stop: 03/21/21 20:59 Last Admin: 02/28/21 08:42 Dose: 5,000 units Documented by: Levothyroxine Sodium (Levothyroxine Sodium 25 Mcg Tablet) 25 mcg PO DAILYBB [facility] Stop: 03/27/21 06:29 Last Admin: 02/28/21 05:18 Dose: 25 mcg Documented by: Miconazole Nitrate (Miconazole Nitrate Powder 43 Gm) 1 appln EXT PRN PRN PRN Reason: Affected Skin Folds Stop: 03/26/21 18:21 Last Admin: 02/25/21 13:00 Dose: 1 appln Documented by: Spironolactone (Spironolactone 12.5 Mg Tab) 12.5 mg PO DAILY [facility] Stop: 03/29/21 08:59 Last Admin: 02/28/21 08:40 Dose: 12.5 mg Documented by: Tamsulosin HCl (Tamsulosin Hcl 0.4 Mg Cap) 0.4 mg PO HS [facility] Stop: 03/18/21 22:41 Last Admin: 02/27/21 20:42 Dose: 0.4 mg Documented by:
--- NOTE | 2021-02-28 17:19 | Discharge Summary ---
Date of Service February 28, 2021 Admission HPI Per Admitting Provider Chief Complaint: Right lower abdomen discomfort with nausea, anorexia and weakness for 1 week Primary Care Provider: Nahun Escobar MD He is an 89-year-old male with significant past medical history including urothelial carcinoma of the bladder with ongoing BCG treatment, atrial fibrillation not on any anticoagulation, hypertension, history of CHF with preserved EF, history of colon cancer status post surgery and history of prostatic hypertrophy status post TURP apparently has been complaining of right lower quadrant abdominal discomfort associated with nausea, anorexia and weakness for the last 1 week. He was seen in the clinic today and was sent in with above symptoms for further evaluation and he was noted to have fever of 100.6 degrees in the clinic. He denies any dysuria and frequency, denies any bowel habit changes, any chest pain or palpitation, any fever or chills, any numbness or tingling involving any of the extremities. He was noted to have UA suggestive of infection and his white count was elevated to 22,000. CT scan did not show any intestinal obstruction or any acute appendicitis. He was started with intravenous Zosyn and was admitted to the hospital for continuation of care. Admission Exam Per Admitting Provider Physical Exam: Lying in bed comfortably Constitutional: well developed, well nourished, + ill appearing and + obese Eyes: PERRL, conjunctivae normal, anicteric sclerae ENMT: external ear and nose normal, oropharynx normal Neck: trachea midline, no thyromegaly Respiratory: no respiratory distress Auscultation: lungs clear to auscultation bilaterally Cardiovascular: Rate/Rhythm: + irregularly irregular Heart Sounds: + murmur (2/6 ESM over precordium) Extremities: + edema (Trace edema bilaterally) Gastrointestinal (Abdomen): Inspection/Auscultation: + abdomen distended and normal bowel sounds Percussion/Palpation: + abdomen tender (Mildly tender right lower quadrant, palpable large intestine, McBurney's -) and abdomen soft Musculoskeletal: No acute arthritis in any joint Neurologic: Alert awake and oriented x3. No focal sensory or motor deficit appreciated Psychiatric: A+Ox3, euthymic affect Lymphatic: no cervical or axillary lymphadenopathy Principal Diagnosis Complicated UTI, urothelial carcinoma, gram-negative bacteremia, NATE on CKD, compression fracture of L2 vertebra, atrial fibrillation-not on any anticoagulation Discharge Exam Constitutional well developed, well nourished and + obese; not ill appearing Eyes PERRL, conjunctivae normal, anicteric sclerae ENMT external ear and nose normal, oropharynx normal Neck trachea midline, no thyromegaly Respiratory no respiratory distress Auscultation: lungs clear to auscultation bilaterally Cardiovascular Rate/Rhythm: + irregularly irregular Heart Sounds: + murmur (2/6 ESM over precordium) Extremities: + edema (Trace edema bilaterally) Gastrointestinal (Abdomen) Inspection/Auscultation: + abdomen distended and normal bowel sounds Percussion/Palpation: abdomen soft; abdomen nontender (Mildly tender right lower quadrant, palpable large intestine, McBurney's -) Psychiatric A+Ox3, euthymic affect Lymphatic no cervical or axillary lymphadenopathy Discharge Data Allergies Allergy/AdvReac Type Severity Reaction Status Date / Time No Known Allergies Allergy Unknown Verified 02/16/21 16:19 Consultations 02/16/21 18:31 ED Decision to Admit Stat 02/18/21 07:10 Consult Nephrology Routine 02/20/21 07:14 Consult Orthopedic Surgery Routine 02/22/21 09:30 Consult Vascular Surgery Routine 02/23/21 09:29 Consult Infectious Diseases Routine Ordered Studies 02/16/21 15:45 CT abd pelvis wo con Stat 02/16/21 19:18 US gallbladder Stat 02/17/21 07:45 US renal/blad retro comp Routine 02/20/21 07:42 CT lumbar spine wo con Routine Hospital Course (1) UTI (urinary tract infection): Was initially started on Zosyn, switched to Rocephin transitioned to cephalexin per ID recommendations, last dose 03/02. Close urology follow-up for his scheduled 3 month cystoscopy surveillance and maintenance BCG treatments as outpatient. To rehab as a transition to home. Denies any urinary symptoms (2) Gram-negative bacteremia: One blood culture was positive for E coli, same bug as in urine. Complete antibiotic therapy outlined above. Repeat blood cultures show clearance. No more fever and no chills and white count has been normalized (3) NATE (acute kidney injury): Likely has CKD but unknown baseline. His baseline is likely around 1.9 His creatinine as of today 02/28/21 is 1.83 We will continue current dose of diuretics (4) Hypothyroidism: Subclinical hypothyroidism. Started low dose Synthroid. As patient is elderly will start very low dose Synthroid and have him followup in the clinic for repeat TFTs in 6-8 weeks. (5) Peripheral neuropathy: Has some mild hypothyroidism, synthroid as above.. No other reversible cause noted. (6) Hypertension: Uncontrolled off his lisinopril and spironolactone. Norvasc and hydralazine stopped in setting of peripheral edema. BMP in am. Followup with Nephrology as outpatient. (7) Fracture, lumbar vertebra, compression: Nontraumatic, patient has no pain. With h/o malignancy, metastatic disease causing fracture was questioned and MRI was offered to assess nature of fracture and acuity, but declined by patient secondary to claustrophobia. Ortho spine saw him and noted his back pain is chronic and unchanged with the film and clinical picture consistent with a chronic compression fracture of L2 most likely. 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 Lopez in Oct 2020. He continues to undergo q3 month cystoscopies and BCG maintenance therapy. Follow-up [facility] as outpatient. (9) Abnormal LFTs: Noted to have abnormal LFTs Has cholelithiasis without any evidence of cholecystitis ultrasound of the liver -did not show any acute cholecystitis but did show changes suggestive of early cirrhosis-outpatient GI follow-up recommended. hepatitis profile-negative Liver functions have been [id number] as outpatient (10) PAD (peripheral artery disease): Extensive atherosclerotic arterial disease with a suspected high-grade stenosis of the infrarenal abdominal aorta is present. There are extensive atheromatous changes within the common femoral and superficial femoral arteries. Patient currently has significant numbness in his feet. Vascular consulted and no surgical intervention recommended. (11) Atrial fibrillation: Heart rate is controlled Continue with metoprolol. Not on any anticoagulation likely secondary to history of hematuria and bladder cancer (12) CHF (congestive heart failure): Chronic, compensated. Restarted daily Lasix. Monitor daily weights. Low salt diet. (13) Pulmonary nodule: Followed by pulmonary clinic. (14) DVT prophylaxis: Heparin Full Code Dispo-to rehab. Awaiting placement. Medically stable for discharge when bed is available. Will be transferred to [facility] this afternoon Total Time Total Time Spent Total Time Spent (In Minutes): 35 minutes Total Time Includes: Examination of the Patient, Discharge Planning, Medication Reconciliation and Communication With Other Providers Discharge Plan Discharge Items Patient Disposition: Transfer [facility] Fac Reason For Visit: COMPLICATED UTI, NATE Discharge Diagnosis: Complicated UTI, urothelial carcinoma, gram-negative bacteremia, NATE on CKD, compression fracture of L2 vertebra, atrial fibrillation-not on any anticoagulation Condition on Discharge: Fair Activity: Resume your previous activity Non-emergency contact: Primary Care Provider Call non-emergency contact if: you have any medication questions and your symptoms worsen Follow-up/Referrals: Nahun Escobar MD [Primary Care Provider] - (Please make an appointment with your primary care physician within 7 days following discharge from the facility) Diet: Heart Healthy, Low Potassium (2gm) and Low Sodium (2gm) Addtl Attending Provider Instructions: Please take precaution to avoid any fall Finish your course of antibiotic as advised Try to drink more fluids Keep appointments with your urologist and also the assurance specialist Keep regular follow-up appointment with senior cognos developer for your lung nodule Nephrology recommendation: Nephro discharge recommendations (d/c summary updated): -blood pressure check x 3 weekly and report to nephrology -[facility] weekly x 4 wks to be ordered by nephrology at hospital discharge -follow up appt with Dr Doshi in kidney clinic in [place] in about a month 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 While hospitalized, your heart rate was low despite being tapered off of your Metoprolol. Please continue to avoid this medication going home and followup with Dr. Smith in the [facility] Cardiology office to investigate this further. An ultrasound of the liver did show early signs of cirrhosis. It is prudent to obtain an outpatient referral to a manganese heater to undergo semiannual monitoring of this condition. Extensive atherosclerotic arterial disease with a suspected high-grade stenosis of the infrarenal abdominal aorta is present. Follow-up with vascular surgery periodically may be prudent, especially if you develop symptoms of peripheral arterial disease. Pending Studies at Discharge: No Stand-Alone Forms: [facility] Patient informed of condition?: Yes DNR: No Discharge Level of Care: Skilled Communicable Disease: Yes Discharge Prognosis: Stable Lines: None Urinary Catheter: No Medications and DC Order Prescriptions: New cephalexin 250 mg Capsule 250 mg PO Q8 Qty: 10 RF: 0 spironolactone 25 mg Tablet 12.5 mg PO DAILY Qty: 14 RF: 0 levothyroxine [Synthroid] 25 mcg Tablet 25 mcg PO DAILYBB Qty: 30 RF: 0 diclofenac sodium 1 % gel 2 g topical QID Qty: 40 RF: 0 Continued aspirin [Adult Aspirin Regimen] 81 mg tablet,delayed release (DR/EC) 81 mg PO HS RF: 0 multivitamin Tablet 1 tab PO QAM RF: 0 amlodipine 10 mg Tablet 5 mg PO QPM RF: 0 PreserVision AREDS [id number] Tablet 1 tab PO BID RF: 0 tamsulosin 0.4 mg Capsule 0.4 mg PO HS 30 Days Qty: 30 RF: 3 finasteride [Proscar] 5 mg Tablet 5 mg PO QAM 30 Days Qty: 30 RF: 3 furosemide [Lasix] 20 mg tablet 20 mg PO QAM RF: 0 Discontinued nitrofurantoin monohyd/m-cryst [Macrobid] 100 mg capsule 100 mg PO Q12H 10 Days Qty: 20 RF: 0 metoprolol succinate 100 mg tablet extended release 24 hr 100 mg PO QPM RF: 0 lisinopril 40 mg Tablet 40 mg PO QAM RF: 0 spironolactone 25 mg tablet 25 mg PO QAM RF: 0 Discharge Orders: Discharge Order (Routine); Ordered 02/28/21 Ordered By: Felicia Barrios/Other Patient Handouts: A1C Admission Data Admit Date/Time: 02/16/21 20:31 Attending Provider: Felicia Vázquez Admit Provider: Felicia Vázquez Primary Care Provider: Nahun Escobar Other Providers: Franny Camejo ; Felicia Vázquez ; Constance Sibley ; Jorge Contreras ; Agustín Bowman ; Rob Lee ; Barry Uriarte ; Tj Nettles I. ; Justin Caputo II ; Vidya Howard ; Lionel Bryson ; Adriana Morales Other Interventions: Discharge Summary Assessment (RN) Last Done: 02/28/21 11:49
== END 2021-02-28 15:06 | DRG 690 ==
LOC: ED 13:38 → SUATTDRO 20:31 → 2N 20:31 → 3E 02-26 03:20

== ENCOUNTER 2021-08-18 18:09 | Inpatient (IN) ==
--- NOTE | 2021-08-18 18:25 | Emergency Department Note ---
Impression & Plan Confusion, Weakness, Bradycardia, Respiratory failure ED Provider Note Provider: Lexx Orr MD DATE OF SERVICE: 08/18/2021 CHIEF COMPLAINT: Weakness, shortness of breath, confusion HISTORY OF PRESENT ILLNESS: Patient is a 89-year-old gentleman history of bladder cancer, UTI, sepsis, A. fib not anticoagulation, CHF, hypertension, PAD, hypothyroidism presenting today via ambulance from home with report from EMS the family stated the last several days the patient's had some decline in his mental status. Patient states he is minimal short of breath moving around and EMS found him to be in the high 70s on room air. Patient denies any trauma or pain. Patient states it is 2021 and he believes it is New Year's. Patient denies significant abdominal pain or nausea or vomiting. This is not been reported. Patient not on home oxygen. In discussion with via phone she states that the patient's been sick for about 5 days. Has been forgetting things and having some hallucinations this week. No pain has been reported to the patient's had decreased appetite and has not eaten for 3 days. She reports has had some nausea. She reports that he is not been able to sleep in bed and has been sleeping in recliner is a get short of breath when lying flat. Today evidently the patient's been making some odd comments about family members and believe there was a pet on the floor when there was not. She could not convince him to go to the doctor earlier in the week. She discussed with the doctors office via phone who recommended he come here for evaluation. REVIEW OF SYSTEMS: A total of 10 review of systems was obtained and negative except as stated above in the HPI. PAST MEDICAL HISTORY: As noted above MEDICATIONS: Reviewed home medications SOCIAL HISTORY: Patient denies smoking currently, former smoker, lives at home with PHYSICAL EXAM: GENERAL: alert and oriented to person in no acute distress on stretcher but not oriented to time or well to recent events Head: normocephalic and atraumatic EYES: No injection, discharge or icterus. PERRL NECK: Trachea midline. Supple. ENT: Mucous membranes pink and moist. Pharynx without erythema or exudate. LUNGS: Airway patent. No retractions. Breath sounds with diminished bases. HEART: Irregular bradycardic rate and rhythm. No chest wall tenderness ABDOMEN: Soft and nondistended with some mild mid abdominal tenderness. SKIN: Acyanotic and dry with some cooler extremities. EXTREMITIES: 1+ bilateral lower extremity edema without significant tenderness. NEUROLOGICAL: No focal deficits. No aphasia. No facial droop or slurred speech. Patient believes it is New s and 2021. EK bpm appears to be in atrial fibrillation with slow ventricular response rate of 38. No acute ST segment elevation with a right bundle branch block. QTc 453. CONTINUOUS CARDIAC MONITORING: was ordered and showed a heart rate of 20s-50s bpm in atrial fibrillation Patient's laboratory studies and imaging reviewed. Differential includes Infection, dehydration, metabolic abnormality, hypo/hyperglycemia, electrolyte disturbance, anemia, hypoxia, cardiac sources, intracerebral event, toxicologic, neurologic, as well as other pathologies. IMPRESSION/MEDICAL DECISION MAKING: Patient with a borderline oxygen level here. Somewhat cool extremities make pulse ox a bit unreliable. ABG ordered. Initially placed on some supplemental nasal cannula oxygen. Basic labs ordered including infectious work-up. CT the head to look for possible acute intracranial abnormality are ordered but no significant focal deficits on exam. Patient is generally fatigued and weak. Some nausea reported according to and patient with some mid abdominal tenderness the CT scan to be completed here as well. Question if there is an infectious or metabolic encephalopathy component to his symptoms today. Question if there may be some component of fluid overload as he does appear to have some lower leg edema. Blood work here without significant anemia or leukocytosis. Patient's ABG shows evidence of acidosis and hypercarbia but no hypoxia on [address] on BiPAP to see if this improves his hypercarbia and his mental status some. No evidence of severe electrolyte abnormality. Renal function appears near prior available baseline here. No evidence of transaminitis or thyroid dysfunction. Troponin detectable but not abnormal. Procalcitonin not significantly elevated and thus lower suspicion for severe systemic bacterial infection at this time. Chest x- ray questions atelectasis versus bibasilar consolidations. Patient not requiring significant oxygen support on the BiPAP. We will give a dose of Rocep hin and doxycycline at this point covering broadly. We will dose with some Lasix to see if there is a component of fluid overload. CT scans per radiology here without significant acute pathology in the brain or in the abdomen at this point. Patient again with episodes of bradycardia now sometimes into the 20s. Patient not hypotensive and again lactates not elevated. Not have a active chest pain but he is confused and drowsy. Discussed with cardiology Dr. Gonzáles regarding the case. A dose of atropine was not effective. Patient has been on metoprolol at home with fairly good dose of 100 ER daily. We will hold this. Cardiology recommended trying a small amount of dopamine to see if this improved heart rate. Patient does not appear unstable and require pacing at this point. My discussion with patient's she does report the patient would be DNR/DNI. We will admit the patient for further evaluation work-up of his confusion as well as this bradycardia. DIAGNOSIS: Confusion, hypercarbic respiratory failure, bradycardia DISPOSITION: Hospitalist will evaluate Critical Care I have personally spent 48 minutes of critical care time in the direct management of this patient. This includes bedside care, interpretation of diagnostic studies, and testing, discussion with consultants, patient, and family members, and other required patient management activities. These 48 minutes is in excess of all separately billable procedures. Past Med/Surg History Medical History (Updated 08/18/21 @ 23:18 by Lexx Orr M.D.) Abnormal CT scan of lung Aortoiliac occlusive disease Asymptomatic hypertensive urgency Improved- BP 126/60 at cardio appt 10/07/19 Atrial fibrillation Bladder cancer Bladder mass BPH loc w urin obs/LUTS CHF (congestive heart failure) Clot retention of urine Colon cancer 2002 Diastolic heart failure Dyspnea Gross hematuria Hypertension Pleural effusion on right S/p thoracentesis - 1300ml during admission from 09/19/19- feels secondary to decompensated HF. Pneumonia age 18 Pulmonary hypertension Pulmonary nodule Followed by pulm - incidental finding Surgical History History of cataract extraction History of colonoscopy History of cystoscopy EVACUATION OF BLOOD CLOTS History of transurethral resection of prostate 10/19/19-transurethral resection bladder tumor with resection of bladder neck & prostate. S/P carpal tunnel release R/L S/P colon resection 2002 S/P TKR (total knee replacement) R/L S/P tonsillectomy Family History Family/Other Cancer Heart disease Mother , age 85 of stroke No problems noted. Father , age 69 Myocardial infarction Brother No problems noted. Other Family history non-contributory Social History Smoking Status: Former smoker packs per day: 1; Years Smoked: 20; Number of Years Since Quit: 45; Second Hand Exposure: Yes (SPOUSE SMOKED); Hx Alcohol Use: No Hx Substance Use: No Preferred Language: Yoruba Communication Ability: Effective Newspaper Vendor Required: No Beliefs That Will Affect Care: None marital status: Current Living Situation: Spouse current occupational status: retired current occupation: [employer] How many Children do You have: 9 Feels Safe at Home: Yes Childhood Exposure to Second-Hand Smoke: No caffeine: Yes (a few cups of coffee in the am) Assistive Devices: Walker Allergies Allergies Allergy/AdvReac Type Severity Reaction Status Date / Time No Known Allergies Allergy Unknown Verified 08/18/21 18:27 Home Meds Home Medications Medication Instructions Recorded Confirmed multivitamin 1 tab PO QAM 09/14/19 08/18/21 aspirin 81 mg tablet,delayed 81 mg PO HS 09/30/19 08/18/21 release (Adult Aspirin Regimen) furosemide 20 mg tablet (Lasix) 20 mg PO QAM 10/08/19 08/18/21 levothyroxine 50 mcg tablet 50 mcg PO DAILYBB 08/18/21 08/18/21 lisinopril 40 mg tablet 40 mg PO DAILY 08/18/21 08/18/21 metoprolol succinate 100 mg 100 mg PO DAILY 08/18/21 08/18/21 tablet,extended release 24 hr spironolactone 25 mg tablet 25 mg PO DAILY 08/18/21 08/18/21 Previous Rx's Medication Instructions Recorded finasteride 5 mg tablet (Proscar) 5 mg PO QAM 30 Days #30 tab 09/19/19 Results & Data (ED) Vital Signs Vital Signs - 24 hr 08/18/21 18:16 08/18/21 18:18 08/18/21 18:21 Temperature Temperature Source Pulse Rate 46 L 52 L 50 L Pulse Rate [Left Radial] Pulse Rate from SpO2 Sensor 50 L Pulse Rhythm [Left Radial] Pulse Strength [Left Radial] Respiratory Rate 24 30 H Respiratory Effort / Characteristics Respiratory Depth Shallow Respiratory Pattern Blood Pressure 131/64 131/64 Blood Pressure [Left Radial Artery] Blood Pressure Mean 86 86 Blood Pressure Mean [Left Radial Artery] Blood Pressure Position [Left Radial Artery] Pulse Oximetry 84 L 90 93 Oxygen Delivery Method Room Air Nasal Cannula Oxygen Flow Rate 2 Fraction of Inspired Oxygen Sepsis Recent Fever Within 48 Hours No Sepsis New/Unexplained Change in Mental Status Yes Sepsis Action Taken by Nursing Physician Notified 08/18/21 19:25 08/18/21 19:28 08/18/21 19:30 Temperature 35.5 C L Temperature Source Rectal Pulse Rate 44 L 45 L Pulse Rate [Left Radial] 39 L Pulse Rate from SpO2 Sensor 40 L Pulse Rhythm [Left Radial] Regular Pulse Strength [Left Radial] Normal Respiratory Rate 20 16 16 Respiratory Effort / Characteristics Spontaneous Non-Labored Spontaneous Respiratory Depth Normal Normal Respiratory Pattern Regular Blood Pressure Blood Pressure [Left Radial Artery] 105/52 L Blood Pressure Mean Blood Pressure Mean [Left Radial Artery] 69 Blood Pressure Position [Left Radial Artery] Lying Pulse Oximetry 95 97 84 L Oxygen Delivery Method Nasal Cannula Oxygen Flow Rate 4 Fraction of Inspired Oxygen 30 Sepsis Recent Fever Within 48 Hours Sepsis New/Unexplained Change in Mental Status Sepsis Action Taken by Nursing 08/18/21 20:00 08/18/21 20:30 08/18/21 21:00 Temperature Temperature Source Pulse Rate 0 L 55 L 59 L Pulse Rate [Left Radial] Pulse Rate from SpO2 Sensor 37 L 42 L 56 L Pulse Rhythm [Left Radial] Pulse Strength [Left Radial] Respiratory Rate 18 14 25 H Respiratory Effort / Characteristics Respiratory Depth Respiratory Pattern Blood Pressure 112/63 126/62 Blood Pressure [Left Radial Artery] Blood Pressure Mean 79 83 Blood Pressure Mean [Left Radial Artery] Blood Pressure Position [Left Radial Artery] Pulse Oximetry 77 L 88 L 92 Oxygen Delivery Method BiPAP Oxygen Flow Rate Fraction of Inspired Oxygen Sepsis Recent Fever Within 48 Hours Sepsis New/Unexplained Change in Mental Status Sepsis Action Taken by Nursing 08/18/21 21:46 08/18/21 22:00 08/18/21 22:30 Temperature Temperature Source Pulse Rate 54 L 44 L 39 L Pulse Rate [Left Radial] Pulse Rate from SpO2 Sensor Pulse Rhythm [Left Radial] Pulse Strength [Left Radial] Respiratory Rate 23 24 24 Respiratory Effort / Characteristics Respiratory Depth Respiratory Pattern Blood Pressure Blood Pressure [Left Radial Artery] Blood Pressure Mean Blood Pressure Mean [Left Radial Artery] Blood Pressure Position [Left Radial Artery] Pulse Oximetry 92 92 92 Oxygen Delivery Method BiPAP BiPAP BiPAP Oxygen Flow Rate Fraction of Inspired Oxygen Sepsis Recent Fever Within 48 Hours Sepsis New/Unexplained Change in Mental Status Sepsis Action Taken by Nursing Laboratory Data Result diagrams: 08/18/21 18:49 08/18/21 18:49 Lab Results 08/18/21 08/18/21 08/18/21 Range/Units 18:49 18:49 18:49 WBC 9.12 (4.8-10.8) K/uL RBC 5.04 (4.7-6.1) M/uL Hgb 15.8 (14.0-18.0) g/dL Hct 48.9 (42-52) % MCV 97.0 (80-100) fL MCH 31.3 (25-34) pg MCHC 32.3 (32-36) g/dL RDW Std Deviation 56.7 H (36.4-46.3) fL RDW Coeff of Naeem 16.4 H (11.5-14.5) % Plt Count 152 (130-400) K/uL MPV 11.3 H (7.4-10.4) fL Immature Gran % (Auto) 0.2 % Neut % (Auto) 84.7 % Lymph % (Auto) 6.6 % [place] % (Auto) 7.9 % Eos % (Auto) 0.4 % Baso % (Auto) 0.2 % Neut # (Auto) 7.72 H (1.4-6.5) K/uL Lymph # (Auto) 0.60 L (1.2-3.4) K/uL [place] # (Auto) 0.72 H (0.11-0.59) K/uL Eos # (Auto) 0.04 (0-0.5) K/uL Baso # (Auto) 0.02 (0-0.2) K/uL Immature Gran # (Auto) 0.02 (0.00-0.02) K/uL PT 11.9 (9.0-12.0) Seconds INR 1.2 H (0.9-1.1) ABG pH 7.28 L (7.35-7.45) ABG pCO2 72 H (35-46) mmHg ABG pO2 100 H (80-95) mmHg ABG HCO3 33 H (19-24) mmol/L ABG O2 Saturation 96.6 H (90-95) % ABG Base Excess 3.4 H (-9-1.8) mEq/L [place] Test Pos (Pos) Barometric Pressure 721.2 mm/Hg Oxygen Given 2L Sodium (136-145) mmol/L Potassium (3.5-5.1) mmol/L Chloride (98-107) mmol/L Carbon Dioxide (21-32) mmol/L Anion Gap (3-11) BUN (7-18) mg/dl Creatinine (0.6-1.4) mg/dl Est Cr Clr Drug Dosing ml/min Est GFR ( Amer) ml/min Est GFR (Non-Af Amer) ml/min BUN/Creatinine Ratio (10-20) Glucose (70-99) mg/dl Lactate (0.4-2.0) mmol/L Calcium (8.5-10.1) mg/dl Total Bilirubin (0.2-1) mg/dl AST (15-37) U/L ALT (12-78) Alkaline Phosphatase (45-117) U/L Troponin I (0-0.045) ng/ml Total Protein (6.4-8.2) gm/dl Albumin (3.4-5.0) gm/dl Globulin (2.5-4.0) gm/dl Albumin/Globulin Ratio (0.9-2) Procalcitonin (0-0.5) ng/ml TSH (0.300-4.500) uIu/ml SARS-CoV-2 (PCR) (Negative) Influenza Type A (PCR) (Neg) Influenza Type B (PCR) (Neg) RSV (RT-PCR) (Neg) 08/18/21 08/18/21 08/18/21 Range/Units 18:49 18:49 18:49 WBC (4.8-10.8) K/uL RBC (4.7-6.1) M/uL Hgb (14.0-18.0) g/dL Hct (42-52) % MCV (80-100) fL MCH (25-34) pg MCHC (32-36) g/dL RDW Std Deviation (36.4-46.3) fL RDW Coeff of Naeem (11.5-14.5) % Plt Count (130-400) K/uL MPV (7.4-10.4) fL Immature Gran % (Auto) % Neut % (Auto) % Lymph % (Auto) % [place] % (Auto) % Eos % (Auto) % Baso % (Auto) % Neut # (Auto) (1.4-6.5) K/uL Lymph # (Auto) (1.2-3.4) K/uL [place] # (Auto) (0.11-0.59) K/uL Eos # (Auto) (0-0.5) K/uL Baso # (Auto) (0-0.2) K/uL Immature Gran # (Auto) (0.00-0.02) K/uL PT (9.0-12.0) Seconds INR (0.9-1.1) ABG pH (7.35-7.45) ABG pCO2 (35-46) mmHg ABG pO2 (80-95) mmHg ABG HCO3 (19-24) mmol/L ABG O2 Saturation (90-95) % ABG Base Excess (-9-1.8) mEq/L [place] Test (Pos) Barometric Pressure mm/Hg Oxygen Given Sodium 137 (136-145) mmol/L Potassium 4.7 (3.5-5.1) mmol/L Chloride 101 (98-107) mmol/L Carbon Dioxide 32 (21-32) mmol/L Anion Gap 4.0 (3-11) BUN 41 H (7-18) mg/dl Creatinine 1.73 H (0.6-1.4) mg/dl Est Cr Clr Drug Dosing 32.6 ml/min Est GFR ( Amer) 40.0 ml/min Est GFR (Non-Af Amer) 34.5 ml/min BUN/Creatinine Ratio 23.9 H (10-20) Glucose 104 H (70-99) mg/dl Lactate 1.0 (0.4-2.0) mmol/L Calcium 9.4 (8.5-10.1) mg/dl Total Bilirubin 0.9 (0.2-1) mg/dl AST 14 L (15-37) U/L ALT 25 (12-78) Alkaline Phosphatase 220 H D (45-117) U/L Troponin I 0.026 (0-0.045) ng/ml Total Protein 6.9 (6.4-8.2) gm/dl Albumin 2.8 L (3.4-5.0) gm/dl Globulin 4.1 H (2.5-4.0) gm/dl Albumin/Globulin Ratio 0.7 L (0.9-2) Procalcitonin 0.13 (0-0.5) ng/ml TSH 3.200 (0.300-4.500) uIu/ml SARS-CoV-2 (PCR) (Negative) Influenza Type A (PCR) (Neg) Influenza Type B (PCR) (Neg) RSV (RT-PCR) (Neg) 08/18/21 Range/Units 19:25 WBC (4.8-10.8) K/uL RBC (4.7-6.1) M/uL Hgb (14.0-18.0) g/dL Hct (42-52) % MCV (80-100) fL MCH (25-34) pg MCHC (32-36) g/dL RDW Std Deviation (36.4-46.3) fL RDW Coeff of Naeem (11.5-14.5) % Plt Count (130-400) K/uL MPV (7.4-10.4) fL Immature Gran % (Auto) % Neut % (Auto) % Lymph % (Auto) % [place] % (Auto) % Eos % (Auto) % Baso % (Auto) % Neut # (Auto) (1.4-6.5) K/uL Lymph # (Auto) (1.2-3.4) K/uL [place] # (Auto) (0.11-0.59) K/uL Eos # (Auto) (0-0.5) K/uL Baso # (Auto) (0-0.2) K/uL Immature Gran # (Auto) (0.00-0.02) K/uL PT (9.0-12.0) Seconds INR (0.9-1.1) ABG pH (7.35-7.45) ABG pCO2 (35-46) mmHg ABG pO2 (80-95) mmHg ABG HCO3 (19-24) mmol/L ABG O2 Saturation (90-95) % ABG Base Excess (-9-1.8) mEq/L [place] Test (Pos) Barometric Pressure mm/Hg Oxygen Given Sodium (136-145) mmol/L Potassium (3.5-5.1) mmol/L Chloride (98-107) mmol/L Carbon Dioxide (21-32) mmol/L Anion Gap (3-11) BUN (7-18) mg/dl Creatinine (0.6-1.4) mg/dl Est Cr Clr Drug Dosing ml/min Est GFR ( Amer) ml/min Est GFR (Non-Af Amer) ml/min BUN/Creatinine Ratio (10-20) Glucose (70-99) mg/dl Lactate (0.4-2.0) mmol/L Calcium (8.5-10.1) mg/dl Total Bilirubin (0.2-1) mg/dl AST (15-37) U/L ALT (12-78) Alkaline Phosphatase (45-117) U/L Troponin I (0-0.045) ng/ml Total Protein (6.4-8.2) gm/dl Albumin (3.4-5.0) gm/dl Globulin (2.5-4.0) gm/dl Albumin/Globulin Ratio (0.9-2) Procalcitonin (0-0.5) ng/ml TSH (0.300-4.500) uIu/ml SARS-CoV-2 (PCR) NEGATIVE (Negative) Influenza Type A (PCR) Negative (Neg) Influenza Type B (PCR) Negative (Neg) RSV (RT-PCR) Negative (Neg) Administered Medications Dopamine HCl/Dextrose (Dopamine / D5w) 400 mg in 250 mls @ 8.381 mls/hr IV .Q24H [facility]; Protocol Stop: 09/17/21 22:29 Last Admin: 08/18/21 22:53 Dose: 4.5 mcg/kg/min, 15.1 mls/hr Documented by: [id number] Discontinued Medications Atropine Sulfate (Atropine Sulfate 0.1 Mg/Ml 10ml Syr) 0.5 mg IV NOW STA Stop: 08/18/21 20:36 Last Admin: 08/18/21 20:58 Dose: 0.5 mg Documented by: [id number] Furosemide (Furosemide Inj 20 Mg/2 Ml Vial) 20 mg IV ONE ONE Stop: 08/18/21 22:28 Last Admin: 08/18/21 23:45 Dose: 20 mg Documented by: [id number] Ceftriaxone Sodium (Rocephin) 2,000 mg in 70 mls @ 140 mls/hr IV NOW STA Stop: 08/18/21 20:59 Last Admin: 08/18/21 21:00 Dose: 140 mls/hr Documented by: [id number] Doxycycline Hyclate 100 mg/ (Dextrose) 110 mls @ 50 mls/hr IV NOW STA Stop: 08/18/21 22:41 Last Admin: 08/18/21 23:51 Dose: 50 mls/hr Documented by: [id number] Miscellaneous (Stat Iv Infusion Titration Per Protocol) 1 ea N/A NOW STA Stop: 08/18/21 22:30 Last Admin: 08/18/21 23:51 Dose: 1 ea Documented by: [id number] Imaging Data Radiologist's Impression: Chest X-Ray 08/18/21 18:21 XR chest 1V portable CLINICAL HISTORY: weakness, sob TECHNIQUE: Single frontal radiograph of the chest was obtained. Comparison: Comparison is made to chest one view 02/16/2021 FINDINGS: No lines and tubes are seen. Cardiomegaly is noted. Bilateral lower lung predominant airspace opacities are seen. Previously noted 11 mm right pulmonary nodule is not seen on today's exam. There is a small right pleural effusion and a possible left effusion as well. IMPRESSION: Bilateral lower lung predominant airspace opacities which may represent atelectasis, pneumonia, and/or aspiration. Small right and possible left pleural effusions. ACT 112: Negative or not required by law. Electronically signed by: Manny Cole M.D. 08/18/2021 7:[address] 08/18/21 18:21 CT head/brain wo con CLINICAL HISTORY: confusion . Weakness. COMPARISON STUDY: No previous studies for comparison. CT DOSE: TECHNIQUE: Standard CT of the Brain was performed without IV contrast. A dose lowering technique was utilized adhering to the principles of ALARA. FINDINGS: Extraaxial space: There is no evidence for subdural hematoma. There are no extra-axial fluid collections. Ventricles and cisterns: The ventricles are mildly dilated bilaterally. There is no evidence for midline shift or mass effect. Parenchyma: There is no subarachnoid or intraparenchymal hemorrhage. There is no evidence for an acute infarct or cerebral edema. There is mild cerebral cortical atrophy and decreased attenuation in the periventricular white matter representing remote small vessel disease. There are no gross mass lesions. Osseous structures: There is no evidence for an acute fracture. The visualized paranasal sinuses are clear. The mastoid air cells are clear bilaterally. Soft tissues: There is no evidence for focal soft tissue swelling. IMPRESSION: No acute intracerebral pathology. Mild cerebral cortical atrophy and remote small vessel disease. ACT 112: Negative or not required by law. Electronically signed by: Franco Aleman M.D. 08/18/2021 9:58 PM Abdomen/Pelvis CT 08/18/21 18:56 CT abd pelvis wo con CLINICAL HISTORY: weak, nausea, confusion, abdominal tenderness COMPARISON STUDY: 02/16/2021 CT DOSE: 2771.86 mGy.cm TECHNIQUE: Standard CT of the Abdomen and Pelvis was performed without IV contr ast. The patient did not receive oral contrast. A dose lowering technique was utilized adhering to the principles of ALARA. FINDINGS: Lung base: Compared to previous examination, there is again a small to moderate size right pleural effusion a portion of which is loculated along the right lateral chest wall. Compressive atelectasis/collapse of the right lower lobe is again seen. There is minimal pleural thickening at the left lung base with no evidence for pleural effusion. The heart is mildly to moderately enlarged with coronary artery calcification present. Abdominal cavity: There is no evidence for abdominal mass or adenopathy. There is again minimal fluid seen extending down the right paracolic gutter.. Liver: The liver is homogeneous in attenuation on these limited noncontrast images.. Spleen: The spleen is homogeneous in attenuation on these limited noncontrast images. Pancreas: The pancreas is homogeneous in attenuation on these limited noncontrast images. Gall Bladder: The gallbladder is again distended with cholelithiasis. There is no CT evidence for acute cholecystitis. Adrenal glands: The adrenal glands are normal in size and attenuation on these limited noncontrast images. Kidneys: The kidneys are homogeneous in attenuation on these limited noncontrast images. There is no evidence for gross renal mass, calculus or hydronephrosis bilaterally. There is again bilateral perinephric stranding. Bowel: The patient is again status post partial sigmoid resection with end-to-end anastomosis. There is mild fecal impaction and mild fecal stasis the rectosigmoid colon with no evidence for obstruction. The remaining bowel loops are normally placed within the abdomen and pelvis without evidence for dilatation or obstruction. There is no evidence for mass lesion. There is mild sigmoid diverticulosis without evidence for diverticulitis. There are no inflammatory changes present. There is no evidence for free air. The appendix is again mildly thickened and unchanged in appearance. Bladder: The bladder is again contracted with diffuse thickening of bladder wall. : There is no evidence for pelvic mass or adenopathy. Vasculature: Marked atherosclerotic calcification and stenosis again seen involving the infrarenal abdominal aorta which is unchanged. Osseous structures: Extensive degenerative changes are again seen within the lumbar spine. IMPRESSION: 1. Compared to the previous examination, there is no significant interval change identified. 2. There is again right pleural effusion and right basilar atelectasis. 3. There is again cholelithiasis without evidence for acute cholecystitis by CT. 4. There is mild fecal impaction and fecal stasis within the rectosigmoid colon without evidence for obstruction. 5. Mild diverticulosis without evidence for diverticulitis. 6. Additional nonacute findings are delineated above. ACT 112: Negative or not required by law. Electronically signed by: Franco Aleman M.D. 08/18/2021 10:08 PM Discharge Plan Visit Data Chief Complaint: Illness Stated Complaint: Illness ED Provider: Lexx Orr Discharge Problem: Confusion, Weakness, Bradycardia, Respiratory failure Patient Disposition: Being Evaluated by Hospitalist Forms Stand Alone Forms: My [facility] [employer] Prescriptions Prescriptions: No Action aspirin [Adult Aspirin Regimen] 81 mg tablet,delayed release (DR/EC) 81 mg PO HS RF: 0 multivitamin Tablet 1 tab PO QAM RF: 0 finasteride [Proscar] 5 mg Tablet 5 mg PO QAM 30 Days Qty: 30 RF: 3 furosemide [Lasix] 20 mg tablet 20 mg PO QAM RF: 0 levothyroxine 50 mcg tablet 50 mcg PO DAILYBB RF: 0 metoprolol succinate 100 mg tablet extended release 24 hr 100 mg PO DAILY RF: 0 lisinopril 40 mg tablet 40 mg PO DAILY RF: 0 spironolactone 25 mg tablet 25 mg PO DAILY RF: 0 Referrals Referrals: Nahun Escobar MD [Primary Care Provider] - Discharge Problem: Respiratory failure Qualifiers: Chronicity: acute Respiratory failure complication: hypercapnia Qualified Code(s): J96.02 - Acute respiratory failure with hypercapnia
[2021-08-18 19:01] LABS: Basophils # (auto) 0.02 K/uL (0-0.2); Basophils % (auto) 0.2 %; Eosinophils # (auto) 0.04 K/uL (0-0.5); Eosinophils % (auto) 0.4 %; Hematocrit (blood only) 48.9 % (42-52); Hemoglobin 15.8 g/dL (14.0-18.0); Immature Granulocytes # (auto) 0.02 K/uL (0.00-0.02); Immature Granulocytes % (auto) 0.2 %; Lymphocytes % (auto) 6.6 %; Mean Corpuscular Hemoglobin 31.3 pg (25-34); Mean Corpuscular Hgb Conc 32.3 g/dL (32-36); Mean Platelet Volume 11.3 fL (7.4-10.4); Monocytes # (auto) 0.72 K/uL (0.11-0.59); Monocytes % (auto) 7.9 %; Neutrophils # (auto) 7.72 K/uL (1.4-6.5); Neutrophils % (auto) 84.7 %; Platelet Count 152 K/uL (130-400); RDW Coefficient of Variation 16.4 % (11.5-14.5); RDW Standard Deviation 56.7 fL (36.4-46.3); Red Blood Count 5.04 M/uL (4.7-6.1); White Blood Count 9.12 K/uL (4.8-10.8)
[2021-08-18 19:03] LABS: Base Excess ABG 3.4 mEq/L (-9-1.8); HCO3 ABG 33 mmol/L (19-24); Oxygen Saturation ABG 96.6 % (90-95); PCO2 ABG 72 mmHg (35-46); PO2 ABG 100 mmHg (80-95); pH ABG 7.28 (7.35-7.45)
[2021-08-18 19:04] LABS: Allen Test Pos (Pos)
[2021-08-18 19:10] LABS: INR 1.2 (0.9-1.1); Prothrombin Time 11.9 Seconds (9.0-12.0)
[2021-08-18 19:22] LABS: Albumin Level 2.8 gm/dl (3.4-5.0); BUN Creatinine Ratio 23.9 (10-20); Calcium 9.4 mg/dl (8.5-10.1); Creatinine Clr Calc Pharmacy 32.6 ml/min; Est GFR (Non-African American) 34.5 ml/min; Potassium 4.7 mmol/L (3.5-5.1)
[2021-08-18 19:33] LABS: Albumin Globulin Ratio 0.7 (0.9-2); Bilirubin,Total 0.9 mg/dl (0.2-1); Globulin 4.1 gm/dl (2.5-4.0); Thyroid Stimulating Hormone 3.2 uIu/ml (0.300-4.500); Total Protein 6.9 gm/dl (6.4-8.2); Troponin I 0.026 ng/ml (0-0.045)
--- NOTE | 2021-08-18 19:43 | XRay Report ---
XR chest 1V portable CLINICAL HISTORY: weakness, sob TECHNIQUE: Single frontal radiograph of the chest was obtained. Comparison: Comparison is made to chest one view 02/16/2021 FINDINGS: No lines and tubes are seen. Cardiomegaly is noted. Bilateral lower lung predominant airspace opaciti es are seen. Previously noted 11 mm right pulmonary nodule is not seen on today's exam. There is a sm all right pleural effusion and a possible left effusion as well. IMPRESSION: Bilateral lower lung predominant airspace opacities which may represent atelectasis, pneumonia, and/o r aspiration. Small right and possible left pleural effusions. ACT 112: Negative or not required by law. Electronically signed by: Manny Cole M.D. 08/18/2021 7:41 PM
[2021-08-18 20:13] LABS: Influenza A virus by PCR Negative (Neg); Influenza B virus by PCR Negative (Neg); RSV by PCR Negative (Neg); SARS CoV2 RNA(COVID-19) InHosp NEGATIVE (Negative)
[2021-08-18] MEDS ORDERED: cefTRIAXone SODIUM 2,000 MG/70 ML BAG IV STA (20:30)
[2021-08-18] MEDS ORDERED: DOXYCYCLINE HYCLATE 100 MG in DEXTROSE 5% 100 ML IV STA (20:30)
[2021-08-18] MEDS ORDERED: ATROPINE SULFATE 0.1 MG/ML 10ML SYR IV STA (20:35)
--- NOTE | 2021-08-18 21:59 | CT Scan Report ---
CT head/brain wo con CLINICAL HISTORY: confusion . Weakness. COMPARISON STUDY: No previous studies for comparison. CT DOSE: TECHNIQUE: Standard CT of the Brain was performed without IV contrast. A dose lowering technique was utilized adhering to the principles of ALARA. FINDINGS: Extraaxial space: There is no evidence for subdural hematoma. There are no extra-axial fluid collecti ons. Ventricles and cisterns: The ventricles are mildly dilated bilaterally. There is no evidence for mid line shift or mass effect. Parenchyma: There is no subarachnoid or intraparenchymal hemorrhage. There is no evidence for an acu te infarct or cerebral edema. There is mild cerebral cortical atrophy and decreased attenuation in th e periventricular white matter representing remote small vessel disease. There are no gross mass lesi ons. Osseous structures: There is no evidence for an acute fracture. The visualized paranasal sinuses are clear. The mastoid air cells are clear bilaterally. Soft tissues: There is no evidence for focal soft tissue swelling. IMPRESSION: No acute intracerebral pathology. Mild cerebral cortical atrophy and remote small vessel disease. ACT 112: Negative or not required by law. Electronically signed by: Franco Aleman M.D. 08/18/2021 9:58 PM
--- NOTE | 2021-08-18 22:10 | CT Scan Report ---
CT abd pelvis wo con CLINICAL HISTORY: weak, nausea, confusion, abdominal tenderness COMPARISON STUDY: 02/16/2021 CT DOSE: 2771.86 mGy.cm TECHNIQUE: Standard CT of the Abdomen and Pelvis was performed without IV contrast. The patient did not receive oral contrast. A dose lowering technique was utilized adhering to the principles of DERECK Partida. FINDINGS: Lung base: Compared to previous examination, there is again a small to moderate size right pleural e ffusion a portion of which is loculated along the right lateral chest wall. Compressive atelectasis/c ollapse of the right lower lobe is again seen. There is minimal pleural thickening at the left lung b ase with no evidence for pleural effusion. The heart is mildly to moderately enlarged with coronary a rtery calcification present. Abdominal cavity: There is no evidence for abdominal mass or adenopathy. There is again minimal fluid seen extending down the right paracolic gutter.. Liver: The liver is homogeneous in attenuation on these limited noncontrast images.. Spleen: The spleen is homogeneous in attenuation on these limited noncontrast images. Pancreas: The pancreas is homogeneous in attenuation on these limited noncontrast images. Gall Bladder: The gallbladder is again distended with cholelithiasis. There is no CT evidence for acu te cholecystitis. Adrenal glands: The adrenal glands are normal in size and attenuation on these limited noncontrast im ages. Kidneys: The kidneys are homogeneous in attenuation on these limited noncontrast images. There is no evidence for gross renal mass, calculus or hydronephrosis bilaterally. There is again bilateral perin ephric stranding. Bowel: The patient is again status post partial sigmoid resection with end-to-end anastomosis. There is mild fecal impaction and mild fecal stasis the rectosigmoid colon with no evidence for obstruction . The remaining bowel loops are normally placed within the abdomen and pelvis without evidence for di latation or obstruction. There is no evidence for mass lesion. There is mild sigmoid diverticulosis w ithout evidence for diverticulitis. There are no inflammatory changes present. There is no evidence f or free air. The appendix is again mildly thickened and unchanged in appearance. Bladder: The bladder is again contracted with diffuse thickening of bladder wall. : There is no evidence for pelvic mass or adenopathy. Vasculature: Marked atherosclerotic calcification and stenosis again seen involving the infrarenal ab dominal aorta which is unchanged. Osseous structures: Extensive degenerative changes are again seen within the lumbar spine. IMPRESSION: 1. Compared to the previous examination, there is no significant interval change identified. 2. There is again right pleural effusion and right basilar atelectasis. 3. There is again cholelithiasis without evidence for acute cholecystitis by CT. 4. There is mild fecal impaction and fecal stasis within the rectosigmoid colon without evidence for obstruction. 5. Mild diverticulosis without evidence for diverticulitis. 6. Additional nonacute findings are delineated above. ACT 112: Negative or not required by law. Electronically signed by: Franco Aleman M.D. 08/18/2021 10:08 PM
[2021-08-18] MEDS ORDERED: FUROSEMIDE INJ 20 MG/2 ML VIAL IV ONE (22:27)
[2021-08-18] MEDS ORDERED: STAT IV Infusion **Titration per Protocol STA (22:29)
[2021-08-18] MEDS: DOPamine / D5W 400 MG/250 ML BAG IV SCH (22:53)
[2021-08-19 00:43] LABS: Appearance Urine Cloudy (Clear); Bacteria Urine Automated Negative (Negative); Bilirubin Urine 1+ (Negative); Blood Urine Negative (Negative); Color Urine Dark Yellow; Glucose Urine UA Negative (Negative); Ketones Urine Trace (Negative); Leukocyte Esterase Urine 2+ (Negative); Nitrite Urine Positive (Negative); Protein Urine 2+ (Negative); Specific Gravity Urine 1.024 (1.000-1.030); Urobilinogen Urine Positive (Negative); WBC Urine Automated >30 /hpf (0-5)
[2021-08-19 01:18] LABS: RBC Urine Automated 0-4 /hpf (0-4)
[2021-08-19] MEDS ORDERED: CONSULT PHARMACY STA (02:16)
[2021-08-19] MEDS ORDERED: CEFEPIME 2,000 MG in SYRINGE 0 ML IV SCH (02:16)
[2021-08-19] MEDS ORDERED: OLANZapine 10 MG/2.1 ML SDV IM STA (03:05)
[2021-08-19] MEDS ORDERED: ACETAMINOPHEN 325 MG TAB PO PRN (04:18)
[2021-08-19] MEDS ORDERED: NITROGLYCERIN SL 0.4 MG/TAB TAB SL PRN (04:18)
--- NOTE | 2021-08-19 05:00 | History and Physical Report ---
DATE OF ADMISSION: 08/19/2021. CHIEF COMPLAINT: Altered mental status. 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 As per the ER, the patient is confused for the last several days. Initially declined at home to come to the hospital. Finally called an ambulance and brought him to the hospital. The patient reports some nausea and some dizziness. Currently alert and awake, on BiPAP. Denies any pain. He says he is feeling okay. Denies any chest pain or cough. Denies any fever, denies any abdominal pain. He is oriented to name, could tell his date of , could not tell today's date or the place he is in. The patient was found to have bradycardia in the ER, heart rate was going into 20s. ER physician talked to cardiology and recommended dopamine drip as atropine did not help. To hold his home metoprolol. His ABG showed pH of 7.28 and pCO2 of 72. He was started on BiPAP, but is not requiring much oxygen. Urinalysis positive for UTI. COVID is negative. Able to call today morning. As per since about a week patient is confused. nauseous. Not eating. Usually ambulates with walker but yesterday whole day he sat on the chair. Her grand daughter told her that he is talking to people who are not there. Before these his mental status was fine.As per they discussed about code status though it is not written and as per patient wanted to be DNR/DNI. ALLERGIES: No known drug allergies. PAST MEDICAL HISTORY: As mentioned above. 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 MEDICATIONS: The patient is on aspirin 81 mg p.o. daily, finasteride 5 mg p.o. a.m., Lasix 20 mg p.o. a.m., levothyroxine 50 mcg p.o. daily, lisinopril 40 mg p.o. daily, metoprolol succinate 200 mg p.o. daily, multivitamin 1 tablet p.o. daily, spironolactone 25 mg p.o. daily. FAMILY HISTORY: Significant for brother has arthritis, mother has arthritis and stroke, father has ID, son has spina bifida. SOCIAL HISTORY: , lives with . Former smoker, quit in 1973. Smoked 1 pack a day for 20 years. Occasional cigar. Alcohol, few beers a month. No drug use. REVIEW OF SYSTEMS: As per HPI. Could not get complete review of systems as the patient is somewhat confused. PHYSICAL EXAMINATION: VITAL SIGNS: Temperature 35.5, pulse 74, respiratory rate 21, blood pressure 159/91, and oxygen 93% on BiPAP. HEENT: Pupils equal, round and reactive to light. NECK: No JVD. No masses. CARDIOVASCULAR: S1 and S2 heard, regular rate and rhythm. No murmur, no gallop. RESPIRATORY SYSTEM: Normal AP diameter. No accessory muscle use. No wheezing, no crackles. ABDOMEN: Soft, bowel sounds present, nontender, no distention. CENTRAL NERVOUS SYSTEM: Alert and awake, oriented to name only, can tell his date of . Speech is clear. No facial droop seen. Moves extremities. EXTREMITIES: No edema, no erythema seen. LABORATORY DATA: WBC 9.1, hemoglobin 15.8, hematocrit 48.9, platelets 152. PT 11.9, INR 1.2. ABG, pH of 7.28, pCO2 of 72, pO2 of 100, bicarbonate 33, oxygen 96% on 2 liters. Sodium 137, potassium 4.7, chloride 101, bicarbonate 32, BUN 41, creatinine 1.7, serum glucose 104, lactate 1, calcium 9.4, total bilirubin 0.9, AST 14, ALT 25, alkaline phosphatase 220. Troponin I of 0.02. Procalcitonin 0.13. TSH is 3.2. Urinalysis positive for nitrite and +2 leukocyte esterase.positive. SARS-CoV-2 PCR negative. Influenza A and B negative. RSV PCR negative. IMAGING DATA: CT of the abdomen and pelvis without contrast, compared to previous exams there was no significant interval change identified. Again, right pleural effusion, right basilar atelectasis, cholelithiasis without evidence of acute cholecystitis, mild fecal impaction and fecal stasis within the rectosigmoid colon without evidence for obstruction. Mild diverticulosis without evidence of diverticulitis. CT of the head, no acute intracranial abnormalities. Chest x-ray, bilateral lower lung predominant airspace opacities, which may represent atelectasis, pneumonia and/or aspiration. Small right and possible left pleural effusions. EKG: Shows idioventricular rhythm with premature supraventricular complexes and bigeminy with a rate of 38 and right bundle branch block. ASSESSMENT AND PLAN: This is an 89-year-old male who presents with confusion and found to have bradycardia and urinary tract infection, 1.altered mental status, possibly secondary to urinary tract infection, possibly secondary to bradycardia,and co2 retention,Possible sepsis from questionable pneumonia and UTI, empiric antibiotics, cefepime and doxycycline. Follow the cultures and also he has CO2 retention, possibly causing his confusion, etiology unclear for CO2 retention. Currently on BiPAP, not requiring much oxygen. Will follow the repeat ABG. ER spoke with cardiology for bradycardia after starting on dopamine drip, which will be continued. Follow the serial enzymes, echocardiogram, and closely monitor in tele floor. Also, consult pulmonary for CO2 retention. Continue BiPAP for now.also Carlos rubio as temp low. 2 History of diastolic congestive heart failure. Received a dose of IV Lasix in the ER. Will hold home Lasix, diuretics for now. Also, holding home metoprolol for bradycardia and lisinopril also. 3. Acute kidney injury on chronic kidney disease stage 3: Baseline creatinine of 1.3-1.4, presently with creatinine of 1.7. Holding the diuretics and lisinopril. Monitor the labs in the a.m. 4. History of hypertension: Currently holding lisinopril. Currently on dopamine drop and holding lisinopril and metoprolol. Will monitor the blood pressure. 5. Hypothyroidism. Continue Synthroid.TSH ok. 6. History of benign prostatic hypertrophy: on Proscar. 7. History of urothelial carcinoma of the bladder: s/p HCG and BCG treatment. 8. History of atrial fibrillation: Not on any anticoagulation. Currently requiring dopamine drip, holding metoprolol because of bradycardia, possible tachybrady syndrome.Cardiology consulted. 9. History of colon cancer, status post surgery in 2002.. 10. Deep venous thrombosis prophylaxis: Heparin subcutaneously. DISPOSITION: Closely monitor in the tele floor. CODE STATUS: DNR/DNI as per the discussion with the . PT, OT prior to discharge. Social service to help with discharge planning. Job ID: [id number] MTDD
[2021-08-19 05:33] LABS: Basophils # (auto) 0.04 K/uL (0-0.2); Basophils % (auto) 0.4 %; Eosinophils # (auto) 0.09 K/uL (0-0.5); Eosinophils % (auto) 0.8 %; Hematocrit (blood only) 50.4 % (42-52); Hemoglobin 16.4 g/dL (14.0-18.0); Immature Granulocytes # (auto) 0.03 K/uL (0.00-0.02); Immature Granulocytes % (auto) 0.3 %; Lymphocytes # (auto) 0.47 K/uL (1.2-3.4); Lymphocytes % (auto) 4.4 %; Mean Corpuscular Hemoglobin 31.4 pg (25-34); Mean Corpuscular Hgb Conc 32.5 g/dL (32-36); Mean Corpuscular Volume 96.4 fL (80-100); Mean Platelet Volume 11.1 fL (7.4-10.4); Monocytes # (auto) 0.74 K/uL (0.11-0.59); Monocytes % (auto) 6.9 %; Neutrophils # (auto) 9.33 K/uL (1.4-6.5); Neutrophils % (auto) 87.2 %; Platelet Count 167 K/uL (130-400); RDW Coefficient of Variation 16.2 % (11.5-14.5); RDW Standard Deviation 56.3 fL (36.4-46.3); Red Blood Count 5.23 M/uL (4.7-6.1)
[2021-08-19 05:39] LABS: Base Excess ABG 3.8 mEq/L (-9-1.8); HCO3 ABG 30 mmol/L (19-24); Oxygen Saturation ABG 94.1 % (90-95); PCO2 ABG 50 mmHg (35-46); PO2 ABG 66 mmHg (80-95)
[2021-08-19 05:45] LABS: Allen Test Pos (Pos)
[2021-08-19 06:13] LABS: BUN Creatinine Ratio 23.7 (10-20); Calcium 9.6 mg/dl (8.5-10.1); Creatinine Clr Calc Pharmacy 28.7 ml/min; Est GFR (African American) 34.2 ml/min; Est GFR (Non-African American) 29.5 ml/min; Troponin I 0.035 ng/ml (0-0.045)
[2021-08-19 07:23] LABS: Potassium 4.8 mmol/L (3.5-5.1)
[2021-08-19] MEDS: LEVOTHYROXINE SODIUM 50 MCG TABLET PO SCH (07:32)
[2021-08-19] MEDS ORDERED: LACTULOSE SYRUP 20 GM/30 ML UDC PO ONE (08:00)
[2021-08-19] MEDS ORDERED: bisacodyL 10 MG SUPP PR ONE (08:00)
[2021-08-19] MEDS ORDERED: FUROSEMIDE 20 MG TAB PO SCH (09:00)
[2021-08-19] MEDS: MULTIVITAMIN TAB PO SCH (09:22)
[2021-08-19] MEDS: DOXYCYCLINE HYCLATE 100 MG in DEXTROSE 5% 100 ML IV SCH ×2 (09:22→20:46)
[2021-08-19] MEDS: HEPARIN SOD 5,000 UNIT/0.5 ML VIAL SQ SCH ×2 (09:22→20:47)
[2021-08-19] MEDS: FUROSEMIDE 20 MG TAB PO SCH (09:22)
[2021-08-19] MEDS: FINASTERIDE 5 MG TAB PO SCH (09:22)
--- NOTE | 2021-08-19 09:31 | Pulmonary Consultation ---
Date of Consultation August 19, 2021 Assessment & Plan (1) Metabolic encephalopathy: (2) Acute respiratory failure with hypercapnia: (3) Abnormal chest CT: --Acute hypercapnic respiratory failure Could be multifactorial in the patient's case He had bradycardic episode which might lead to altered mental status and decreased respiratory drive Patient is not on any medications which will depress his respiratory rate He did respond well to BiPAP Would recommend continue with BiPAP nightly and as needed shortness of breath --Abnormal CT Patient seems to have rounded atelectasis of the right lower lobe He had pleural effusion in the past which was transudate if Patient follows up with pulmonology as an outpatient. No acute intervention needed on this admission Plan: Try to keep O2 saturation between 88-92% Do not overextended the patient BiPAP nightly and as needed shortness of breath Can repeat ABG tomorrow to see if the patient is still hypercapnic. If he is still hypercapnic then consideration of trilogy can be done or patient can have polysomnography as an outpatient. Pulmonary will continue to follow. Please note the above document was generated using voice recognition software. It may contain grammatical, syntax or spelling errors.Any formal questions or concerns about the content, text or information contained within the body of this dictation should be directly addressed to the provider for clarification. History of Present Illness Attending Physician: Thom Tinoco MD History of Present Illness 89-year-old male presents to the hospital as he had was confused since last couple of days. Past medical history: Hypothyroidism, diastolic CHF, CKD stage II, A. fib, hypertension, glaucoma In the ED patient was found to be bradycardic with heart rates going into the 20s. Atropine was given to the patient but it did not help. He was started on dopamine. Patient also had an ABG done which showed a pH of 7.28 and PCO2 of 72. He was started on BiPAP Pulmonary consulted for hypercapnia At the time of examination patient was on 1 L nasal cannula saturating 94% I went down to half a liter he was still saturating 93-94% He denied any chest pain, no headache, no nausea, no vomiting He was asking for food. He was on low-dose dopamine. His heart rate was in the mid to high 50s. Blood pressure map was in the high 60s. Patient did take metoprolol yesterday. Allergies Allergy/AdvReac Type Severity Reaction Status Date / Time No Known Allergies Allergy Unknown Verified 08/18/21 18:27 Home Medications Medication Instructions Recorded Confirmed Type multivitamin 1 tab PO QAM 09/14/19 08/18/21 History finasteride 5 mg tablet (Proscar) 5 mg PO QAM 30 Days #30 tab 09/19/19 08/18/21 Rx aspirin 81 mg tablet,delayed 81 mg PO HS 09/30/19 08/18/21 History release (Adult Aspirin Regimen) furosemide 20 mg tablet (Lasix) 20 mg PO QAM 10/08/19 08/18/21 History levothyroxine 50 mcg tablet 50 mcg PO DAILYBB 08/18/21 08/18/21 History lisinopril 40 mg tablet 40 mg PO DAILY 08/18/21 08/18/21 History metoprolol succinate 100 mg 100 mg PO DAILY 08/18/21 08/18/21 History tablet,extended release 24 hr spironolactone 25 mg tablet 25 mg PO DAILY 08/18/21 08/18/21 History Patient History Medical History Abnormal CT scan of lung Aortoiliac occlusive disease Asymptomatic hypertensive urgency Improved- BP 126/60 at cardio appt 10/07/19 Atrial fibrillation Bladder cancer Bladder mass BPH loc w urin obs/LUTS CHF (congestive heart failure) Clot retention of urine Colon cancer 2002 Diastolic heart failure Dyspnea Gross hematuria Hypertension Pleural effusion on right S/p thoracentesis - 1300ml during admission from 09/19/19- feels secondary to decompensated HF. Pneumonia age 18 Pulmonary hypertension Pulmonary nodule Followed by pulm - incidental finding Surgical History History of cataract extraction History of colonoscopy History of cystoscopy EVACUATION OF BLOOD CLOTS History of transurethral resection of prostate 10/19/19-transurethral resection bladder tumor with resection of bladder neck & prostate. S/P carpal tunnel release R/L S/P colon resection 2002 S/P TKR (total knee replacement) R/L S/P tonsillectomy Family History Family/Other Cancer Heart disease Mother , age 85 of stroke No problems noted. Father , age 69 Myocardial infarction Brother No problems noted. Other Family history non-contributory Social History Smoking Status: Unknown if ever smoked packs per day: 1; Years Smoked: 20; Number of Years Since Quit: 45; Second Hand Exposure: Yes (SPOUSE SMOKED); Preferred Language: Greek Communication Ability: Impaired Home Health Aide Caregiver Required: No Beliefs That Will Affect Care: None marital status: Current Living Situation: Spouse current occupational status: retired current occupation: [employer] How many Children do You have: 9 Feels Safe at Home: Yes Childhood Exposure to Second-Hand Smoke: No caffeine: Yes (a few cups of coffee in the am) Assistive Devices: Walker Review of Systems Review of Systems: All systems reviewed & are unremarkable except as noted in HPI & below Physical Exam Physical Exam: Constitutional: No acute distress HEENT: EOMI, PERRLA Respiratory system: Decreased air entry bilaterally, no wheeze, no rhonchi, mild crackles bilateral lower lobes CVS: S1-S2 positive, no murmurs or gallops Abdomen: Soft, nontender, nondistended, positive bowel sounds x4 Extremities: +2 pulses bilaterally radialis/ dorsalis pedis, no cyanosis, +1 pitting edema bilateral lower extremity Neuro: Awake alert oriented x3 Psych: Normal mood and affect G/U: Positive Skin: no rashes, warm and dry Lymphatic: no cervical or axillary lymphadenopathy Results & Data Results & Data ([facility]) Vital Signs (Past 12 Hours) Vital Signs Temp Pulse Pulse Resp BP BP Pulse Ox 08/19/21 09:00 63 30 H 138/58 L 100 08/19/21 08:13 71 08/19/21 08:00 36.6 C 56 L 28 H 144/61 H 95 08/19/21 07:55 36.6 C 61 25 H 144/61 H 99 08/19/21 05:00 74 68 29 H 154/91 H 84 L 08/19/21 04:30 78 25 H 98/58 L 83 L 08/19/21 04:18 74 25 H 98/58 L 98 08/19/21 04:07 24 164/83 H 90 08/19/21 04:00 73 25 H 88 L 08/19/21 03:30 27 H 85 L 08/19/21 03:00 32 H 76 L 08/19/21 02:30 74 21 159/91 H 93 08/19/21 02:20 21 81 L 08/19/21 02:10 58 L 22 91 08/19/21 02:00 64 22 95 08/19/21 01:50 73 21 88 L 08/19/21 01:45 58 L 23 100 08/19/21 01:40 60 27 H 98 08/19/21 01:30 73 20 86 L 08/19/21 01:20 55 L 16 97 08/19/21 01:10 52 L 23 97 08/19/21 01:00 59 L 61 23 124/83 98 08/19/21 00:50 61 19 124/63 95 08/19/21 00:40 55 L 24 08/19/21 00:30 63 26 H 08/19/21 00:20 49 L 22 93 08/19/21 00:10 28 H 08/19/21 00:00 29 H 78 L 08/18/21 23:30 43 L 18 98 08/18/21 23:00 52 L 52 L 21 131/52 L 131/52 L 89 L 08/18/21 22:30 39 L 24 92 08/18/21 22:18 37 L 16 97 08/18/21 22:00 44 L 24 92 08/18/21 21:46 54 L 23 92 Pulse Ox 08/19/21 09:00 08/19/21 08:13 08/19/21 08:00 08/19/21 07:55 08/19/21 05:00 08/19/21 04:30 08/19/21 04:18 98 08/19/21 04:07 08/19/21 04:00 08/19/21 03:30 08/19/21 03:00 08/19/21 02:30 08/19/21 02:20 08/19/21 02:10 08/19/21 02:00 08/19/21 01:50 08/19/21 01:45 08/19/21 01:40 08/19/21 01:30 08/19/21 01:20 08/19/21 01:10 08/19/21 01:00 08/19/21 00:50 08/19/21 00:40 08/19/21 00:30 08/19/21 00:20 08/19/21 00:10 08/19/21 00:00 08/18/21 23:30 08/18/21 23:00 08/18/21 22:30 08/18/21 22:18 08/18/21 22:00 08/18/21 21:46 Laboratory Results 08/19/21 05:23 08/19/21 06:56 PG Care Time/CCT Total # of Minutes Spent Total Time Spent with Patient: Total time spent is greater than 50% in coordination of care (as documented) at patient's floor/unit and/or counseling patient: Coding Level of Care Code 02809 Initial Inpt Care Lvl 3 Diagnoses Metabolic encephalopathy G93.41 Acute respiratory failure with hypercapnia J96.[address] R93.89
[2021-08-19] MEDS ORDERED: LACTULOSE SYRUP 30 GM/45 ML UDP PO ONE (09:45)
[2021-08-19] MEDS ORDERED: GLUCAGON 5 MG in SYRINGE 0 ML IV ONE (10:00)
--- NOTE | 2021-08-19 11:13 | Urology Consultation ---
Date of Consultation August 19, 2021 Assessment & Plan (1) Urothelial carcinoma of bladder: (2) UTI (urinary tract infection): Acutely ill; history of bladder cancer; question of UTI 1. Bladder cancer No acute interventions required based on imaging and history, he does, however, require outpatient follow-upwe will arrange 2. Possible UTI Culture pending, continue antibiotic coverage, no need for urological intervention for the UTI, simply treat medically Please call if further inpt assistance is required History of Present Illness Attending Physician: Thom Tinoco MD History of Present Illness 89-year-old male admitted to the hospital with several acute issues UTI is one of the possible drivers of some of his mental status changes, etc. He has a history of bladder cancerhe was treated earlier this year and is due for outpatient follow-up He is currently admitted to the ICU, he has a Goode catheter in place draining clear urine He had a CT on admission which shows no hydronephrosis, slightly atrophic kidneys, no large bladder masses, and a collapsed bladder. He denies any hematuria or significant dysuria prior to arrival in the hospital Allergies Allergy/AdvReac Type Severity Reaction Status Date / Time No Known Allergies Allergy Unknown Verified 08/18/21 18:27 Home Medications Medication Instructions Recorded Confirmed Type multivitamin 1 tab PO QAM 09/14/19 08/18/21 History finasteride 5 mg tablet (Proscar) 5 mg PO QAM 30 Days #30 tab 09/19/19 08/18/21 Rx aspirin 81 mg tablet,delayed 81 mg PO HS 09/30/19 08/18/21 History release (Adult Aspirin Regimen) furosemide 20 mg tablet (Lasix) 20 mg PO QAM 10/08/19 08/18/21 History levothyroxine 50 mcg tablet 50 mcg PO DAILYBB 08/18/21 08/18/21 History lisinopril 40 mg tablet 40 mg PO DAILY 08/18/21 08/18/21 History metoprolol succinate 100 mg 100 mg PO DAILY 08/18/21 08/18/21 History tablet,extended release 24 hr spironolactone 25 mg tablet 25 mg PO DAILY 08/18/21 08/18/21 History Patient History Medical History Abnormal CT scan of lung Aortoiliac occlusive disease Asymptomatic hypertensive urgency Improved- BP 126/60 at cardio appt 10/07/19 Atrial fibrillation Bladder cancer Bladder mass BPH loc w urin obs/LUTS CHF (congestive heart failure) Clot retention of urine Colon cancer 2002 Diastolic heart failure Dyspnea Gross hematuria Hypertension Pleural effusion on right S/p thoracentesis - 1300ml during admission from 09/19/19- feels secondary to decompensated HF. Pneumonia age 18 Pulmonary hypertension Pulmonary nodule Followed by pulm - incidental finding Surgical History History of cataract extraction History of colonoscopy History of cystoscopy EVACUATION OF BLOOD CLOTS History of transurethral resection of prostate 10/19/19-transurethral resection bladder tumor with resection of bladder neck & prostate. S/P carpal tunnel release R/L S/P colon resection 2002 S/P TKR (total knee replacement) R/L S/P tonsillectomy Family History Family/Other Cancer Heart disease Mother , age 85 of stroke No problems noted. Father , age 69 Myocardial infarction Brother No problems noted. 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 How many Children do You have: 9 Feels Safe at Home: Yes Childhood Exposure to Second-Hand Smoke: No caffeine: Yes (a few cups of coffee in the am) Assistive Devices: Walker Review of Systems Review of Systems: Uncertain his mental status allows full evaluation Constitutional: no fever, no chills and no fatigue Eyes: no worsening vision Ear, Nose, Mouth, Throat: no facial pain and no pain with swallowing Respiratory: + cough; no dyspnea Cardiovascular: no chest pain and no palpitations Gastrointestinal: no abdominal pain, no nausea and no vomiting Genitourinary: no hematuria Musculoskeletal: no back pain Integumentary: no rash and no urticaria Psychiatric: Family noted some changes Endocrine: no fatigue Physical Exam Physical Exam: Seems able to respond to questions appropriately although I suspect there is some underlying confusion Constitutional: well developed and well nourished Neck: neck nontender Respiratory: normal respiratory effort (Nasal cannula O2); no respiratory distress Tachypneic Cardiovascular: Rate/Rhythm: regular rate Gastrointestinal (Abdomen): Inspection/Auscultation: abdomen normal to inspection Percussion/Palpation: abdomen soft; abdomen nontender and no guarding Musculoskeletal: Head/Neck/Chest: normocephalic and head atraumatic Extremities: extremities normal to inspection Skin: no rashes and no lesions Trauma: no evidence of skin trauma Neurologic: awake; not obtunded Speech / Cognition: normal speech Mo tor/Sensory: no tremor Psychiatric: Orientation: alert Genitourinary: no CVA tenderness Goode with clear urine Lymphatic: no lymphadenopathy Results & Data ([facility]) Vital Signs (Past 12 Hours) Vital Signs Temp Pulse Pulse Resp BP BP Pulse Ox 08/19/21 11:02 36.3 C L 55 L 21 90/48 L 94 08/19/21 09:00 63 30 H 138/58 L 100 08/19/21 08:13 71 08/19/21 08:00 36.6 C 56 L 28 H 144/61 H 95 08/19/21 07:55 36.6 C 61 25 H 144/61 H 99 08/19/21 05:00 74 68 29 H 154/91 H 84 L 08/19/21 04:30 78 25 H 98/58 L 83 L 08/19/21 04:18 74 25 H 98/58 L 98 08/19/21 04:07 24 164/83 H 90 08/19/21 04:00 73 25 H 88 L 08/19/21 03:30 27 H 85 L 08/19/21 03:00 32 H 76 L 08/19/21 02:30 74 21 159/91 H 93 08/19/21 02:20 21 81 L 08/19/21 02:10 58 L 22 91 08/19/21 02:00 64 22 95 08/19/21 01:50 73 21 88 L 08/19/21 01:45 58 L 23 100 08/19/21 01:40 60 27 H 98 08/19/21 01:30 73 20 86 L 08/19/21 01:20 55 L 16 97 08/19/21 01:10 52 L 23 97 08/19/21 01:00 59 L 61 23 124/83 98 08/19/21 00:50 61 19 124/63 95 08/19/21 00:40 55 L 24 08/19/21 00:30 63 26 H 08/19/21 00:20 49 L 22 93 08/19/21 00:10 28 H 08/19/21 00:00 29 H 78 L 08/18/21 23:30 43 L 18 98 Pulse Ox 08/19/21 11:02 08/19/21 09:00 08/19/21 08:13 08/19/21 08:00 08/19/21 07:55 08/19/21 05:00 08/19/21 04:30 08/19/21 04:18 98 08/19/21 04:07 08/19/21 04:00 08/19/21 03:30 08/19/21 03:00 08/19/21 02:30 08/19/21 02:20 08/19/21 02:10 08/19/21 02:00 08/19/21 01:50 08/19/21 01:45 08/19/21 01:40 08/19/21 01:30 08/19/21 01:20 08/19/21 01:10 08/19/21 01:00 08/19/21 00:50 08/19/21 00:40 08/19/21 00:30 08/19/21 00:20 08/19/21 00:10 08/19/21 00:00 08/18/21 23:30 PG Care Time/CCT Total # of Minutes Spent Total Time Spent with Patient: Total time spent is greater than 50% in coordination of care (as documented) at patient's floor/unit and/or counseling patient: Coding Level of Care Code 63492 Inpt Consult Level 3 Diagnoses Urothelial carcinoma of bladder C67.9 UTI (urinary tract infection) N39.0
--- NOTE | 2021-08-19 11:42 | Electrocardiogram Report ---
Test Reason : Blood Pressure : / mmHG Vent. Rate : 038 BPM Atrial Rate : 038 BPM P-R Int : 000 ms QRS Dur : 148 ms QT Int : 570 ms P-R-T Axes : 000 145 083 degrees QTc Int : 453 ms Atrial fibrillation with slow ventricular response Right bundle branch block Anterior infarct , age undetermined Abnormal ECG When compared with ECG of 23-FEB-2021 10:24, Vent. rate has decreased BY 19 BPM Confirmed by Seferino Dai ([id number]) on 08/19/2021 11:41:55 AM Referred By: REFERRED SELF Confirmed By:Seferino Dai
[2021-08-19] MEDS: DOPamine / D5W 400 MG/250 ML BAG IV SCH ×2 (12:15→23:37)
--- NOTE | 2021-08-19 12:51 | Cardiology Consultation ---
Date of Consultation August 19, 2021 Assessment & Plan (1) High-grade atrioventricular block: (2) Confusion: (3) Weakness: (4) Peripheral neuropathy: (5) Gram-negative bacteremia: (6) Aortoiliac occlusive disease: (7) PAD (peripheral artery disease): (8) Hypertension: (9) CHF (congestive heart failure): (10) Atrial fibrillation: (11) Acute pyelonephritis: (12) Urothelial carcinoma of bladder: Very medically complex 89-year-old male presents to [facility] with significant bradycardia into the 20s requiring dobutamine infusion. Also with possible active UTI, cultures pending and broad-spectrum antibiotics were started. At this point, given his continued high-grade AV block and episodes of complete heart block he would qualify for or permanent pacemaker placement once the infection is cleared. His goals of care are not clear, I attempted to call his but no answer. Consideration should be given to palliative care consultation in regards to goals of care over the patient and his family. Continue to monitor on telemetry and dopamine drip for now to maintain heart rates greater than 50. Obviously, beta-bryant has been held. History of Present Illness Reason for Consultation: bradycardia Requesting Physician: Dr. Tinoco Attending Physician: Thom Tinoco MD History of Present Illness It was my pleasure to see Mr. Coulter in cardiac consultation today August 19, 2021. He is a very pleasant yet currently confused 89-year-old gentleman who routinely follows with Dr. Smith of our cardiology practice for his history of paroxysmal atrial fibrillation. The patient is currently confused and does not remember the events leading to hospitalization. History obtained through review of medical records and discussing with nursing staff. Reportedly the patient has been confused for the last several days but reluctant to come to the hospital. His finally called EMS on 08/18 and upon arrival he was found to be bradycardic with heart rates in the 20s. There are no reports of any cardiac complaints of chest pain, shortness of breath, palpitations, lightheadedness or dizziness. Upon arrival, the patient was placed on a dopamine drip with good heart rate response. The drip was held this morning and he remained in high- grade AV block into the 30s with possible episodes of complete heart block. Allergies Allergy/AdvReac Type Severity Reaction Status Date / Time No Known Allergies Allergy Unknown Verified 08/18/21 18:27 Home Medications Medication Instructions Recorded Confirmed Type multivitamin 1 tab PO QAM 09/14/19 08/18/21 History finasteride 5 mg tablet (Proscar) 5 mg PO QAM 30 Days #30 tab 09/19/19 08/18/21 Rx aspirin 81 mg tablet,delayed 81 mg PO HS 09/30/19 08/18/21 History release (Adult Aspirin Regimen) furosemide 20 mg tablet (Lasix) 20 mg PO QAM 10/08/19 08/18/21 History levothyroxine 50 mcg tablet 50 mcg PO DAILYBB 08/18/21 08/18/21 History lisinopril 40 mg tablet 40 mg PO DAILY 08/18/21 08/18/21 History metoprolol succinate 100 mg 100 mg PO DAILY 08/18/21 08/18/21 History tablet,extended release 24 hr spironolactone 25 mg tablet 25 mg PO DAILY 08/18/21 08/18/21 History Patient History Medical History Abnormal CT scan of lung Aortoiliac occlusive disease Asymptomatic hypertensive urgency Improved- BP 126/60 at cardio appt 10/07/19 Atrial fibrillation Bladder cancer Bladder mass BPH loc w urin obs/LUTS CHF (congestive heart failure) Clot retention of urine Colon cancer 2002 Diastolic heart failure Dyspnea Gross hematuria Hypertension Pleural effusion on right S/p thoracentesis - 1300ml during admission from 09/19/19- feels secondary to decompensated HF. Pneumonia age 18 Pulmonary hypertension Pulmonary nodule Followed by pulm - incidental finding Surgical History History of cataract extraction History of colonoscopy History of cystoscopy EVACUATION OF BLOOD CLOTS History of transurethral resection of prostate 10/19/19-transurethral resection bladder tumor with resection of bladder neck & prostate. S/P carpal tunnel release R/L S/P colon resection 2002 S/P TKR (total knee replacement) R/L S/P tonsillectomy Family History Family/Other Cancer Heart disease Mother , age 85 of stroke No problems noted. Father , age 69 Myocardial infarction Brother No problems noted. 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 No acute distress. HEENT: Normocephalic, atraumatic. Pupils equal, round and reactive to light and accommodation. Extraocular muscles are intact. Anicteric sclera. Moist mucous membranes. Neck: No JVD. No bruit. Cardiovascular: Irregularly irregular and slow. Positive S-4. Normal S-1 and S-2. No S-3. 3/6 mid to late systolic ejection murmur, greatest at the right sternal border, second intercostal space with radiation to the bilateral carotids. No rubs. Pulmonary: Clear to auscultation bilaterally. No rales, rhonchi, or wheezing. Abdomen: Bowel sounds x 4, soft. No rebound, guarding or tenderness. No organomegaly. Extremities: No clubbing, cyanosis or edema. +2 pedal pulses bilaterally. Skin: Warm and dry. Results & Data ([facility]) Vital Signs (Past 12 Hours) Vital Signs Temp Pulse Pulse Resp BP BP Pulse Ox 08/19/21 11:02 36.3 C L 55 L 21 90/48 L 94 08/19/21 09:00 63 30 H 138/58 L 100 08/19/21 08:13 71 08/19/21 08:00 36.6 C 56 L 28 H 144/61 H 95 08/19/21 07:55 36.6 C 61 25 H 144/61 H 99 08/19/21 05:00 74 68 29 H 154/91 H 84 L 08/19/21 04:30 78 25 H 98/58 L 83 L 08/19/21 04:18 74 25 H 98/58 L 98 08/19/21 04:07 24 164/83 H 90 08/19/21 04:00 73 25 H 88 L 08/19/21 03:30 27 H 85 L 08/19/21 03:00 32 H 76 L 08/19/21 02:30 74 21 159/91 H 93 08/19/21 02:20 21 81 L 08/19/21 02:10 58 L 22 91 08/19/21 02:00 64 22 95 08/19/21 01:50 73 21 88 L 08/19/21 01:45 58 L 23 100 08/19/21 01:40 60 27 H 98 08/19/21 01:30 73 20 86 L 08/19/21 01:20 55 L 16 97 08/19/21 01:10 52 L 23 97 08/19/21 01:00 59 L 61 23 124/83 98 08/19/21 00:50 61 19 124/63 95 Pulse Ox 08/19/21 11:02 08/19/21 09:00 08/19/21 08:13 08/19/21 08:00 08/19/21 07:55 08/19/21 05:00 08/19/21 04:30 08/19/21 04:18 98 08/19/21 04:07 08/19/21 04:00 08/19/21 03:30 08/19/21 03:00 08/19/21 02:30 08/19/21 02:20 08/19/21 02:10 08/19/21 02:00 08/19/21 01:50 08/19/21 01:45 08/19/21 01:40 08/19/21 01:30 08/19/21 01:20 08/19/21 01:10 08/19/21 01:00 08/19/21 00:50
[2021-08-19] MEDS: CEFEPIME 2,000 MG in SYRINGE 0 ML IV SCH (19:56)
[2021-08-19] MEDS: ASPIRIN 81 MG ECTAB PO SCH (20:46)
[2021-08-20 05:32] LABS: Hematocrit (blood only) 51.1 % (42-52); Hemoglobin 16.7 g/dL (14.0-18.0); Mean Corpuscular Hemoglobin 31.5 pg (25-34); Mean Corpuscular Hgb Conc 32.7 g/dL (32-36); Mean Corpuscular Volume 96.2 fL (80-100); Platelet Count 149 K/uL (130-400); RDW Coefficient of Variation 16.4 % (11.5-14.5); RDW Standard Deviation 56.7 fL (36.4-46.3); Red Blood Count 5.31 M/uL (4.7-6.1); White Blood Count 13.19 K/uL (4.8-10.8)
[2021-08-20] MEDS: LEVOTHYROXINE SODIUM 50 MCG TABLET PO SCH (06:09)
--- NOTE | 2021-08-20 07:06 | Hospitalist Progress Note ---
Date of Service August 19, 2021 Assessment & Plan Admission and Anticipated Discharge Date Admission Date: August 19, 2021 Subjective Patient's at the bedside and updated. Patient seen by pulmonary medicine, cardiology, and urology. He remains on dobutamine. Patient's confirmed CODE STATUS DNR/DNI. Patient's reports receiving several phone calls from the hospital, but was not sure how to call back (did not have the hospital number). Says she will try to reach back to providers. Souleymane Tinoco MD Results & Data Results & Data ([facility]) Vital Signs (Past 12 Hours) Vital Signs Temp Pulse Pulse Resp BP BP Pulse Ox 08/20/21 02:51 36.5 C 74 24 138/69 96 08/20/21 02:48 70 20 95 08/19/21 23:10 36.2 C L 74 33 H 128/58 L 95 08/19/21 22:05 71 22 96 08/19/21 19:08 36.6 C 68 24 135/54 L 93
--- NOTE | 2021-08-20 07:07 | Hospitalist Progress Note ---
Date of Service August 20, 2021 Assessment & Plan (1) Metabolic encephalopathy: (2) High-grade atrioventricular block: (3) Acute respiratory failure with hypercapnia: Plan: This is an 89-year-old male who presents with confusion and found to have bradycardia and urinary tract infection. 1.Altered mental status, possibly secondary to urinary tract infection, possibly secondary to bradycardia,and co2 retention,Possible sepsis from questionable pneumonia and UTI. Empiric antibiotics, cefepime and doxycycline. Follow the cultures. Also he has CO2 retention, possibly causing his confusion, etiology unclear for CO2 retention. On admission on BiPAP, now on NC with minimal suppl. O2. ER spoke with cardiology for bradycardia after starting on dopamine drip, which will be continued. Echocardiogram and serial enzymes obtained. Pt is still on dopamine drip w/ improvement of HR. Cardiology discussed with pt's possibility of pacemaker - no plan for pacemaker as pt would likely not want that. Discussed personally code status w/ pt's - pt is DNR/DNI Monitor on tele floor. Palliative medicine consulted. Also, consult pulmonary for CO2 retention. Initially on BiPAP, now on NC with minimal O2 suppl. Carlos majoer as temp low on admission. 2 History of diastolic congestive heart failure. Received a dose of IV Lasix in the ER. Hold home Lasix, diuretics for now. Also, holding home metoprolol for bradycardia. 3. Acute kidney injury on chronic kidney disease stage 3: Baseline creatinine of 1.3-1.4, on admission with creatinine of 1.7. Holding the diuretics and lisinopril. Monitor renal function. Pt has decreased urine output and minimal PO intake. Repeat imaging with much improved pulm. edema. Will provide very gentle IVF and cont. to closely monitor. 4. History of hypertension: Currently on dopamine drip and holding lisinopril and metoprolol. Will monitor the blood pressure. 5. Hypothyroidism. Continue Synthroid.TSH wnl 6. History of benign prostatic hypertrophy: on Proscar. 7. History of urothelial carcinoma of the bladder: s/p HCG and BCG treatment. 8. History of atrial fibrillation: Not on any anticoagulation. Currently requiring dopamine drip, holding metoprolol because of bradycardia, possible tachybrady syndrome. Cardiology consulted, as above. 9. History of colon cancer, status post surgery in 2002. DVT prophylaxis: Heparin subcutaneously. DISPOSITION: tele floor for now. prognosis guarded. CODE STATUS: DNR/DNI as per the discussion with pt's . Admission and Anticipated Discharge Date Admission Date: August 19, 2021 Subjective Pt is sitting up in bed, lethargic He has food in his mouth that he didn't swallow (removed by RN at the bedside) He is able to answer some simple questions but full ROS difficult to obtain. Cont. on dopamine drip Per cardiology conversation with pt's , no plan for pacemaker. Review of Systems Review of Systems: All systems reviewed & are unremarkable except as noted in Subjective (no complaints but diff. to obtain full ROS d/t lethargy) Physical Exam Physical Exam: GENERAL: thin elderly M in NAD, chronically ill appearing, lethargic HEENT: NC/AT. Pupils equal, round and reactive to light. NECK: No JVD. No masses. CARDIOVASCULAR: S1 and S2 heard, regular rate and rhythm. No murmur, no gallop. RESPIRATORY: Normal AP diameter. No accessory muscle use. No wheezing, no crackles. ABDOMEN: Soft, bowel sounds present, nontender, no distention. NEURO:Drowsy/ lethargic, able to answer some questions appropriately. No facial droop seen. Moves extremities. EXTREMITIES: No edema, no erythema seen. Results & Data Results & Data ([facility]) Vital Signs (Past 12 Hours) Vital Signs Temp Pulse Pulse Resp BP BP Pulse Ox 08/20/21 02:51 36.5 C 74 24 138/69 96 08/20/21 02:48 70 20 95 08/19/21 23:10 36.2 C L 74 33 H 128/58 L 95 08/19/21 22:05 71 22 96 08/19/21 19:08 36.6 C 68 24 135/54 L 93 Laboratory Results 08/20/21 08/20/21 08/20/21 Range/Units 06:41 05:06 05:06 WBC 13.19 H (4.8-10.8) K/uL RBC 5.31 (4.7-6.1) M/uL Hgb 16.7 (14.0-18.0) g/dL Hct 51.1 (42-52) % MCV 96.2 (80-100) fL MCH 31.5 (25-34) pg MCHC 32.7 (32-36) g/dL RDW Std Deviation 56.7 H (36.4-46.3) fL RDW Coeff of Naeem 16.4 H (11.5-14.5) % Plt Count 149 (130-400) K/uL MPV 11.0 H (7.4-10.4) fL Sodium Pending Cancelled Potassium Pending Cancelled (3.5-5.1) mmol/L Chloride Pending Cancelled Carbon Dioxide Pending Cancelled Anion Gap Pending Cancelled BUN Pending Cancelled Creatinine Pending Cancelled Est Cr Clr Drug Dosing Pending Cancelled Est GFR ( Amer) Pending Cancelled Est GFR (Non-Af Amer) Pending Cancelled BUN/Creatinine Ratio Pending Cancelled Glucose Pending Cancelled Calcium Pending Cancelled Phosphorus Pending Cancelled Magnesium Pending Cancelled (1.8-2.4) mg/dl Troponin I (0-0.045) ng/ml 08/19/21 08/19/21 08/19/21 Range/Units 16:41 10:40 06:56 WBC (4.8-10.8) K/uL RBC (4.7-6.1) M/uL Hgb (14.0-18.0) g/dL Hct (42-52) % MCV (80-100) fL MCH (25-34) pg MCHC (32-36) g/dL RDW Std Deviation (36.4-46.3) fL RDW Coeff of Naeem (11.5-14.5) % Plt Count (130-400) K/uL MPV (7.4-10.4) fL Sodium Potassium 4.8 (3.5-5.1) mmol/L Chloride Carbon Dioxide Anion Gap BUN Creatinine Est Cr Clr Drug Dosing Est GFR ( Amer) Est GFR (Non-Af Amer) BUN/Creatinine Ratio Glucose Calcium Phosphorus Magnesium 2.0 (1.8-2.4) mg/dl Troponin I 0.078 H* 0.049 H* (0-0.045) ng/ml Medications Administered Current Inpatient Medications Acetaminophen (Acetaminophen 325 Mg Tab) 650 mg PO Q4H PRN PRN Reason: Pain or Fever Stop: 09/18/21 04:17 Aspirin (Aspirin 81 Mg Ectab) 81 mg PO HS [facility]ON[facility] Stop: 09/18/21 20:59 Last Admin: 12/26/21 20:46 Dose: 81 mg Documented by: Finasteride (Finasteride 5 Mg Tab) [facility] Stop: 09/18/21 08:59 Last Admin: 08/19/21 09:22 Dose: 5 mg Documented by: Furosemide (Furosemide 20 Mg Tab) 20 mg PO QAM [facility] Stop: 09/18/21 08:59 Last Admin: 08/19/21 09:22 Dose: 20 mg Documented by: Heparin Sodium (Porcine) (Heparin Sod 5,000 Unit/0.5 Ml Vial) 5,000 units SQ Q12 [facility] Stop: 09/18/21 08:59 Last Admin: 08/19/21 20:47 Dose: 5,000 units Documented by: Dopamine HCl/Dextrose (Dopamine / D5w) 400 mg in 250 mls @ 21.791 mls/hr IV .[id number] [facility]; Protocol Stop: 09/17/21 22:29 Last Admin: 08/19/21 23:37 Dose: 6.5 mcg/kg/min, 21.8 mls/hr Documented by: Doxycycline Hyclate 100 mg/ (Dextrose) 110 mls @ 50 mls/hr IV Q12H [facility] Stop: 08/26/21 08:59 Last Infusion: 08/19/21 22:50 Dose: Infused Documented by: Cefepime HCl 2,000 mg/ Syringe 20 mls @ 5 mls/min IV Q24H [facility]; Protocol Stop: 08/29/21 19:59 Last Admin: 08/19/21 19:56 Dose: 5 mls/min Documented by: Levothyroxine Sodium (Levothyroxine Sodium 50 Mcg Tablet) [facility] Stop: 09/18/21 06:29 Last Admin: 08/20/21 06:09 Dose: 50 mcg Documented by: Multivitamins (Multivitamin Tab) 1 tab PO [facility] Stop: 09/18/21 08:59 Last Admin: 08/19/21 09:22 Dose: 1 tab Documented by: Nitroglycerin (Nitroglycerin Sl 0.4 Mg/Tab Tab) 0.4 mg SL UD PRN PRN Reason: Chest Pain Stop: 09/18/21 04:17
[2021-08-20 07:16] LABS: BUN Creatinine Ratio 24.1 (10-20); Calcium 8.8 mg/dl (8.5-10.1); Creatinine Clr Calc Pharmacy 25.1 ml/min; Est GFR (African American) 29.6 ml/min; Est GFR (Non-African American) 25.5 ml/min; Magnesium 2.2 mg/dl (1.8-2.4); Phosphorus 3.7 mg/dl (2.5-4.9); Potassium 5.3 mmol/L (3.5-5.1)
--- NOTE | 2021-08-20 07:53 | Electrocardiogram Report ---
Test Reason : Blood Pressure : / mmHG Vent. Rate : 047 BPM Atrial Rate : 047 BPM P-R Int : 000 ms QRS Dur : 144 ms QT Int : 554 ms P-R-T Axes : 000 227 -56 degrees QTc Int : 490 ms Atrial fibrillation Right bundle branch block Cannot rule out Inferior infarct , age undetermined Abnormal ECG When compared with ECG of 18-AUG-2021 18:51, Criteria for Anterior infarct are no longer Present Confirmed by Santo Fowler ([id number]) on 08/20/2021 7:53:35 AM Referred By: REFERRED SELF Confirmed By:Adan Fowler
[2021-08-20] MEDS: MULTIVITAMIN TAB PO SCH (08:13)
[2021-08-20] MEDS: HEPARIN SOD 5,000 UNIT/0.5 ML VIAL SQ SCH ×2 (08:13→20:48)
[2021-08-20] MEDS: FUROSEMIDE 20 MG TAB PO SCH (08:13)
[2021-08-20] MEDS: DOXYCYCLINE HYCLATE 100 MG in DEXTROSE 5% 100 ML IV SCH ×2 (08:13→20:40)
[2021-08-20] MEDS: FINASTERIDE 5 MG TAB PO SCH (08:13)
--- NOTE | 2021-08-20 08:53 | XRay Report ---
XR chest 1V portable CLINICAL HISTORY: Hypoxia/Pleural effusion COMPARISON STUDY: Chest radiograph August 18, 2021. FINDINGS: There is no pneumothorax. Small right pleural effusion is noted. There is persistent right basilar opacity. Mild right midlung opacity is present. There is no evidence for overt pulmonary no a. Cardiomediastinal silhouette is stable. Pulmonary vascular congestion has improved. Left basilar o pacity favors atelectasis. IMPRESSION: 1. Small right pleural effusion. Associated right basilar opacity favors atelectasis. Right midlung o pacity could reflect atelectasis or a superimposed infectious process. 2. Cardiomegaly. Improvement in pulmonary vascular congestion. ACT 112: Negative or not required by law. Electronically signed by: Akil Chen M.D. 08/20/2021 8:52 AM
[2021-08-20] MEDS: DOPamine / D5W 400 MG/250 ML BAG IV SCH ×2 (11:41→22:47)
--- NOTE | 2021-08-20 12:14 | Pulmonology Progress Note ---
Date of Service August 20, 2021 Assessment & Plan (1) Metabolic encephalopathy: (2) Acute respiratory failure with hypercapnia: (3) Abnormal chest CT: Plan: Attending: Dr. Gaxiola Impression: There is an 89-year-old male with bradycardia into the 20s requiring dobutamine infusion. Patient presented with hypercapnia and was put on BiPAP with good response. CT scan of the chest showed rounded atelectasis of the right lower lobe. There is also a small pleural effusion. He previously had thoracentesis which was transudative. Discussed with patient's Effie. He is a DNR/DNI. She thinks that he would probably be compliant with supplemental oxygen and may be compliant with CPAP but understands that we would need outpatient work-up. She states it is difficult to get patient to appointments as he is so weak and she cannot get him out of the house alone. They do have a son who is a mcclure and could coordinate appointments if given time. Recommendations: 1. Acute respiratory failure with hypoxia and hypercapnia: * Patient does seem to be tolerating BiPAP inpatient. 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 Abnormal CT scan: * No pulmonary nodules or masses * Rounded atelectasis at the bases. * Patient not able to coordinate incentive spirometry at this time. * Will follow clinically without need to pursue further imaging At this time the pulmonary team will sign off. If patient is discharged home, may need supplemental oxygen. Would check a two-step prior to discharge. Otherwise, was scheduled for outpatient follow-up for polysomnography and pulmonary function testing. We will continue to target SaO2 between 88% and 92%. Please feel free to call with further questions or for reconsult. Admission and Anticipated Discharge Date Admission Date: August 19, 2021 Subjective Attending: Dr. Gaxiola Patient seen and examined at bedside. He is somewhat misoriented but easily redirected. No complaints of acute distress. No chest pain or tightness. Patient is not using accessory muscles. He is saturating in the low 90s on room air. He is still hypercapnic and requiring CPAP at night. I spoke to the patient's Effie and she reports that he has never had CPAP or supplemental oxygen requirements at home before. She does not think that he has any polysomnography or pulmonary function testing home as well. He has been having more more difficulty with ADLs at home. She has noticed a steady decline over the last several months. Mental status has been intact but she has noticed that he seems more confused since his admission. Patient denies any fever, chills, sweats, rigors. He has no other acute complaints other than malaise and shortness of breath with minimal exertion. Review of Systems Review of Systems: All systems reviewed & are unremarkable except as noted in Subjective Physical Exam Physical Exam: GENERAL : No acute distress EYES: No icterus, gaze conjugate NOSE: No evidence of epistaxis MOUTH: No lesions or candidiasis NECK: Supple LUNGS: Decreased breath sounds. Fine crackles at bilateral bases. No appreciation of bronchospasm or rhonchi. HEART: Regular, rate controlled ABDOMEN: Soft, NT, ND, BS Present EXTREMITIES: No LE edema, pedal pulses intact NEURO: A&OX3 Results & Data Results & Data ([facility]) Vital Signs (Past 12 Hours) Vital Signs Temp Pulse Pulse Resp BP Pulse Ox 08/20/21 11:18 36.4 C L 85 25 H 125/51 L 90 08/20/21 07:49 36.6 C 74 20 131/78 93 08/20/21 02:51 36.5 C 74 24 138/69 96 08/20/21 02:48 70 20 95 Laboratory Results 08/20/21 05:06 08/20/21 06:41 08/18/21 08/19/21 18:49 05:23 ABG pH 7.28 L 7.40 ABG pCO2 72 H 50 H ABG pO2 100 H 66 L ABG HCO3 33 H 30 H ABG O2 Saturation 96.6 H 94.1 ABG Base Excess 3.4 H 3.8 H COVID-19 Results 08/18/21 19:25 SARS-CoV-2 (PCR) NEGATIVE Diagnostic Findings Chest X-Ray 08/20/21 08:14 XR chest 1V portable CLINICAL HISTORY: Hypoxia/Pleural effusion COMPARISON STUDY: Chest radiograph August 18, 2021. FINDINGS: There is no pneumothorax. Small right pleural effusion is noted. There is persistent right basilar opacity. Mild right midlung opacity is present. There is no evidence for overt pulmonary edema. Cardiomediastinal silhouette is stable. Pulmonary vascular congestion has improved. Left basilar opacity favors atelectasis. IMPRESSION: 1. Small right pleural effusion. Associated right basilar opacity favors atelectasis. Right midlung opacity could reflect atelectasis or a superimposed infectious process. 2. Cardiomegaly. Improvement in pulmonary vascular congestion. ACT 112: Negative or not required by law. Electronically signed by: Akil Chen M.D. 08/20/2021 8:52 AM PG Care Time/CCT Total # of Minutes Spent Total Time Spent with Patient: Total time spent is greater than 50% in coordination of care (as documented) at patient's floor/unit and/or counseling patient:40 minutes and examination of patient, discussion with patient, discussion with patient's Coding Level of Care Code 25354 Subseq Hosp Care Lvl 2 Diagnoses Metabolic encephalopathy G93.41 Acute respiratory failure with hypercapnia J96.[address] R93.89 Time Spent (min) 40
--- NOTE | 2021-08-20 12:21 | Cardiology Progress Note ---
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 Patient continues to require dopamine infusion to maintain heart rates. Telemetry reveals continued high-grade AV block. I had a long discussion with the patient's by phone who states that he would not want a permanent pacemaker placed and she would like to follow his wishes. Further explained that without pacemaker and dopamine infusion there is a very high likelihood that this episode will be fatal, she states that she understands. Agree with palliative care consultation We will continue dopamine drip for now and follow to see if there is any improvement in his rates in the next few days. Admission and Anticipated Discharge Date Admission Date: August 19, 2021 Subjective Patient seen and examined, chart reviewed. Lethargic but responsive to questioning. Denies any complaints. I was able to speak with his by phone who confirmed that he would not want a permanent pacemaker placed. Review of Systems Review of Systems: All systems reviewed & are unremarkable except as noted in HPI & below Physical Exam Physical Exam: General: Awake, alert but confused. No acute distress. HEENT: Normocephalic, atraumatic. Pupils equal, round and reactive to light and accommodation. Extraocular muscles are intact. Anicteric sclera. Moist mucous membranes. Neck: No JVD. No bruit. Cardiovascular: Irregularly irregular and slow. Positive S-4. Normal S-1 and S-2. No S-3. 3/6 mid to late systolic ejection murmur, greatest at the right sternal border, second intercostal space with radiation to the bilateral carotids. No rubs. Pulmonary: Clear to auscultation bilaterally. No rales, rhonchi, or wheezing. Abdomen: Bowel sounds x 4, soft. No rebound, guarding or tenderness. No organomegaly. Extremities: No clubbing, cyanosis or edema. +2 pedal pulses bilaterally. Skin: Warm and dry. Results & Data ([facility]) Vital Signs (Past 12 Hours) Vital Signs Temp Pulse Pulse Resp BP Pulse Ox 08/20/21 11:18 36.4 C L 85 25 H 125/51 L 90 08/20/21 07:49 36.6 C 74 20 131/78 93 08/20/21 02:51 36.5 C 74 24 138/69 96 08/20/21 02:48 70 20 95
--- NOTE | 2021-08-20 13:41 | Electrocardiogram Report ---
Test Reason : Blood Pressure : / mmHG Vent. Rate : 078 BPM Atrial Rate : 057 BPM P-R Int : 000 ms QRS Dur : 140 ms QT Int : 440 ms P-R-T Axes : 000 217 038 degrees QTc Int : 501 ms Atrial fibrillation Right bundle branch block Cannot rule out Inferior infarct (cited on or before 16-FEB-2021) Abnormal ECG When compared with ECG of 19-AUG-2021 12:01, Nonspecific T wave abnormality now evident in Lateral leads Confirmed by Santo Fowler ([id number]) on 08/20/2021 1:41:13 PM Referred By: REFERRED SELF Confirmed By:Adan Fowler
[2021-08-20] MEDS ORDERED: SODIUM CHLORIDE 0.9% 1000ML 500 ML IV ONE (19:13)
[2021-08-20] MEDS ORDERED: SODIUM CHLORIDE 0.9% 500 ML IV ONE (20:15)
[2021-08-20] MEDS: CEFEPIME 2,000 MG in SYRINGE 0 ML IV SCH (20:40)
[2021-08-20] MEDS: ASPIRIN 81 MG ECTAB PO SCH (21:06)
[2021-08-21 05:24] LABS: Hematocrit (blood only) 50.7 % (42-52); Hemoglobin 15.8 g/dL (14.0-18.0); Mean Corpuscular Hgb Conc 31.2 g/dL (32-36); Mean Corpuscular Volume 99.4 fL (80-100); Mean Platelet Volume 10.5 fL (7.4-10.4); Nucleated RBC # (auto) 0.04 K/uL (0-0); Nucleated RBC % (auto) 0.2 %; Platelet Count 168 K/uL (130-400); RDW Standard Deviation 61.5 fL (36.4-46.3); White Blood Count 14.63 K/uL (4.8-10.8)
[2021-08-21 05:51] LABS: BUN Creatinine Ratio 22.5 (10-20); Calcium 8.8 mg/dl (8.5-10.1); Creatinine Clr Calc Pharmacy 18.2 ml/min; Est GFR (African American) 20.1 ml/min; Est GFR (Non-African American) 17.4 ml/min; Magnesium 2.3 mg/dl (1.8-2.4); Phosphorus 4.8 mg/dl (2.5-4.9); Potassium 5.4 mmol/L (3.5-5.1)
[2021-08-21] MEDS: LEVOTHYROXINE SODIUM 50 MCG TABLET PO SCH (06:34)
[2021-08-21] MEDS: FUROSEMIDE 20 MG TAB PO SCH (08:58)
[2021-08-21] MEDS: HEPARIN SOD 5,000 UNIT/0.5 ML VIAL SQ SCH ×2 (08:58→20:18)
[2021-08-21] MEDS: MULTIVITAMIN TAB PO SCH (08:58)
[2021-08-21] MEDS: FINASTERIDE 5 MG TAB PO SCH (08:58)
[2021-08-21] MEDS: DOXYCYCLINE HYCLATE 100 MG in DEXTROSE 5% 100 ML IV SCH ×2 (09:04→20:16)
[2021-08-21] MEDS: DOPamine / D5W 400 MG/250 ML BAG IV SCH ×2 (10:58→22:31)
--- NOTE | 2021-08-21 16:33 | Hospitalist Progress Note ---
Date of Service August 21, 2021 Assessment & Plan (1) Metabolic encephalopathy: Plan: Multiple insults including acute respiratory failure with hypercapnia, intolerant of BIPAP and unable to receive mechanical ventilation given DNR status. UTI or pneumonia may be contributing, on antibiotics. Bradycardia 2/2 high grade AV block, requiring dopamine infusion. Emili grew in urine culture- ID weighing in on this. (2) High-grade atrioventricular block: Plan: Holding home metoprolol, no pacemaker desired per family wishes, remains on dopamine infusion to keep heart rate up. Cont to try and wean as beta bryant washes out of system. (3) Acute respiratory failure with hypercapnia: Plan: possibly related to pneumonia, fluid overload, atelectasis or a combination. Cont with antibiotics, lasix was initially given with improvement in congestion on subsequent CXR, patient remains obtunded and unable to tolerate BIPAP. Cont current therapies. (4) Acute diastolic heart failure: Plan: Pulmonary congestion and evidence of small pleural effusion may be related to acute heart failure. This was improved on subsequent chest imaging. Repeat CXR in am. Dose with Lasix based on this and hemodynamics. Patient is obtunded and cannot take regular pills. (5) Acute kidney injury superimposed on chronic kidney disease: Plan: Stage 3 CKD at baseline. Baseline creatinine of 1.3-1.4, on admission with creatinine of 1.7. Continues to worsen. Possibly related to poor oral intake--it is unclear how much he has been able to eat or drink recently, but today he is not safe to feed. Diuretics possibly contributing. Volume status is difficult to evaluate as patient altered. Trace lower extremity edema is present to the knees bilaterally. Unable to take po at this time. Hold diuretics and lisinopril. Trend BMP. Decreased urine output. Consider IVF if he doesn't become more alert and start drinking more on his own. Consider nephrology consult in am. (6) DVT prophylaxis: Plan: Heparin DNR/DNI Dispo-very guarded prognosis, per notes patient's understands this. Adriana Morales DO [facility] Hospitalist Admission and Anticipated Discharge Date Admission Date: August 19, 2021 Subjective 89 yo M presented with altered mental status, found to have bradycardia, now on dopamine infusion. Family against placement of pacemaker. Patient is lethargic and only withdraws to pain He doesn't awaken to voice or follow commands He is too lethargic to eat. Dopamine infusion was running through a peripheral line. We changed this to an US-guided line. Review of Systems Review of Systems: cannot obtain ROS as patient is letharguc and altered. Physical Exam Physical Exam: CONSTITUTIONAL: WNWD, vitals as above, obtunded. EYES: PERRL, normal conjunctivae, no scleral icterus ENT: external ear and nose normal, oropharynx clear, mouth breathing. NECK: trachea midline RESPIRATORY: clear to auscultation bilaterally, no crackles, rales or wheezes, normal respiratory effort CARDIOVASCULAR: regular rate and rhythm, S1 and 2 heard without murmurs, gallops or rubs, no JVD, no peripheral edema GASTROINTESTINAL: normal bowel sounds, soft, ND, no guarding. MUSCULOSKELETAL: cannot assess, obtunded. SKIN: warm and dry NEUROLOGIC: obtunded, withdraws to pain Results & Data Results & Data ([facility]) Vital Signs (Past 12 Hours) Vital Signs Temp Pulse Pulse Resp BP Pulse Ox 08/21/21 12:10 85 08/21/21 12:06 36.4 C L 82 17 135/57 L 96 08/21/21 07:50 36.5 C 87 18 150/68 H 96 Laboratory Results Short CBC 08/21/21 Range/Units 05:05 WBC 14.63 H (4.8-10.8) K/uL Hgb 15.8 (14.0-18.0) g/dL Hct 50.7 (42-52) % Plt Count 168 (130-400) K/uL BMP 08/21/21 05:05 Sodium 136 Potassium 5.4 H Chloride 99 Carbon Dioxide 31 BUN 69 H Creatinine 3.05 H D Glucose 121 H Calcium 8.8 Medications Administered Current Inpatient Medications Acetaminophen (Acetaminophen 325 Mg Tab) 650 mg PO Q4H PRN PRN Reason: Pain or Fever Stop: 09/18/21 04:17 Aspirin (Aspirin 81 Mg Ectab) 81 mg PO HS LEONOR Stop: 09/18/21 20:59 Last Admin: 08/20/21 21:06 Dose: 81 mg Documented by: Finasteride (Finasteride 5 Mg Tab) 5 mg PO QAM LEONOR Stop: 09/18/21 08:59 Last Admin: 08/21/21 08:58 Dose: 5 mg Documented by: Furosemide (Furosemide 20 Mg Tab) 20 mg PO QAM [facility] Stop: 09/18/21 08:59 Last Admin: 08/21/21 08:58 Dose: 20 mg Documented by: Heparin Sodium (Porcine) (Heparin Sod 5,000 Unit/0.5 Ml Vial) 5,000 units SQ Q12 [facility] Stop: 09/18/21 08:59 Last Admin: 08/21/21 08:58 Dose: 5,000 units Documented by: Dopamine HCl/Dextrose (Dopamine / D5w) 400 mg in 250 mls @ 21.791 mls/hr IV .[id number] [facility]; Protocol Stop: 09/17/21 22:29 Last Admin: 08/21/21 10:58 Dose: 6.5 mcg/kg/min, 21.8 mls/hr Documented by: Doxycycline Hyclate 100 mg/ (Dextrose) 110 mls @ 50 mls/hr IV Q12H [facility] Stop: 08/26/21 08:59 Last Infusion: 08/21/21 11:16 Dose: Infused Documented by: Cefepime HCl 2,000 mg/ Syringe 20 mls @ 5 mls/min IV Q24H [facility]; Protocol Stop: 08/29/21 19:59 Last Admin: 08/20/21 20:40 Dose: 5 mls/min Documented by: Levothyroxine Sodium (Levothyroxine Sodium 50 Mcg Tablet) [facility] Stop: 09/18/21 06:29 Last Admin: 08/21/21 06:34 Dose: 50 mcg Documented by: Multivitamins (Multivitamin Tab) 1 tab PO [facility] Stop: 09/18/21 08:59 Last Admin: 08/21/21 08:58 Dose: 1 tab Documented by: Nitroglycerin (Nitroglycerin Sl 0.4 Mg/Tab Tab) 0.4 mg SL UD PRN PRN Reason: Chest Pain Stop: 09/18/21 04:17
--- NOTE | 2021-08-21 17:50 | Electrocardiogram Report ---
Test Reason : Blood Pressure : / mmHG Vent. Rate : 088 BPM Atrial Rate : 092 BPM P-R Int : 000 ms QRS Dur : 144 ms QT Int : 412 ms P-R-T Axes : 000 201 065 degrees QTc Int : 498 ms Atrial fibrillation Right bundle branch block Abnormal ECG Confirmed by Santo Fowler ([id number]) on 08/21/2021 5:50:00 PM Referred By: REFERRED SELF Confirmed By:Adan Fowler
[2021-08-21] MEDS: CEFEPIME 2,000 MG in SYRINGE 0 ML IV SCH (20:16)
[2021-08-21] MEDS: ASPIRIN 81 MG ECTAB PO SCH (21:29)
[2021-08-22 04:47] LABS: Hematocrit (blood only) 47.7 % (42-52); Hemoglobin 15.1 g/dL (14.0-18.0); Mean Corpuscular Hemoglobin 31.1 pg (25-34); Mean Corpuscular Hgb Conc 31.7 g/dL (32-36); Mean Corpuscular Volume 98.1 fL (80-100); Mean Platelet Volume 10.5 fL (7.4-10.4); Nucleated RBC # (auto) 0.04 K/uL (0-0); Nucleated RBC % (auto) 0.2 %; Platelet Count 149 K/uL (130-400); RDW Coefficient of Variation 16.9 % (11.5-14.5); RDW Standard Deviation 60.1 fL (36.4-46.3); Red Blood Count 4.86 M/uL (4.7-6.1)
[2021-08-22 05:20] LABS: BUN Creatinine Ratio 23.2 (10-20); Calcium 8.9 mg/dl (8.5-10.1); Creatinine Clr Calc Pharmacy 15.3 ml/min; Est GFR (African American) 16.1 ml/min; Est GFR (Non-African American) 13.9 ml/min; Potassium 5.3 mmol/L (3.5-5.1)
[2021-08-22] MEDS: LEVOTHYROXINE SODIUM 50 MCG TABLET PO SCH (05:34)
[2021-08-22 07:41] VITALS: TEMP 97.9
[2021-08-22] MEDS: DOXYCYCLINE HYCLATE 100 MG in DEXTROSE 5% 100 ML IV SCH (08:35)
[2021-08-22] MEDS: FINASTERIDE 5 MG TAB PO SCH (08:37)
[2021-08-22] MEDS: FUROSEMIDE 20 MG TAB PO SCH (08:38)
[2021-08-22] MEDS: HEPARIN SOD 5,000 UNIT/0.5 ML VIAL SQ SCH (08:38)
[2021-08-22] MEDS: MULTIVITAMIN TAB PO SCH (08:38)
[2021-08-22] MEDS ORDERED: SODIUM CHLORIDE 0.9% 1000ML 1,000 ML IV SCH (09:30)
[2021-08-22 10:30] LABS: Base Excess ABG -0.7 mEq/L (-9-1.8); HCO3 ABG 28 mmol/L (19-24); Oxygen Saturation ABG 93.9 % (90-95); PCO2 ABG 67 mmHg (35-46); PO2 ABG 73 mmHg (80-95); pH ABG 7.25 (7.35-7.45)
[2021-08-22 10:31] LABS: Allen Test Pos (Pos)
[2021-08-22] MEDS: DOPamine / D5W 400 MG/250 ML BAG IV SCH ×5 (10:39→21:19)
--- NOTE | 2021-08-22 10:58 | Consultation Report ---
NEPHROLOGY CONSULTATION NOTE DATE OF SERVICE: 08/22/2021 REASON FOR CONSULT: Oliguric acute renal failure. HISTORY OF PRESENT ILLNESS: The patient is an 89-year-old male who was admitted 3 days ago when he p resented to the hospital with altered mental status. Creatinine on admission was slightly abnormal, but since then has been going up and is now up to 3.67. On admission, it was 1.73, which is pretty mu ch his baseline. He has not made much urine. In almost 36 hours' time period, his urine output is le ss than 100 mL. The patient was very bradycardic with heart rate in the 20s and he is still requiring dopamine infusion to maintain heart rate. As per cardiology note, patient's has declined to hav e a pacemaker placement. The patient is unresponsive at this time and unable to give me any history. PAST MEDICAL AND SURGICAL HISTORY: Includes chronic kidney disease stage III with baseline creatinin e around 1.7, hypertension, peripheral arterial disease, hepatic cirrhosis, history of urothelial car cinoma of bladder, status post ____ and BCG, history of colon cancer, status post surgery in 2002, os teoarthritis, carpal tunnel surgery, colonoscopy, cystoscopy with biopsy, partial removal of colon, b ilateral knee replacement, cataract surgery, tonsillectomy, adenoidectomy, thoracentesis. MEDICATIONS: Medication at home was reviewed and is as per reconciliation list. He takes lisinopril 40 daily, spironolactone 25 daily. FAMILY HISTORY: Not significant for any renal disease. SOCIAL HISTORY: , lives with his . REVIEW OF SYSTEMS: Unable to obtain. PHYSICAL EXAMINATION: GENERAL: Unresponsive at this time. VITAL SIGNS: Blood pressure 104/69, pulse rate 88, temperature 36.6, 95% on 2 liter nasal cannula. HEENT: Mucous membrane moist. NECK: Supple. No JVD. CHEST: Bilateral decreased breath sounds, poor inspiratory effort. CARDIOVASCULAR: S1 and S2 regular. Soft systolic murmur heard. ABDOMEN: Soft, nontender. EXTREMITIES: Show trace edema. LABORATORY TEST: Creatinine on admission was 1.7. Since then, it has been going up and is now 3.67, BUN is 85. Sodium 134, potassium 5.3. Lactic acid not checked, but on admission was normal. Chest x-ray shows some pulmonary congestion with some improvement. ASSESSMENT AND PLAN: An 89-year-old male with oliguric acute renal failure in the setting of severe bradycardia at the time of admission. Acute renal failure: This is a classic acute tubular necrosis in the setting of severe bradycardia a t the time of admission with heart rate in the 20s. Given preexisting chronic kidney disease, it is n ot surprising that he went into acute tubular necrosis. This is not a volume depletion case and I wo uld not push IV fluid at this time. Prognosis is very poor given the severe oliguria and overall con dition. Reviewed cardiology note about not planning to have a pacemaker, so given this, he will defin itely not be a candidate for dialysis if such need arise. Job ID: [id number]
[2021-08-22 11:34] VITALS: BP 104/35
--- NOTE | 2021-08-22 11:39 | Cardiology Progress Note ---
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 Patient continues to require dopamine infusion to maintain heart rates. At this point, the patient has required dopamine drip for several days to maintain a heart rate. Now in ATN and only minimally responsive to pain. At this point, I believe most prudent course of action would be for hospice care. I discussed with Dr. Morales and she will discuss this with the patient's . Can continue dopamine drip until family at bedside, I suspect he will pass not long after the drip is discontinued. Admission and Anticipated Discharge Date Admission Date: August 19, 2021 Subjective Patient seen and examined, chart reviewed and case discussed with primary team and specialists. Currently minimally responsive to pain only. Remains on dopamine drip. Physical Exam Physical Exam: General: minimally responsive to pain only. No acute distress. HEENT: Normocephalic, atraumatic. Pupils equal, round and reactive to light and accommodation. Extraocular muscles are intact. Anicteric sclera. Moist mucous membranes. Neck: No JVD. No bruit. Cardiovascular: Irregularly irregular and slow. Positive S-4. Normal S-1 and S-2. No S-3. 3/6 mid to late systolic ejection murmur, greatest at the right sternal border, second intercostal space with radiation to the bilateral carotids. No rubs. Pulmonary: Clear to auscultation bilaterally. No rales, rhonchi, or wheezing. Abdomen: Bowel sounds x 4, soft. No rebound, guarding or tenderness. No organomegaly. Extremities: No clubbing, cyanosis or edema. +2 pedal pulses bilaterally. Skin: Warm and dry. Results & Data ([facility]) Vital Signs (Past 12 Hours) Vital Signs Temp Pulse Pulse Resp BP Pulse Ox Pulse Ox 08/22/21 11:33 36.6 C 89 16 104/35 L 94 08/22/21 07:40 36.6 C 88 19 104/69 95 08/22/21 04:00 93 08/22/21 03:19 36.5 C 94 H 26 H 120/57 L 97 08/22/21 00:00 92 H 08/21/21 23:59 36.4 C L 94 H 26 H 129/57 L 97
--- NOTE | 2021-08-22 12:37 | Hospitalist Progress Note ---
Date of Service August 22, 2021 Assessment & Plan (1) Metabolic encephalopathy: Plan: Multiple insults including acute respiratory failure with hypercapnia, intolerant of BIPAP and unable to receive mechanical ventilation given DNR status. UTI or pneumonia may be contributing, on antibiotics. Bradycardia 2/2 high grade AV block, requiring dopamine infusion. Emili grew in urine culture- no antifungal indicated per ID recs. (2) High-grade atrioventricular block: Plan: Holding home metoprolol, no pacemaker desired per family wishes, remains on dopamine infusion to keep heart rate up. Cont to try and wean as beta bryant washes out of system. (3) Acute respiratory failure with hypercapnia: Plan: possibly related to pneumonia, fluid overload, atelectasis or a combination. Cont with antibiotics, lasix was initially given with improvement in congestion on subsequent CXR, patient remains obtunded. ABG this am reveals hypercarbia causing respiratory acidosis. At 1015, he was on 2LPM --7.25/67/73. He was placed on BIPAP for about 2 hours and repeat gas revealed 7.3/60/67. He was exhibiting tachypnea with the mask on and using accessory muscles to breathe. There may be a component of anxiety here, however, CXR also reveals worsening pneumonia/pleural effusion on the right, likely contributing to his hypoxia. BIPAP titrated to 20/9, however, he is high risk for barotrauma, and this is not leading anywhere stable. This was explained to his and the decision was made to change him to comfort measures only in light of his worsening respiratory failure, worsening kidney failure, and persistent bradycardia. Will cont current therapies until she can be here in 1-2 hours. (4) Acute diastolic heart failure: Plan: Pulmonary congestion and evidence of small pleural effusion may be related to acute heart failure. This was improved on subsequent chest imaging. Repeat CXR this am reveals worsening of fluid/congestion vs pneumonia and his kidney function has declined preventing administration of more diuretic. He has also not eaten much in the past 24-48 hours and his BP is now 94/48. Progress to comfort measures as above. (5) Acute renal failure due to tubular necrosis: Plan: Stage 3 CKD at baseline. Baseline creatinine of 1.3-1.4, on admission with creatinine of 1.7. Continues to worsen. Likely ATN in setting of acute bradycardia per nephrology who saw him this morning. No fluids indicated and he remains in critical condition. Plan as above. (6) DVT prophylaxis: Plan: Heparin-will stop this now DNR/DNI Dispo-very guarded prognosis with multiple organ systems failing. This was discussed with his who has decided to stop the treatments and proceed wtih comfort measures. She will be here in the next 1-2 hours at which point we will transition him to comfort measures only. 45 minutes of critical care time was spent at the patient's bedside including assessment, ordering and interpreting studies, coordinating with nursing staff and ancillary care, discussing clinical picture with patient's and documentation. Adriana Morales DO [facility] Hospitalist Admission and Anticipated Discharge Date Admission Date: August 19, 2021 Subjective 89 yo M presented with altered mental status, found to have bradycardia, now on dopamine infusion. Family against placement of pacemaker. Patient is lethargic and only withdraws to pain He doesn't awaken to voice or follow commands He is still too lethargic to eat ABG reveals hypercarbia and repeat CXR reveals worsened effusion/pneumonia on the right. Hypoxia has increased and he is now on BIPAP with an elevated respiratory rate. He is using accessory muscles. Repeat ABG after 45 minutes on BIPAP revealed an improvement in CO2 levels and respiratory acidosis. Noted decreased tidal volume, so respiratory changed CIPAP settings to 18/9 instead of 14/5. Heart rate remains dependent on the dopamine infusion. Tried contacting by phone, however, no answer, LM for call back. Review of Systems Review of Systems: cannot obtain ROS as patient is lethargic and altered. Physical Exam Physical Exam: CONSTITUTIONAL: WNWD, vitals as above, obtunded. EYES: normal conjunctivae, no scleral icterus ENT: external ear and nose normal, oropharynx clear, mouth breathing. NECK: trachea midline RESPIRATORY: clear to auscultation bilaterally, no crackles, rales or wheezes, normal respiratory effort CARDIOVASCULAR: regular rate and rhythm, S1 and 2 heard without murmurs, gallops or rubs, no JVD, no peripheral edema GASTROINTESTINAL: normal bowel sounds, soft, ND, no guarding. MUSCULOSKELETAL: cannot assess, obtunded. SKIN: warm and dry NEUROLOGIC: obtunded, withdraws to pain Results & Data Results & Data ([facility]) Vital Signs (Past 12 Hours) Vital Signs Temp Pulse Resp BP Pulse Ox Pulse Ox 08/22/21 11:33 36.6 C 89 16 104/35 L 94 08/22/21 07:40 36.6 C 88 19 104/69 95 08/22/21 04:00 93 08/22/21 03:19 36.5 C 94 H 26 H 120/57 L 97 Laboratory Results Short CBC 08/18/21 08/18/21 08/18/21 Range/Units 18:49 18:49 18:49 WBC (4.8-10.8) K/uL RBC 5.04 (4.7-6.1) M/uL Hgb (14.0-18.0) g/dL Hct (42-52) % MCV 97.0 (80-100) fL MCH 31.3 (25-34) pg MCHC 32.3 (32-36) g/dL RDW Std Deviation 56.7 H (36.4-46.3) fL RDW Coeff of Naeem 16.4 H (11.5-14.5) % Plt Count (130-400) K/uL MPV 11.3 H (7.4-10.4) fL Immature Gran % (Auto) 0.2 % Neut % (Auto) 84.7 % Lymph % (Auto) 6.6 % Bledsoe % (Auto) 7.9 % Eos % (Auto) 0.4 % Baso % (Auto) 0.2 % Neut # (Auto) 7.72 H (1.4-6.5) K/uL Lymph # (Auto) 0.60 L (1.2-3.4) K/uL Bledsoe # (Auto) 0.72 H (0.11-0.59) K/uL Eos # (Auto) 0.04 (0-0.5) K/uL Baso # (Auto) 0.02 (0-0.2) K/uL Immature Gran # (Auto) 0.02 (0.00-0.02) K/uL Absolute Nucleated RBC (0-0) K/uL Nucleated RBC % (auto) % PT 11.9 (9.0-12.0) Seconds INR 1.2 H (0.9-1.1) ABG pH 7.28 L (7.35-7.45) ABG pCO2 72 H (35-46) mmHg ABG pO2 100 H (80-95) mmHg ABG HCO3 33 H (19-24) mmol/L ABG O2 Saturation 96.6 H (90-95) % ABG Base Excess 3.4 H (-9-1.8) mEq/L Hudson Test Pos (Pos) Barometric Pressure 721.2 mm/Hg Oxygen Given 2L Sodium (136-145) mmol/L Potassium (3.5-5.1) mmol/L Chloride (98-107) mmol/L Carbon Dioxide (21-32) mmol/L Anion Gap (3-11) BUN (7-18) mg/dl Creatinine (0.6-1.4) mg/dl Est Cr Clr Drug Dosing ml/min Est GFR ( Amer) ml/min Est GFR (Non-Af Amer) ml/min BUN/Creatinine Ratio (10-20) Glucose (70-99) mg/dl Lactate (0.4-2.0) mmol/L Calcium (8.5-10.1) mg/dl Phosphorus Magnesium (1.8-2.4) mg/dl Total Bilirubin (0.2-1) mg/dl AST (15-37) U/L ALT (12-78) Alkaline Phosphatase (45-117) U/L Troponin I (0-0.045) ng/ml Total Protein (6.4-8.2) gm/dl Albumin (3.4-5.0) gm/dl Globulin (2.5-4.0) gm/dl Albumin/Globulin Ratio (0.9-2) Procalcitonin (0-0.5) ng/ml TSH (0.300-4.500) uIu/ml Urine Color Urine Appearance (Clear) Urine pH (4.5-7.5) Ur Specific Basin (1.000-1.030) Urine Protein (Negative) Urine Glucose (UA) (Negative) Urine Ketones (Negative) Urine Blood (Negative) Urine Nitrite (Negative) Urine Bilirubin (Negative) Urine Urobilinogen (Negative) Ur Leukocyte Esterase (Negative) Urine WBC (Auto) (0-5) /hpf Urine RBC (Auto) (0-4) /hpf U Hyaline Cast (Auto) (0-5) /lpf U Epithel Cells (Auto) (0-5) /lpf Urine Bacteria (Auto) (Negative) Granular Casts (0) /lpf Urine Yeast (None Prsent) SARS-CoV-2 (PCR) (Negative) Influenza Type A (PCR) (Neg) Influenza Type B (PCR) (Neg) RSV (RT-PCR) (Neg) 08/18/21 08/18/21 08/18/21 Range/Units 18:49 18:49 18:49 WBC (4.8-10.8) K/uL RBC (4.7-6.1) M/uL Hgb (14.0-18.0) g/dL Hct (42-52) % MCV (80-100) fL MCH (25-34) pg MCHC (32-36) g/dL RDW Std Deviation (36.4-46.3) fL RDW Coeff of Naeem (11.5-14.5) % Plt Count (130-400) K/uL MPV (7.4-10.4) fL Immature Gran % (Auto) % Neut % (Auto) % Lymph % (Auto) % Bledsoe % (Auto) % Eos % (Auto) % Baso % (Auto) % Neut # (Auto) (1.4-6.5) K/uL Lymph # (Auto) (1.2-3.4) K/uL Bledsoe # (Auto) (0.11-0.59) K/uL Eos # (Auto) (0-0.5) K/uL Baso # (Auto) (0-0.2) K/uL Immature Gran # (Auto) (0.00-0.02) K/uL Absolute Nucleated RBC (0-0) K/uL Nucleated RBC % (auto) % PT (9.0-12.0) Seconds INR (0.9-1.1) ABG pH (7.35-7.45) ABG pCO2 (35-46) mmHg ABG pO2 (80-95) mmHg ABG HCO3 (19-24) mmol/L ABG O2 Saturation (90-95) % ABG Base Excess (-9-1.8) mEq/L Hudson Test (Pos) Barometric Pressure mm/Hg Oxygen Given Sodium 137 (136-145) mmol/L Potassium 4.7 (3.5-5.1) mmol/L Chloride 101 (98-107) mmol/L Carbon Dioxide 32 (21-32) mmol/L Anion Gap 4.0 (3-11) BUN 41 H (7-18) mg/dl Creatinine 1.73 H (0.6-1.4) mg/dl Est Cr Clr Drug Dosing 32.6 ml/min Est GFR ( Amer) 40.0 ml/min Est GFR (Non-Af Amer) 34.5 ml/min BUN/Creatinine Ratio 23.9 H (10-20) Glucose 104 H (70-99) mg/dl Lactate 1.0 (0.4-2.0) mmol/L Calcium 9.4 (8.5-10.1) mg/dl Phosphorus Magnesium (1.8-2.4) mg/dl Total Bilirubin 0.9 (0.2-1) mg/dl AST 14 L (15-37) U/L ALT 25 (12-78) Alkaline Phosphatase 220 H D (45-117) U/L Troponin I 0.026 (0-0.045) ng/ml Total Protein 6.9 (6.4-8.2) gm/dl Albumin 2.8 L (3.4-5.0) gm/dl Globulin 4.1 H (2.5-4.0) gm/dl Albumin/Globulin Ratio 0.7 L (0.9-2) Procalcitonin 0.13 (0-0.5) ng/ml TSH 3.200 (0.300-4.500) uIu/ml Urine Color Urine Appearance (Clear) Urine pH (4.5-7.5) Ur Specific Basin (1.000-1.030) Urine Protein (Negative) Urine Glucose (UA) (Negative) Urine Ketones (Negative) Urine Blood (Negative) Urine Nitrite (Negative) Urine Bilirubin (Negative) Urine Urobilinogen (Negative) Ur Leukocyte Esterase (Negative) Urine WBC (Auto) (0-5) /hpf Urine RBC (Auto) (0-4) /hpf U Hyaline Cast (Auto) (0-5) /lpf U Epithel Cells (Auto) (0-5) /lpf Urine Bacteria (Auto) (Negative) Granular Casts (0) /lpf Urine Yeast (None Prsent) SARS-CoV-2 (PCR) (Negative) Influenza Type A (PCR) (Neg) Influenza Type B (PCR) (Neg) RSV (RT-PCR) (Neg) 08/18/21 08/19/21 08/19/21 Range/Units 19:25 00:28 05:23 WBC (4.8-10.8) K/uL RBC 5.23 (4.7-6.1) M/uL Hgb (14.0-18.0) g/dL Hct (42-52) % MCV 96.4 (80-100) fL MCH 31.4 (25-34) pg MCHC 32.5 (32-36) g/dL RDW Std Deviation 56.3 H (36.4-46.3) fL RDW Coeff of Naeem 16.2 H (11.5-14.5) % Plt Count (130-400) K/uL MPV 11.1 H (7.4-10.4) fL Immature Gran % (Auto) 0.3 % Neut % (Auto) 87.2 % Lymph % (Auto) 4.4 % Bledsoe % (Auto) 6.9 % Eos % (Auto) 0.8 % Baso % (Auto) 0.4 % Neut # (Auto) 9.33 H (1.4-6.5) K/uL Lymph # (Auto) 0.47 L (1.2-3.4) K/uL Bledsoe # (Auto) 0.74 H (0.11-0.59) K/uL Eos # (Auto) 0.09 (0-0.5) K/uL Baso # (Auto) 0.04 (0-0.2) K/uL Immature Gran # (Auto) 0.03 H (0.00-0.02) K/uL Absolute Nucleated RBC (0-0) K/uL Nucleated RBC % (auto) % PT (9.0-12.0) Seconds INR (0.9-1.1) ABG pH (7.35-7.45) ABG pCO2 (35-46) mmHg ABG pO2 (80-95) mmHg ABG HCO3 (19-24) mmol/L ABG O2 Saturation (90-95) % ABG Base Excess (-9-1.8) mEq/L Hudson Test (Pos) Barometric Pressure mm/Hg Oxygen Given Sodium (136-145) mmol/L Potassium (3.5-5.1) mmol/L Chloride (98-107) mmol/L Carbon Dioxide (21-32) mmol/L Anion Gap (3-11) BUN (7-18) mg/dl Creatinine (0.6-1.4) mg/dl Est Cr Clr Drug Dosing ml/min Est GFR ( Amer) ml/min Est GFR (Non-Af Amer) ml/min BUN/Creatinine Ratio (10-20) Glucose (70-99) mg/dl Lactate (0.4-2.0) mmol/L Calcium (8.5-10.1) mg/dl Phosphorus Magnesium (1.8-2.4) mg/dl Total Bilirubin (0.2-1) mg/dl AST (15-37) U/L ALT (12-78) Alkaline Phosphatase (45-117) U/L Troponin I (0-0.045) ng/ml Total Protein (6.4-8.2) gm/dl Albumin (3.4-5.0) gm/dl Globulin (2.5-4.0) gm/dl Albumin/Globulin Ratio (0.9-2) Procalcitonin (0-0.5) ng/ml TSH (0.300-4.500) uIu/ml Urine Color Dark Yellow Urine Appearance Cloudy A (Clear) Urine pH 5.0 (4.5-7.5) Ur Specific Basin 1.024 (1.000-1.030) Urine Protein 2+ H (Negative) Urine Glucose (UA) Negative (Negative) Urine Ketones Trace H (Negative) Urine Blood Negative (Negative) Urine Nitrite Positive A (Negative) Urine Bilirubin 1+ H (Negative) Urine Urobilinogen Positive H (Negative) Ur Leukocyte Esterase 2+ H (Negative) Urine WBC (Auto) >30 H (0-5) /hpf Urine RBC (Auto) 0-4 (0-4) /hpf U Hyaline Cast (Auto) 10-30 H (0-5) /lpf U Epithel Cells (Auto) 5-10 H (0-5) /lpf Urine Bacteria (Auto) Negative (Negative) Granular Casts 1-5 H (0) /lpf Urine Yeast Budding w/ Hyphae A (None Prsent) SARS-CoV-2 (PCR) NEGATIVE (Negative) Influenza Type A (PCR) Negative (Neg) Influenza Type B (PCR) Negative (Neg) RSV (RT-PCR) Negative (Neg) 08/19/21 08/19/21 08/19/21 Range/Units 05:23 05:23 06:56 WBC (4.8-10.8) K/uL RBC (4.7-6.1) M/uL Hgb (14.0-18.0) g/dL Hct (42-52) % MCV (80-100) fL MCH (25-34) pg MCHC (32-36) g/dL RDW Std Deviation (36.4-46.3) fL RDW Coeff of Naeme (11.5-14.5) % Plt Count (130-400) K/uL MPV (7.4-10.4) fL Immature Gran % (Auto) % Neut % (Auto) % Lymph % (Auto) % Bledsoe % (Auto) % Eos % (Auto) % Baso % (Auto) % Neut # (Auto) (1.4-6.5) K/uL Lymph # (Auto) (1.2-3.4) K/uL Bledsoe # (Auto) (0.11-0.59) K/uL Eos # (Auto) (0-0.5) K/uL Baso # (Auto) (0-0.2) K/uL Immature Gran # (Auto) (0.00-0.02) K/uL Absolute Nucleated RBC (0-0) K/uL Nucleated RBC % (auto) % PT (9.0-12.0) Seconds INR (0.9-1.1) ABG pH 7.40 (7.35-7.45) ABG pCO2 50 H (35-46) mmHg ABG pO2 66 L (80-95) mmHg ABG HCO3 30 H (19-24) mmol/L ABG O2 Saturation 94.1 (90-95) % ABG Base Excess 3.8 H (-9-1.8) mEq/L Hudson Test Pos (Pos) Barometric Pressure 729.1 mm/Hg Oxygen Given 4L Sodium 134 L (136-145) mmol/L Potassium 4.8 (3.5-5.1) mmol/L Chloride 101 (98-107) mmol/L Carbon Dioxide 30 (21-32) mmol/L Anion Gap 3.0 (3-11) BUN 47 H (7-18) mg/dl Creatinine 1.97 H (0.6-1.4) mg/dl Est Cr Clr Drug Dosing 28.7 ml/min Est GFR ( Amer) 34.2 ml/min Est GFR (Non-Af Amer) 29.5 ml/min BUN/Creatinine Ratio 23.7 H (10-20) Glucose 128 H (70-99) mg/dl Lactate (0.4-2.0) mmol/L Calcium 9.6 (8.5-10.1) mg/dl Phosphorus Magnesium 2.0 (1.8-2.4) mg/dl Total Bilirubin (0.2-1) mg/dl AST (15-37) U/L ALT (12-78) Alkaline Phosphatase (45-117) U/L Troponin I 0.035 (0-0.045) ng/ml Total Protein (6.4-8.2) gm/dl Albumin (3.4-5.0) gm/dl Globulin (2.5-4.0) gm/dl Albumin/Globulin Ratio (0.9-2) Procalcitonin (0-0.5) ng/ml TSH (0.300-4.500) uIu/ml Urine Color Urine Appearance (Clear) Urine pH (4.5-7.5) Ur Specific Basin (1.000-1.030) Urine Protein (Negative) Urine Glucose (UA) (Negative) Urine Ketones (Negative) Urine Blood (Negative) Urine Nitrite (Negative) Urine Bilirubin (Negative) Urine Urobilinogen (Negative) Ur Leukocyte Esterase (Negative) Urine WBC (Auto) (0-5) /hpf Urine RBC (Auto) (0-4) /hpf U Hyaline Cast (Auto) (0-5) /lpf U Epithel Cells (Auto) (0-5) /lpf Urine Bacteria (Auto) (Negative) Granular Casts (0) /lpf Urine Yeast (None Prsent) SARS-CoV-2 (PCR) (Negative) Influenza Type A (PCR) (Neg) Influenza Type B (PCR) (Neg) RSV (RT-PCR) (Neg) 08/19/21 08/19/21 08/20/21 Range/Units 10:40 16:41 05:06 WBC (4.8-10.8) K/uL RBC (4.7-6.1) M/uL Hgb (14.0-18.0) g/dL Hct (42-52) % MCV (80-100) fL MCH (25-34) pg MCHC (32-36) g/dL RDW Std Deviation (36.4-46.3) fL RDW Coeff of Naeem (11.5-14.5) % Plt Count (130-400) K/uL MPV (7.4-10.4) fL Immature Gran % (Auto) % Neut % (Auto) % Lymph % (Auto) % Bledsoe % (Auto) % Eos % (Auto) % Baso % (Auto) % Neut # (Auto) (1.4-6.5) K/uL Lymph # (Auto) (1.2-3.4) K/uL Bledsoe # (Auto) (0.11-0.59) K/uL Eos # (Auto) (0-0.5) K/uL Baso # (Auto) (0-0.2) K/uL Immature Gran # (Auto) (0.00-0.02) K/uL Absolute Nucleated RBC (0-0) K/uL Nucleated RBC % (auto) % PT (9.0-12.0) Seconds INR (0.9-1.1) ABG pH (7.35-7.45) ABG pCO2 (35-46) mmHg ABG pO2 (80-95) mmHg ABG HCO3 (19-24) mmol/L ABG O2 Saturation (90-95) % ABG Base Excess (-9-1.8) mEq/L Hudson Test (Pos) Barometric Pressure mm/Hg Oxygen Given Sodium Cancelled (136-145) mmol/L Potassium Cancelled (3.5-5.1) mmol/L Chloride Cancelled (98-107) mmol/L Carbon Dioxide Cancelled (21-32) mmol/L Anion Gap Cancelled (3-11) BUN Cancelled (7-18) mg/dl Creatinine Cancelled (0.6-1.4) mg/dl Est Cr Clr Drug Dosing Cancelled ml/min Est GFR ( Amer) Cancelled ml/min Est GFR (Non-Af Amer) Cancelled ml/min BUN/Creatinine Ratio Cancelled (10-20) Glucose Cancelled (70-99) mg/dl Lactate (0.4-2.0) mmol/L Calcium Cancelled (8.5-10.1) mg/dl Phosphorus Cancelled Magnesium Cancelled (1.8-2.4) mg/dl Total Bilirubin (0.2-1) mg/dl AST (15-37) U/L ALT (12-78) Alkaline Phosphatase (45-117) U/L Troponin I 0.049 H* 0.078 H* (0-0.045) ng/ml Total Protein (6.4-8.2) gm/dl Albumin (3.4-5.0) gm/dl Globulin (2.5-4.0) gm/dl Albumin/Globulin Ratio (0.9-2) Procalcitonin (0-0.5) ng/ml TSH (0.300-4.500) uIu/ml Urine Color Urine Appearance (Clear) Urine pH (4.5-7.5) Ur Specific Basin (1.000-1.030) Urine Protein (Negative) Urine Glucose (UA) (Negative) Urine Ketones (Negative) Urine Blood (Negative) Urine Nitrite (Negative) Urine Bilirubin (Negative) Urine Urobilinogen (Negative) Ur Leukocyte Esterase (Negative) Urine WBC (Auto) (0-5) /hpf Urine RBC (Auto) (0-4) /hpf U Hyaline Cast (Auto) (0-5) /lpf U Epithel Cells (Auto) (0-5) /lpf Urine Bacteria (Auto) (Negative) Granular Casts (0) /lpf Urine Yeast (None Prsent) SARS-CoV-2 (PCR) (Negative) Influenza Type A (PCR) (Neg) Influenza Type B (PCR) (Neg) RSV (RT-PCR) (Neg) 08/20/21 08/20/21 08/21/21 Range/Units 05:06 06:41 05:05 WBC (4.8-10.8) K/uL RBC 5.31 (4.7-6.1) M/uL Hgb (14.0-18.0) g/dL Hct (42-52) % MCV 96.2 (80-100) fL MCH 31.5 (25-34) pg MCHC 32.7 (32-36) g/dL RDW Std Deviation 56.7 H (36.4-46.3) fL RDW Coeff of Naeem 16.4 H (11.5-14.5) % Plt Count (130-400) K/uL MPV 11.0 H (7.4-10.4) fL Immature Gran % (Auto) % Neut % (Auto) % Lymph % (Auto) % Bledsoe % (Auto) % Eos % (Auto) % Baso % (Auto) % Neut # (Auto) (1.4-6.5) K/uL Lymph # (Auto) (1.2-3.4) K/uL Bledsoe # (Auto) (0.11-0.59) K/uL Eos # (Auto) (0-0.5) K/uL Baso # (Auto) (0-0.2) K/uL Immature Gran # (Auto) (0.00-0.02) K/uL Absolute Nucleated RBC (0-0) K/uL Nucleated RBC % (auto) % PT (9.0-12.0) Seconds INR (0.9-1.1) ABG pH (7.35-7.45) ABG pCO2 (35-46) mmHg ABG pO2 (80-95) mmHg ABG HCO3 (19-24) mmol/L ABG O2 Saturation (90-95) % ABG Base Excess (-9-1.8) mEq/L Hudson Test (Pos) Barometric Pressure mm/Hg Oxygen Given Sodium 138 136 (136-145) mmol/L Potassium 5.3 H 5.4 H (3.5-5.1) mmol/L Chloride 100 99 (98-107) mmol/L Carbon Dioxide 31 31 (21-32) mmol/L Anion Gap 7.0 6.0 (3-11) BUN 54 H 69 H (7-18) mg/dl Creatinine 2.22 H 3.05 H D (0.6-1.4) mg/dl Est Cr Clr Drug Dosing 25.1 18.2 ml/min Est GFR ( Amer) 29.6 20.1 ml/min Est GFR (Non-Af Amer) 25.5 17.4 ml/min BUN/Creatinine Ratio 24.1 H 22.5 H (10-20) Glucose 99 121 H (70-99) mg/dl Lactate (0.4-2.0) mmol/L Calcium 8.8 8.8 (8.5-10.1) mg/dl Phosphorus 3.7 4.8 D Magnesium 2.2 2.3 (1.8-2.4) mg/dl Total Bilirubin (0.2-1) mg/dl AST (15-37) U/L ALT (12-78) Alkaline Phosphatase (45-117) U/L Troponin I (0-0.045) ng/ml Total Protein (6.4-8.2) gm/dl Albumin (3.4-5.0) gm/dl Globulin (2.5-4.0) gm/dl Albumin/Globulin Ratio (0.9-2) Procalcitonin (0-0.5) ng/ml TSH (0.300-4.500) uIu/ml Urine Color Urine Appearance (Clear) Urine pH (4.5-7.5) Ur Specific Basin (1.000-1.030) Urine Protein (Negative) Urine Glucose (UA) (Negative) Urine Ketones (Negative) Urine Blood (Negative) Urine Nitrite (Negative) Urine Bilirubin (Negative) Urine Urobilinogen (Negative) Ur Leukocyte Esterase (Negative) Urine WBC (Auto) (0-5) /hpf Urine RBC (Auto) (0-4) /hpf U Hyaline Cast (Auto) (0-5) /lpf U Epithel Cells (Auto) (0-5) /lpf Urine Bacteria (Auto) (Negative) Granular Casts (0) /lpf Urine Yeast (None Prsent) SARS-CoV-2 (PCR) (Negative) Influenza Type A (PCR) (Neg) Influenza Type B (PCR) (Neg) RSV (RT-PCR) (Neg) 08/21/21 08/22/21 08/22/21 Range/Units 05:05 04:26 04:26 WBC 16.60 H (4.8-10.8) K/uL RBC 5.10 4.86 (4.7-6.1) M/uL Hgb 15.1 (14.0-18.0) g/dL Hct 47.7 (42-52) % MCV 99.4 98.1 (80-100) fL MCH 31.0 31.1 (25-34) pg MCHC 31.2 L 31.7 L (32-36) g/dL RDW Std Deviation 61.5 H 60.1 H (36.4-46.3) fL RDW Coeff of Naeem 17.0 H 16.9 H (11.5-14.5) % Plt Count 149 (130-400) K/uL MPV 10.5 H 10.5 H (7.4-10.4) fL Immature Gran % (Auto) % Neut % (Auto) % Lymph % (Auto) % Bledsoe % (Auto) % Eos % (Auto) % Baso % (Auto) % Neut # (Auto) (1.4-6.5) K/uL Lymph # (Auto) (1.2-3.4) K/uL Bledsoe # (Auto) (0.11-0.59) K/uL Eos # (Auto) (0-0.5) K/uL Baso # (Auto) (0-0.2) K/uL Immature Gran # (Auto) (0.00-0.02) K/uL Absolute Nucleated RBC 0.04 H 0.04 H (0-0) K/uL Nucleated RBC % (auto) 0.2 0.2 % PT (9.0-12.0) Seconds INR (0.9-1.1) ABG pH (7.35-7.45) ABG pCO2 (35-46) mmHg ABG pO2 (80-95) mmHg ABG HCO3 (19-24) mmol/L ABG O2 Saturation (90-95) % ABG Base Excess (-9-1.8) mEq/L Hudson Test (Pos) Barometric Pressure mm/Hg Oxygen Given Sodium 134 L (136-145) mmol/L Potassium 5.3 H (3.5-5.1) mmol/L Chloride 99 (98-107) mmol/L Carbon Dioxide 30 (21-32) mmol/L Anion Gap 5.0 (3-11) BUN 85 H (7-18) mg/dl Creatinine 3.67 H D (0.6-1.4) mg/dl Est Cr Clr Drug Dosing 15.3 ml/min Est GFR ( Amer) 16.1 ml/min Est GFR (Non-Af Amer) 13.9 ml/min BUN/Creatinine Ratio 23.2 H (10-20) Glucose 100 H (70-99) mg/dl Lactate (0.4-2.0) mmol/L Calcium 8.9 (8.5-10.1) mg/dl Phosphorus Magnesium (1.8-2.4) mg/dl Total Bilirubin (0.2-1) mg/dl AST (15-37) U/L ALT (12-78) Alkaline Phosphatase (45-117) U/L Troponin I (0-0.045) ng/ml Total Protein (6.4-8.2) gm/dl Albumin (3.4-5.0) gm/dl Globulin (2.5-4.0) gm/dl Albumin/Globulin Ratio (0.9-2) Procalcitonin (0-0.5) ng/ml TSH (0.300-4.500) uIu/ml Urine Color Urine Appearance (Clear) Urine pH (4.5-7.5) Ur Specific Basin (1.000-1.030) Urine Protein (Negative) Urine Glucose (UA) (Negative) Urine Ketones (Negative) Urine Blood (Negative) Urine Nitrite (Negative) Urine Bilirubin (Negative) Urine Urobilinogen (Negative) Ur Leukocyte Esterase (Negative) Urine WBC (Auto) (0-5) /hpf Urine RBC (Auto) (0-4) /hpf U Hyaline Cast (Auto) (0-5) /lpf U Epithel Cells (Auto) (0-5) /lpf Urine Bacteria (Auto) (Negative) Granular Casts (0) /lpf Urine Yeast (None Prsent) SARS-CoV-2 (PCR) (Negative) Influenza Type A (PCR) (Neg) Influenza Type B (PCR) (Neg) RSV (RT-PCR) (Neg) 08/22/21 08/22/21 Range/Units 09:38 10:15 WBC (4.8-10.8) K/uL RBC (4.7-6.1) M/uL Hgb (14.0-18.0) g/dL Hct (42-52) % MCV (80-100) fL MCH (25-34) pg MCHC (32-36) g/dL RDW Std Deviation (36.4-46.3) fL RDW Coeff of Naeem (11.5-14.5) % Plt Count (130-400) K/uL MPV (7.4-10.4) fL Immature Gran % (Auto) % Neut % (Auto) % Lymph % (Auto) % Bledsoe % (Auto) % Eos % (Auto) % Baso % (Auto) % Neut # (Auto) (1.4-6.5) K/uL Lymph # (Auto) (1.2-3.4) K/uL B[place]soe # (Auto) (0.11-0.59) K/uL Eos # (Auto) (0-0.5) K/uL Baso # (Auto) (0-0.2) K/uL Immature Gran # (Auto) (0.00-0.02) K/uL Absolute Nucleated RBC (0-0) K/uL Nucleated RBC % (auto) % PT (9.0-12.0) Seconds INR (0.9-1.1) ABG pH Cancelled 7.25 L (7.35-7.45) ABG pCO2 Cancelled 67 H (35-46) mmHg ABG pO2 Cancelled 73 L (80-95) mmHg ABG HCO3 Cancelled 28 H (19-24) mmol/L ABG O2 Saturation Cancelled 93.9 (90-95) % ABG Base Excess Cancelled -0.7 (-9-1.8) mEq/L Hudson Test Cancelled Pos (Pos) Barometric Pressure Cancelled 728.5 mm/Hg Oxygen Given Cancelled 2L Sodium (136-145) mmol/L Potassium (3.5-5.1) mmol/L Chloride (98-107) mmol/L Carbon Dioxide (21-32) mmol/L Anion Gap (3-11) BUN (7-18) mg/dl Creatinine (0.6-1.4) mg/dl Est Cr Clr Drug Dosing ml/min Est GFR ( Amer) ml/min Est GFR (Non-Af Amer) ml/min BUN/Creatinine Ratio (10-20) Glucose (70-99) mg/dl Lactate (0.4-2.0) mmol/L Calcium (8.5-10.1) mg/dl Phosphorus Magnesium (1.8-2.4) mg/dl Total Bilirubin (0.2-1) mg/dl AST (15-37) U/L ALT (12-78) Alkaline Phosphatase (45-117) U/L Troponin I (0-0.045) ng/ml Total Protein (6.4-8.2) gm/dl Albumin (3.4-5.0) gm/dl Globulin (2.5-4.0) gm/dl Albumin/Globulin Ratio (0.9-2) Procalcitonin (0-0.5) ng/ml TSH (0.300-4.500) uIu/ml Urine Color Urine Appearance (Clear) Urine pH (4.5-7.5) Ur Specific Basin (1.000-1.030) Urine Protein (Negative) Urine Glucose (UA) (Negative) Urine Ketones (Negative) Urine Blood (Negative) Urine Nitrite (Negative) Urine Bilirubin (Negative) Urine Urobilinogen (Negative) Ur Leukocyte Esterase (Negative) Urine WBC (Auto) (0-5) /hpf Urine RBC (Auto) (0-4) /hpf U Hyaline Cast (Auto) (0-5) /lpf U Epithel Cells (Auto) (0-5) /lpf Urine Bacteria (Auto) (Negative) Granular Casts (0) /lpf Urine Yeast (None Prsent) SARS-CoV-2 (PCR) (Negative) Influenza Type A (PCR) (Neg) Influenza Type B (PCR) (Neg) RSV (RT-PCR) (Neg) BMP 08/22/21 04:26 Sodium 134 L Potassium 5.3 H Chloride 99 Carbon Dioxide 30 BUN 85 H Creatinine 3.67 H D Glucose 100 H Calcium 8.9 Medications Administered Current Inpatient Medications Aspirin (Aspirin 81 Mg Ectab) 81 mg PO HS [facility] Stop: 09/18/21 20:59 Last Admin: 08/21/21 21:29 Dose: Not Given Documented by: Finasteride (Finasteride 5 Mg Tab) 5 mg PO QAM [facility] Stop: 09/18/21 08:59 Last Admin: 08/22/21 08:37 Dose: Not Given Documented by: Furosemide (Furosemide 20 Mg Tab) 20 mg PO QAM [facility] Stop: 09/18/21 08:59 Last Admin: 08/22/21 08:38 Dose: Not Given Documented by: Heparin Sodium (Porcine) (Heparin Sod 5,000 Unit/0.5 Ml Vial) 5,000 units SQ Q12 [facility] Stop: 09/18/21 08:59 Last Admin: 08/22/21 08:38 Dose: 5,000 units Documented by: Dopamine HCl/Dextrose (Dopamine / D5w) 400 mg in 250 mls @ 15.086 mls/hr IV .[id number] [facility]; Protocol Stop: 09/17/21 22:29 Last Admin: 08/22/21 10:39 Dose: 4.5 mcg/kg/min, 15.1 mls/hr Documented by: Doxycycline Hyclate 100 mg/ (Dextrose) 110 mls @ 50 mls/hr IV Q12H [facility] Stop: 08/26/21 08:59 Last Infusion: 08/22/21 10:47 Dose: Infused Documented by: Cefepime HCl 2,000 mg/ Syringe 20 mls @ 5 mls/min IV Q24H [facility]; Protocol Stop: 08/29/21 19:59 Last Admin: 08/21/21 20:16 Dose: 5 mls/min Documented by: Levothyroxine Sodium (Levothyroxine Sodium 50 Mcg Tablet) [facility] Stop: 09/18/21 06:29 Last Admin: 08/22/21 05:34 Dose: Not Given Documented by: Nitroglycerin (Nitroglycerin Sl 0.4 Mg/Tab Tab) 0.4 mg SL UD PRN PRN Reason: Chest Pain Stop: 09/18/21 04:17
[2021-08-22 12:45] LABS: iSTAT Allen Test Pass; iSTAT Art Bld Gas pCO2 Correct 60 mmHg (35-46); iSTAT Art Bld Gas pH Corrected 7.287 (7.35-7.45); iSTAT Arterial Blood Gas HCO3 29 meg/L (19-24); iSTAT Arterial Blood Gas pCO2 60 mmHg (35-46); iSTAT Arterial Blood Gas pH 7.29 (7.35-7.45); iSTAT Arterial Blood Gas pO2 67 mmHg (80-95); iSTAT Arterial Blood Gas pO2 C 67; iSTAT Carbon Dioxide 30 mmol/L (24-31); iSTAT Hematocrit 46 % (42-52); iSTAT Hemoglobin 15.6 g/dl (14.0-18.0); iSTAT Potassium 5.5 mmol/L (3.3-5.0); iSTAT Site L Radial; iSTAT Sodium 133 mmol/L (135-144)
--- NOTE | 2021-08-22 13:12 | XRay Report ---
XR chest 1V portable CLINICAL HISTORY: obtunded, pna and pulm congestion, monitor. COMPARISON STUDY: 08/20/2021 TECHNIQUE: 1 view of the chest FINDINGS: Single frontal view of the chest demonstrates the heart size to again be enlarged. Compared to the pr evious study, there is increasing right pleural effusion and right basilar atelectasis. Underlying in filtrate cannot be excluded. The left hemithorax is clear. There is no evidence for pleural effusion. There is no evidence for vascular congestion. There is no acute osseous pathology. IMPRESSION: Worsening right pleural effusion, right basilar atelectasis and possible early right lowe r lobe pneumonia. ACT 112: Negative or not required by law. Electronically signed by: Franco Aleman M.D. 08/22/2021 1:11 PM
[2021-08-22 15:08] VITALS: PULSE 89; O2SAT 94
[2021-08-22] MEDS ORDERED: LORazepam 0.5 MG/1 ML VIAL IV PRN (15:46)
[2021-08-22] MEDS ORDERED: ONDANSETRON INJ 2 MG/ML 2 ML VIAL IV PRN (15:46)
[2021-08-22] MEDS ORDERED: GLYCOPYRROLATE 0.2 MG/ML VIAL IV PRN (15:46)
[2021-08-22] MEDS: HYDROmorphone INJ 0.5 MG/0.5 ML SYR IV PRN ×2 (16:23→23:54)
[2021-08-23] MEDS ORDERED: STAT IV Infusion **Titration per Protocol STA (00:05)
[2021-08-23] MEDS ORDERED: MoRPHine SULF/NSS 250 MG/250 ML BTL IV SCH (00:15)
--- NOTE | 2021-08-23 10:22 | Death Pronouncement Note ---
Date of Service August 23, 2021 Pronouncement Note Admission Date Admission Date: August 19, 2021 Date and Time of Date of : 08/23/21 Time of : 02:41 Contributing Factors (1) Metabolic encephalopathy: (2) High-grade atrioventricular block: (3) Acute respiratory failure with hypercapnia: (4) Acute diastolic heart failure: (5) Acute renal failure due to tubular necrosis: (6) DVT prophylaxis: Additional Data Confirmation of : no pulse, no respirations, no heart sounds and pupils fixed and dilated Family: at bedside Attending physician: Adriana Morales DO
--- NOTE | 2021-08-23 14:25 | Discharge Summary ---
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 As per the ER, the patient is confused for the last several days. Initially decli jorge a at home to come to the hospital. Finally called an ambulance and brought him to the hospital. The patient reports some nausea and some dizziness. Currently alert and awake, on BiPAP. Denies any pain. He says he is feeling okay. Denies any chest pain or cough. Denies any fever, denies any abdominal pain. He is oriented to name, could tell his date of , could not tell today's date or the place he is in. The patient was found to have bradycardia in the ER, heart rate was going into 20s. ER physician talked to cardiology and recommended dopamine drip as atropine did not help. To hold his home metoprolol. His ABG showed pH of 7.28 and pCO2 of 72. He was started on BiPAP, but is not requiring much oxygen. Urinalysis positive for UTI. COVID is negative. Able to call today morning. As per since about a week patient is confused. nauseous. Not eating. Usually ambulates with walker but yesterday whole day he sat on the chair. Her grand daughter told her that he is talking to people who are not there. Before these his mental status was fine.As per they discussed about code status though it is not written and as per patient wanted to be DNR/DNI. Admission Exam Per Admitting Provider PHYSICAL EXAMINATION: VITAL SIGNS: Temperature 35.5, pulse 74, respiratory rate 21, blood pressure 159/91, and oxygen 93% on BiPAP. HEENT: Pupils equal, round and reactive to light. NECK: No JVD. No masses. CARDIOVASCULAR: S1 and S2 heard, regular rate and rhythm. No murmur, no gallop. RESPIRATORY SYSTEM: Normal AP diameter. No accessory muscle use. No wheezing, no crackles. ABDOMEN: Soft, bowel sounds present, nontender, no distention. CENTRAL NERVOUS SYSTEM: Alert and awake, oriented to name only, can tell his date of . Speech is clear. No facial droop seen. Moves extremities. EXTREMITIES: No edema, no erythema seen. Principal Diagnosis Acute metabolic encephalopathy High grade atrioventricular block Acute respiratory failure with hypercapnia Acute diastolic heart failure Acute renal failure due to tubular necrosis RLL pneumonia Discharge Exam see note Discharge Data Allergies Allergy/AdvReac Type Severity Reaction Status Date / Time No Known Allergies Allergy Unknown Verified 08/18/21 18:27 Consultations 08/18/21 22:39 ED Decision to Admit Stat 08/19/21 08:00 Consult Cardiology Routine Consult Pulmonology Routine 08/19/21 08:39 Consult Infectious Diseases Routine 08/19/21 10:06 Consult Urology Routine 08/22/21 09:09 Consult Nephrology Routine 08/22/21 10:14 Consult Palliative Care Routine 08/22/21 15:46 Consult Palliative Care Routine Ordered Studies 08/18/21 18:21 CT head/brain wo con Urgent 08/18/21 18:56 CT abd pelvis wo con Urgent Hospital Course (1) Metabolic encephalopathy: Multiple insults including acute respiratory failure with hypercapnia, intolerant of BIPAP and unable to receive mechanical ventilation given DNR status. UTI or pneumonia may be contributing, continues on broad spectrum antibiotics. Bradycardia 2/2 high grade AV block, requiring dopamine infusion. Emili grew in urine culture-no antifungal indicated per ID recs. Continued on antibiotics for RLL pnuemonia. Held home metoprolol, no pacemaker desired per family wishes, remains on dopamine infusion to keep heart rate up. Cont to try and wean as beta bryant washes out of system. (2) High-grade atrioventricular block: (3) Acute respiratory failure with hypercapnia: possibly related to pneumonia, fluid overload, atelectasis or a combination. Cont with antibiotics, lasix was initially given with improvement in congestion on subsequent CXR, patient remains obtunded. ABG this am reveals hypercarbia causing respiratory acidosis. At 1015, he was on 2LPM --7.25/67/73. He was placed on BIPAP for about 2 hours and repeat gas revealed 7.3/60/67. He was exhibiting tachypnea with the mask on and using accessory muscles to breathe. There may be a component of anxiety here, however, CXR also reveals worsening pneumonia/pleural effusion on the right, likely contributing to his hypoxia. BIPAP titrated to 20/9, however, he is high risk for barotrauma, and he was not showing signs of improvement. This was explained to his and the decision was made to change him to comfort measures in light of his worsening respiratory failure, worsening kidney failure, and persistent bradycardia. (4) Acute diastolic heart failure: Pulmonary congestion and evidence of small pleural effusion may be related to acute heart failure. This was improved on subsequent chest imaging. Repeat CXR this am reveals worsening of fluid/congestion vs pneumonia and his kidney function has declined preventing administration of more diuretic. Poor oral intake and hypotension was present. Progress to comfort measures as above. (5) Acute renal failure due to tubular necrosis: Stage 3 CKD at baseline. Baseline creatinine of 1.3-1.4, on admission with creatinine of 1.7. Continues to worsen. Likely ATN in setting of acute bradycardia per nephrology who saw him. No fluids indicated and he remains in critical condition. Plan as above. (6) RLL pneumonia: antibiotics as above. He was transitioned to comfort measures only and . Total Time Total Time Spent Total Time Spent (In Minutes): 60 Discharge Plan Discharge Items Patient Disposition: Discharge Diagnosis: Acute metabolic encephalopathy High grade atrioventricular block Acute respiratory failure with hypercapnia Acute diastolic heart failure Acute renal failure due to tubular necrosis RLL pneumonia Other Date/Time: 08/23/21 04:36
--- NOTE | 2021-09-10 10:23 | Coding Query ---
SEPSIS To promote full compliance with coding requirements relating to patient care, physician participation is requested in all cases of harness builder uncertainty. Please assist us with the question(s) below: In responding to this query, please exercise your independent professional judgement. The fact that a question is asked does not imply that any particular answer is desired or expected. We appreciate your clarification on this issue. Throughout the medical record, you have clearly documented a localized infection and your patient has clinical evidence of a generalized sepsis or severe sepsis. The term urosepsis is a nonspecific entity and is coded as an UTI. If the patient has sepsis, severe sepsis, from an urinary source or some other source, please clarify in your response below. The medical record reflects the following clinical findings: 08/20 progress note mentioned possibily sepsis. Pt admitted with Pneumonia, bradycarda and acute respiratory falure with hypercarbia. Please check below and thank you. Kurtis Bhatt [facility] ____ ( )Bacteremia (Nonspecific laboratory finding of bacteria in the blood) Specify Organism ( ) Present on Admission ( ) Not present on admission ( ) Unable to clinically determine ( ) Septicemia (Systemic disease associated with the presence of pathogenic microorganisms in the blood): Specify Organism ( ) Present on Admission ( ) Not present on admission ( ) Unable to clinically determine () Sepsis Specify Organism Specify Associated Condition/Diagnosis ( ) Present on Admission ( ) Not present on admission () Unable to clinically determine ( ) Severe Sepsis (Sepsis associated with acute organ dysfunction) Specify Organism Specify Associated Condition/Diagnosis ( ) Present on Admission ( ) Not present on admission ( ) Unable to clinically determine ( ) Septic Shock (Severe sepsis with acute circulatory failure, unexplained by other causes) ( ) Present on Admission ( ) Not present on admission ( ) Unable to clinically determine (x) Other, patient has: high grade AV block appears to have come first. This caused the need for dopamine, not a septic shock picture. Rising leukocytosis and tachypnea may have been a developing sepsis picture in the setting of pneumonia, however, there was no significant bacteremia or septicemia, and there was an alternative reason for these, namely multiorgan failure including renal failure, circulatory failure on a couple of days of dopamine and hypercarbic respiratory failure. sms MTDD
== END 2021-08-23 04:36 | disposition expired | DRG 189 ==
LOC: ED 18:09 → SUATTDRO 08-19 02:16 → EDINP 08-19 02:16 → 1E 08-19 04:21